=== PATIENT | female | born 1965 | race Caucasian/White ===

== ENCOUNTER → 2017-05-17 07:23 | Outpatient (CLI) | payer OTHER, SELFPAY ==
[2017-05-17 10:19] LABS: Absolute Lymphocyte Count 1.53 X10^3/ul (0.83-4.51); Basophil# 0.01 X10^3/uL; Basophil% 0.1 % (0-1); Eosinophil# 0.07 X10^3/uL; Eosinophils% 0.8 % (0-5); Hematocrit 41.5 % (37-47); Hemoglobin 13.3 g/dl (12.0-15.0); Lymphocyte # 1.53 X10^3/ul (4.0); Lymphocyte % 18.4 % (19-41); Mean Corpuscular Hgb 31.9 pg (27.0-32.0); Mean Corpuscular Volume 99.5 fL (81-99); Mean Platelet Vol. 9.5 fl (6.2-12.0); Monocyte# 0.74 X10^3/uL; Monocyte% 8.9 % (0-10); Neutrophil # 5.95 X10^3/uL (2.7-7.7); Neutrophil % 71.7 % (47-70); Platelet Count 241 K/mm3 (150-450); RBC Distribution Width CV 13.7 % (11.6-14.6); RBC Distribution Width SD 49.2 fl (35.1-43.9); Red Blood Count 4.17 M/mm3 (4.2-5.4); White Blood Count 8.3 K/mm3 (4.4-11.0)
[2017-05-17 10:26] LABS: POSITIVE DIFFERENTIAL NO
[2017-05-17 10:27] LABS: POSITIVE COUNT NO; POSITIVE MORPHOLOGY NO
[2017-05-17 10:34] LABS: ALB/GLOB Ratio 1.2 RATIO (0.9-2.4); AST(SGOT) 22 U/L (15-37); Alanine Aminotransfer ALT/SGPT 24 U/L (13-56); Albumin, Serum 3.7 g/dL (3.2-5.0); Alkaline Phosphatase 60 U/L (45-117); Anion Gap 6 (5-15); BUN 10 mg/dL (7-18); BUN/Creat Ratio 13.4 RATIO (10-20); Calcium,Total 8.9 mg/dL (8.5-10.1); Chloride 104 mmol/L (98-107); Creatinine, Serum 0.75 mg/dL (0.55-1.02); EST Glomerular Filtration Rate 87 mL/min (>60); Est Glom Filt Rate - Afr Amer 105 mL/min (>60); Globulin 3.1 g/dL (2.2-4.2); Glucose 84 mg/dL (74-106); Potassium 4.4 mmol/L (3.5-5.1); Protein, Total 6.8 g/dL (6.4-8.2); Sodium Level 141 mmol/L (136-145)
== END ==
PROVIDERS: Family Provider Family Medicine; PCP Family Medicine; Visit Provider Internal Medicine Rheumatology
DX: M06.09 Rheumatoid arthritis without rheumatoid factor, multiple sites (principal); Z79.899 Other long term (current) drug therapy; G43.809 Other migraine, not intractable, without status migrainosus; J45.909 Unspecified asthma, uncomplicated
CPT/HCPCS: 36415; 80053; 85025

== ENCOUNTER → 2017-08-05 13:50 | Outpatient (CLI) | payer OTHER, SELFPAY ==
[2017-08-05 15:44] LABS: Absolute Lymphocyte Count 2.02 X10^3/ul (0.83-4.51); Absolute Neutrophil Count 5.4 X10^3/uL (2.0-7.7); Basophil# 0.01 X10^3/uL; Basophil% 0.1 % (0-1); Eosinophil# 0.03 X10^3/uL; Eosinophils% 0.4 % (0-5); Hematocrit 42.2 % (37-47); Lymphocyte # 2.02 X10^3/ul (4.0); Lymphocyte % 25.2 % (19-41); Mean Corp Hgb Conc 33.2 g/gl (32-36); Mean Corpuscular Hgb 32.2 pg (27.0-32.0); Mean Platelet Vol. 9.5 fl (6.2-12.0); Monocyte# 0.56 X10^3/uL; Neutrophil # 5.37 X10^3/uL (2.7-7.7); Neutrophil % 67.1 % (47-70); Platelet Count 237 K/mm3 (150-450); RBC Distribution Width CV 14.2 % (11.6-14.6); RBC Distribution Width SD 48.7 fl (35.1-43.9); Red Blood Count 4.35 M/mm3 (4.2-5.4)
[2017-08-05 15:49] LABS: POSITIVE COUNT NO; POSITIVE DIFFERENTIAL NO; POSITIVE MORPHOLOGY NO
[2017-08-05 16:12] LABS: ALB/GLOB Ratio 1.4 RATIO (0.9-2.4); AST(SGOT) 18 U/L (15-37); Alanine Aminotransfer ALT/SGPT 20 U/L (13-56); Alkaline Phosphatase 72 U/L (45-117); Anion Gap 7 (5-15); BUN 11 mg/dL (7-18); BUN/Creat Ratio 15.5 RATIO (10-20); Calcium,Total 8.8 mg/dL (8.5-10.1); Chloride 106 mmol/L (98-107); Creatinine, Serum 0.71 mg/dL (0.55-1.02); EST Glomerular Filtration Rate 92 mL/min (>60); Est Glom Filt Rate - Afr Amer 112 mL/min (>60); Globulin 2.8 g/dL (2.2-4.2); Glucose 87 mg/dL (74-106); Protein, Total 6.8 g/dL (6.4-8.2); Sodium Level 141 mmol/L (136-145)
== END ==
PROVIDERS: Family Provider Family Medicine; PCP Family Medicine; Visit Provider Internal Medicine Rheumatology
DX: M06.09 Rheumatoid arthritis without rheumatoid factor, multiple sites (principal); G43.809 Other migraine, not intractable, without status migrainosus; J45.909 Unspecified asthma, uncomplicated; Z79.899 Other long term (current) drug therapy
CPT/HCPCS: 36415; 80053; 85025

== ENCOUNTER → 2017-10-21 13:55 | Outpatient (CLI) | payer OTHER, SELFPAY ==
[2017-10-21 15:32] LABS: Absolute Lymphocyte Count 2.53 X10^3/ul (0.83-4.51); Absolute Neutrophil Count 5.4 X10^3/uL (2.0-7.7); Basophil# 0.01 X10^3/uL; Basophil% 0.1 % (0-1); Eosinophil# 0.04 X10^3/uL; Eosinophils% 0.5 % (0-5); Hematocrit 41.4 % (37-47); Hemoglobin 13.6 g/dl (12.0-15.0); Lymphocyte # 2.53 X10^3/ul (4.0); Lymphocyte % 29.3 % (19-41); Mean Corp Hgb Conc 32.9 g/gl (32-36); Mean Corpuscular Hgb 32.3 pg (27.0-32.0); Mean Corpuscular Volume 98.3 fL (81-99); Mean Platelet Vol. 9.2 fl (6.2-12.0); Monocyte# 0.67 X10^3/uL; Monocyte% 7.8 % (0-10); Neutrophil # 5.38 X10^3/uL (2.7-7.7); Neutrophil % 62.2 % (47-70); Platelet Count 259 K/mm3 (150-450); RBC Distribution Width CV 14.8 % (11.6-14.6); RBC Distribution Width SD 52.5 fl (35.1-43.9); Red Blood Count 4.21 M/mm3 (4.2-5.4); White Blood Count 8.6 K/mm3 (4.4-11.0)
[2017-10-21 15:44] LABS: ALB/GLOB Ratio 1.2 RATIO (0.9-2.4); AST(SGOT) 15 U/L (15-37); Alanine Aminotransfer ALT/SGPT 21 U/L (13-56); Albumin, Serum 3.7 g/dL (3.2-5.0); Alkaline Phosphatase 72 U/L (45-117); Anion Gap 5 (5-15); BUN 12 mg/dL (7-18); BUN/Creat Ratio 15.3 RATIO (10-20); Calcium,Total 8.7 mg/dL (8.5-10.1); Chloride 106 mmol/L (98-107); Creatinine, Serum 0.78 mg/dL (0.55-1.02); EST Glomerular Filtration Rate 82 mL/min (>60); Est Glom Filt Rate - Afr Amer 99 mL/min (>60); Globulin 3.2 g/dL (2.2-4.2); Glucose 98 mg/dL (74-106); Potassium 3.8 mmol/L (3.5-5.1); Protein, Total 6.9 g/dL (6.4-8.2); Sodium Level 144 mmol/L (136-145)
[2017-10-21 15:48] LABS: POSITIVE COUNT NO; POSITIVE DIFFERENTIAL NO; POSITIVE MORPHOLOGY NO
== END ==
PROVIDERS: Family Provider Family Medicine; PCP Family Medicine; Visit Provider Internal Medicine Rheumatology
DX: M06.09 Rheumatoid arthritis without rheumatoid factor, multiple sites (principal); G43.809 Other migraine, not intractable, without status migrainosus; J45.909 Unspecified asthma, uncomplicated; Z79.899 Other long term (current) drug therapy
CPT/HCPCS: 36415; 80053; 85025

== ENCOUNTER → 2018-01-06 16:48 | Outpatient (CLI) | payer OTHER, SELFPAY ==
[2018-01-06 17:51] LABS: Absolute Lymphocyte Count 3.58 X10^3/ul (0.83-4.51); Basophil# 0.01 X10^3/uL; Basophil% 0.1 % (0-1); Eosinophil# 0.08 X10^3/uL; Eosinophils% 0.8 % (0-5); Hematocrit 42.3 % (37-47); Hemoglobin 13.6 g/dl (12.0-15.0); Lymphocyte # 3.58 X10^3/ul (4.0); Lymphocyte % 37.5 % (19-41); Mean Corp Hgb Conc 32.2 g/gl (32-36); Mean Corpuscular Hgb 32.5 pg (27.0-32.0); Mean Platelet Vol. 9.6 fl (6.2-12.0); Monocyte# 0.91 X10^3/uL; Monocyte% 9.5 % (0-10); Neutrophil # 4.95 X10^3/uL (2.7-7.7); POSITIVE COUNT NO; POSITIVE DIFFERENTIAL NO; POSITIVE MORPHOLOGY NO; Platelet Count 255 K/mm3 (150-450); RBC Distribution Width CV 14.8 % (11.6-14.6); RBC Distribution Width SD 53.6 fl (35.1-43.9); Red Blood Count 4.19 M/mm3 (4.2-5.4); White Blood Count 9.5 K/mm3 (4.4-11.0)
[2018-01-06 18:03] LABS: ALB/GLOB Ratio 1.3 RATIO (0.9-2.4); AST(SGOT) 14 U/L (15-37); Alanine Aminotransfer ALT/SGPT 22 U/L (13-56); Albumin, Serum 3.7 g/dL (3.2-5.0); Alkaline Phosphatase 82 U/L (45-117); Anion Gap 7 (5-15); BUN 13 mg/dL (7-18); BUN/Creat Ratio 14.5 RATIO (10-20); Chloride 106 mmol/L (98-107); EST Glomerular Filtration Rate 70 mL/min (>60); Est Glom Filt Rate - Afr Amer 85 mL/min (>60); Globulin 2.9 g/dL (2.2-4.2); Glucose 85 mg/dL (74-106); Protein, Total 6.6 g/dL (6.4-8.2); Sodium Level 144 mmol/L (136-145)
== END ==
PROVIDERS: Family Provider Family Medicine; PCP Family Medicine; Referring Provider Internal Medicine Rheumatology; Visit Provider Internal Medicine Rheumatology
DX: M06.09 Rheumatoid arthritis without rheumatoid factor, multiple sites (principal); Z79.899 Other long term (current) drug therapy; G43.809 Other migraine, not intractable, without status migrainosus; J45.909 Unspecified asthma, uncomplicated
CPT/HCPCS: 36415; 80053; 85025

== ENCOUNTER 2018-01-09 02:55 | Emergency (ER) | payer OTHER, SELFPAY ==
[2018-01-09 02:56] VITALS: BP 117/87; PULSE 88; RESP 14; TEMP 36.6; O2SAT 100; BMI 19.8
[2018-01-09] MEDS: 0.9% Normal Saline 1,000 ML 1000 ML IV (03:07)
[2018-01-09] MEDS: Ondansetron 4 MG/2 ML Vial IV ×2 (03:07→03:47)
--- NOTE | 2018-01-09 03:09 | ED.VISSUMM ---
- ER Visit Summary Date of Service: 01/09/18 Chief Complaint: Nausea and vomiting History of Present Illness: The patient is a 52 F past medical history of COPD and rheumatoid arthritis. Is having elective colonoscopy later today. On Tuesday she started drinking the bowel prep GoLYTELY. She started having nausea and vomiting around midnight which is continued. She states she is thrown up 7 times. Denies any hematemesis. Has had bowel movement since the GoLYTELY. She denies any abdominal pain other than some mild cramping. Denies any dysuria. Denies any fever. States she felt fine prior to taking the GoLYTELY. Physical Examination: Vital signs are stable. Afebrile. Her initial blood pressure is 117/87. She is in no distress. She is actively vomiting in the room. H EENT exam pupils round reactive light. No facial droop. No signs of trauma. Tongue has dry mucous membranes. Neck nontender. Lungs clear to auscultation bilaterally. Heart regular rate and rhythm no murmur. Abdomen is soft. Nondistended. Normal bowel sounds. No peritoneal signs. No signs of obstruction. Patient is moving all 4 extremities. The neurovascular intact. No edema. Neurologically she is awake and alert with no focal motor deficits. Test Results: None are necessary at this time. I did review the patient had recent lab that were unremarkable. These included a CBC, BMP and liver enzymes. Emergency Department Course and Treatment: Patient treated with IV fluids and IV Zofran. P.o. fluid challenge. Patient was given a second dose of IV Zofran. She is feeling better. At 04:45 AM she has been able to hold down p.o. fluids. She feels comfortable being discharged home. Her repeat abdominal exam is benign and nontender. Treatment Plan: Plenty of fluids and rest. Zofran as needed for nausea. Disposition: Discharge Impression: Acute nausea and vomiting after taking the bowel prep GoLytely Mild dehydration This note was generated with [employer]* dictation software. It may contain incorrect words, spelling, and punctuation that were not noted in review of the chart prior to signing ED Disposition - Plan for ED Patient: Disposition: Home or Assisted Living Chief Complaint: Nausea/Vomiting Instructions: ED Nausea Vomiting Prescriptions: Ondansetron [Zofran Odt] 4 mg PO Q8H PRN PRN #7 tab PRN Reason: Nausea Referrals: Hari Elizondo MD [Primary Care Provider] - As Needed Additional Instructions: Plenty of fluids and rest. Increase your diet very slowly. Next Call follow-up with your GI doctor. I would call their office first thing this morning once they open if you are not going to have the colonoscopy done. Zofran as needed for nausea. You may dissolve the medication underneath her tongue or swallow the pill if able. Return if unable to keep fluids down or are feeling worse.
--- NOTE | 2018-01-09 03:11 | ED.DEP ---
ED Disposition - Plan for ED Patient: Disposition: Home or Assisted Living Chief Complaint: Nausea/Vomiting Instructions: ED Nausea Vomiting Prescriptions: Ondansetron [Zofran Odt] 4 mg PO Q8H PRN PRN #7 tab PRN Reason: Nausea Referrals: Hari Elizondo MD [Primary Care Provider] - As Needed Additional Instructions: Plenty of fluids and rest. Increase your diet very slowly. Next Call follow-up with your GI doctor. I would call their office first thing this morning once they open if you are not going to have the colonoscopy done. Zofran as needed for nausea. You may dissolve the medication underneath her tongue or swallow the pill if able. Return if unable to keep fluids down or are feeling worse.
[2018-01-09 03:52] VITALS: BP 119/63; PULSE 83; RESP 16; O2SAT 99
[2018-01-09] MEDS: Ondansetron ODT 4 MG Tablet PO (04:58)
[2018-01-09 05:01] VITALS: BP 122/71; PULSE 79; PULSE 81; RESP 18; O2SAT 96
== END 2018-01-09 05:07 | disposition home or self-care (01) ==
LOC: ED 03:19
PROVIDERS: Emergency Provider Emergency Medicine; Family Provider Family Medicine; PCP Family Medicine
DX: R11.2 Nausea with vomiting, unspecified (principal); E86.0 Dehydration; M06.9 Rheumatoid arthritis, unspecified; Z72.0 Tobacco use; Z79.899 Other long term (current) drug therapy
CPT/HCPCS: 96374; 96376; 99283; J7030; J2405

== ENCOUNTER 2018-06-07 07:35 | Emergency (ER) | payer OTHER, SELFPAY ==
[2018-06-07 07:36] VITALS: BP 131/84; PULSE 86; RESP 18; TEMP 36.8; O2SAT 100; BMI 19.1
--- NOTE | 2018-06-07 08:06 | CT_ITS ---
STUDY: CTA CHEST REASON FOR EXAM: Female, 52 years old. Shortness of breath. RADIATION DOSAGE (If Supplied By Facility): CTDIvol = ( 3.36 ) mGy, DLP = ( 134.48 ) mGycm TECHNIQUE: The examination was performed with the intravenous administration of 100 IV Isovue 370. Post-processing of the angiographic images was performed, with multiplanar reformation and 3D reconstruction. Individualized dose optimization techniques were used for this CT. COMPARISON: None. FINDINGS: Bilateral breast implants. Normal enhancement of the main pulmonary artery and right and left pulmonary arteries. Normal enhancement of the bilateral peripheral pulmonary arteries. There is no demonstrated pulmonary embolism. Normal thoracic aorta and visualized great vessels. There is no demonstrated aortic dissection. Normal heart and pericardium. Normal mediastinum. Normal hilar regions. Normal visualized trachea and bronchi. Hyperinflation. Emphysematous changes with bullous formation in both lungs more prominent in the upper lobes. Normal pulmonary parenchyma. Normal pleura. Normal chest wall structures. Normal osseous structures. Normal visualized upper abdomen. CT/CTA Chest W/WO Contrast IMPRESSION: Hyperinflation. Emphysematous changes. Electronically Signed: Naun Pastor, at 9:52 EDT , Service support ,
--- NOTE | 2018-06-07 08:12 | ED.DCSUM_ITS ---
- ER Visit Summary Date of Service: 06/07/18 Chief Complaint: My lungs hurt History of Present Illness: The patient is a 52 F with history of smoking and asthma. She is on methotrexate and 5 mg prednisone at baseline for rheumatoid arthritis. Patient states she was cleaning on May 27 and start up some dust. She woke up the next morning with cough and her lungs hurt. She went to urgent care that day and was given Flonase. They told her to maintain her baseline prednisone. Patient went to see Anthony Kruger 3 times over the past week and a half. She had a clear chest x-ray. She is currently on prednisone 40 mg and doxycycline. Patient presents stating that her lungs still hurt and she has not significantly better. Physical Examination: Vital signs are unremarkable. Patient sitting upright in bed no acute distress. She is speaking full sentences. Head neck examination unremarkable. Heart is regular rate and rhythm. Lung sounds are clear. Abdomen is soft nontender. Lower extremity examination reveals no calf tenderness or edema. Test Results: CBC was a white count of 14.3 but patient has been on increased dose of steroids for last week and a half. Chemistry studies unremarkable. CTA of the chest shows hyperinflation with some emphysematous changes. Emergency Department Course and Treatment: She was given a DuoNeb treatment. On repeat evaluation she does feel that that helped. She does have an inhaler at home and will use that every 4-6 hours to see if that helps her symptoms. She will be given a new prescription for prednisone tabs to do a taper as she is about out of her pills. She will be referred to pulmonology for follow-up. Treatment Plan: [] Disposition: Discharge Impression: Dyspnea This note was generated with [employer] dictation software. It may contain incorrect words, spelling, and punctuation that were not noted in review of the chart prior to signing ED Disposition - Plan for ED Patient: Referrals: Hari Elizondo MD [Primary Care Provider] -
[2018-06-07] MEDS: Ipratropium/Albuterol Sulfate 3 ML AMPUL.NEB INHALATION (08:19)
[2018-06-07 08:20] VITALS: PULSE 80; RESP 16
[2018-06-07] MEDS: 0.9% Normal Saline 1,000 ML 100 ML IV (08:41)
[2018-06-07 09:00] LABS: Absolute Lymphocyte Count 1.55 X10^3/ul (0.83-4.51); Absolute Neutrophil Count 12.3 X10^3/uL (2.0-7.7); Eosinophil# 0.01 X10^3/uL; Eosinophils% 0.1 % (0-5); Hematocrit 45.6 % (37-47); Hemoglobin 15.5 g/dl (12.0-15.0); Lymphocyte # 1.55 X10^3/ul (4.0); Lymphocyte % 10.9 % (19-41); Mean Corpuscular Hgb 32.9 pg (27.0-32.0); Mean Corpuscular Volume 96.8 fL (81-99); Mean Platelet Vol. 9.1 fl (6.2-12.0); Monocyte# 0.38 X10^3/uL; Monocyte% 2.7 % (0-10); Neutrophil # 12.27 X10^3/uL (2.7-7.7); Neutrophil % 85.9 % (47-70); Platelet Count 259 K/mm3 (150-450); RBC Distribution Width CV 14.6 % (11.6-14.6); RBC Distribution Width SD 51.9 fl (35.1-43.9); Red Blood Count 4.71 M/mm3 (4.2-5.4); White Blood Count 14.3 K/mm3 (4.4-11.0)
[2018-06-07 09:02] LABS: POSITIVE COUNT NO; POSITIVE DIFFERENTIAL NO; POSITIVE MORPHOLOGY NO
[2018-06-07 09:19] LABS: Anion Gap 8 (5-15); BUN 9 mg/dL (7-18); BUN/Creat Ratio 10.7 RATIO (10-20); Calcium,Total 9.3 mg/dL (8.5-10.1); Chloride 106 mmol/L (98-107); Creatinine, Serum 0.84 mg/dL (0.55-1.02); EST Glomerular Filtration Rate 75 mL/min (>60); Est Glom Filt Rate - Afr Amer 91 mL/min (>60); Estimated Creatinine Clearance 56.66 ml/min; Glucose 111 mg/dL (74-106); Potassium 3.5 mmol/L (3.5-5.1); Sodium Level 140 mmol/L (136-145)
[2018-06-07 10:26] VITALS: BP 123/80; PULSE 80; RESP 18; O2SAT 99
--- NOTE | 2018-06-07 10:31 | ED.DEP ---
ED Disposition - Plan for ED Patient: Disposition: Home or Assisted Living Instructions: ED COPD Flare Prescriptions: Prednisone 10 mg PO UD #33 tablet Referrals: Edgar Rangel MD [STAFF PHYSICIAN] - As soon as possible
== END 2018-06-07 10:43 | disposition home or self-care (01) ==
PROVIDERS: Emergency Provider Emergency Medicine; Family Provider Family Medicine; PCP Family Medicine
DX: R06.00 Dyspnea, unspecified (principal); J45.909 Unspecified asthma, uncomplicated; M06.9 Rheumatoid arthritis, unspecified; J44.9 Chronic obstructive pulmonary disease, unspecified; Z79.52 Long term (current) use of systemic steroids; Z72.0 Tobacco use; Z79.51 Long term (current) use of inhaled steroids; Z79.899 Other long term (current) drug therapy
CPT/HCPCS: 71275; 80048; 85025; 94640; 96360; 96361; 99283; J7030; Q9967; A4216

== ENCOUNTER 2018-06-11 05:50 | Emergency (ER) | payer OTHER, SELFPAY ==
[2018-06-11 05:52] VITALS: BP 164/111; PULSE 87; RESP 19; TEMP 36.6; O2SAT 99; BMI 19.6
--- NOTE | 2018-06-11 05:53 | ED.RN ---
RN CALLED FOR EKG, NO OLD EKGS IN MUSE
[2018-06-11 05:54] VITALS: O2SAT 100
--- NOTE | 2018-06-11 06:12 | RAD_ITS ---
STUDY: X-RAY CHEST REASON FOR EXAM: Female, 52 years old. Chest pain. History of COPD. TECHNIQUE: Frontal and lateral views of the chest. COMPARISON: 04/15/2016. FINDINGS: The lungs are clear and mildly hyper expanded. There is no demonstrated pleural abnormality. There are breast implants. Normal size heart. Normal mediastinum and panfilo. Normal visualized pulmonary arteries. Normal visualized aortic arch and descending thoracic aorta. Normal visualized thoracic spine. Normal visualized ribs, clavicles, and shoulders. There is no demonstrated abnormality of the visualized soft tissue structures of the upper abdomen. RAD/Chest PA and Lateral IMPRESSION: Hyperexpansion of the lungs, which may represent COPD. No demonstrated pulmonary infiltrate. Electronically Signed: Marcell Chan MD at 7:09 EDT , Service support ,
--- NOTE | 2018-06-11 06:12 | EKG12_ITS ---
Test Reason : SOB Blood Pressure : / mmHG Vent. Rate : 086 BPM Atrial Rate : 086 BPM P-R Int : 102 ms QRS Dur : 070 ms QT Int : 348 ms P-R-T Axes : 082 076 043 degrees QTc Int : 416 ms Sinus rhythm with short PA Possible Left atrial enlargement Nonspecific ST abnormality Abnormal ECG Confirmed by SKYLER JASMINE, ALISSON ([id number]), editor news ASH VIZCAINO ([id number]) on 06/13/2018 1:20:25 PM Referred By: ANNA Confirmed By:ALISSON HOLLAND MD
[2018-06-11] MEDS: Naproxen 500 MG Tablet PO (06:20)
--- NOTE | 2018-06-11 06:39 | ED.VISSUMM ---
- ER Visit Summary Date of Service: 06/11/18 Chief Complaint: Shortness of breath History of Present Illness: The patient is a 52 F who presents with shortness of breath. She is felt short of breath for the past 2 weeks. She complains of increased cough. She was initially seen in urgent care. She was diagnosed with bronchitis. She was put on Flonase. She has seen her primary care provider multiple times as well. She was recently seen in the emergency department and diagnosed with a COPD exacerbation. She has also been complaining of lung pain. She had a CTA on her most recent visit which was negative. She was put on steroids and antibiotics for COPD exacerbation. She is concerned because she is has never heard of a COPD flare or exacerbation. She also states that her pupils seemed small today and she was concerned. No fevers, no nausea, no vomiting. She states currently her breathing has actually improved. She states her chest pain was in the posterior chest. Physical Examination: Initial blood pressure 164/111 but on repeat is 138/98 vitals otherwise normal afebrile Heart regular rate and rhythm Lungs are clear no reproducible chest tenderness Abdomen soft Alert Test Results: EKG shows sinus rhythm at a rate of [address] depression in leads V4 through V6 leads II, III and aVF. No prior to compare to. Labs notable for white blood cell count 14.8. Chemistries normal. Troponin negative. Two-view chest x-ray on my review shows no acute process. Emergency Department Course and Treatment: Patient was given naproxen here for pain. She has undergone recent workup including laboratory studies previous chest x-ray previous CTA. She has not had an EKG and she had subtle abnormalities. Although this does not sound cardiac in nature I did check a troponin which is normal. I suspect her symptoms are related to chest wall strain from coughing and likely component of pleurisy. She was given naproxen. She was given a prescription for the same. She was advised on supportive care. She was advised to follow-up with her primary care provider as needed and was discharged home. Treatment Plan: [] Disposition: Discharge Impression: Chest pain COPD This note was generated with [employer] dictation software. It may contain incorrect words, spelling, and punctuation that were not noted in review of the chart prior to signing ED Disposition - Plan for ED Patient: Referrals: Hari Elizondo MD [Primary Care Provider] -
[2018-06-11 06:40] VITALS: BP 137/90; PULSE 69; RESP 17; TEMP 36.9; O2SAT 100
[2018-06-11 06:41] LABS: Absolute Lymphocyte Count 4.76 X10^3/ul (0.83-4.51); Absolute Neutrophil Count 8.6 X10^3/uL (2.0-7.7); Basophil# 0.01 X10^3/uL; Basophil% 0.1 % (0-1); Eosinophil# 0.07 X10^3/uL; Eosinophils% 0.5 % (0-5); Hematocrit 44.3 % (37-47); Hemoglobin 14.8 g/dl (12.0-15.0); Lymphocyte # 4.76 X10^3/ul (4.0); Lymphocyte % 32.2 % (19-41); Mean Corp Hgb Conc 33.4 g/gl (32-36); Mean Corpuscular Hgb 32.2 pg (27.0-32.0); Mean Corpuscular Volume 96.5 fL (81-99); Mean Platelet Vol. 8.7 fl (6.2-12.0); Monocyte# 1.26 X10^3/uL; Monocyte% 8.5 % (0-10); Neutrophil % 58.3 % (47-70); Platelet Count 255 K/mm3 (150-450); RBC Distribution Width CV 14.8 % (11.6-14.6); RBC Distribution Width SD 51.6 fl (35.1-43.9); Red Blood Count 4.59 M/mm3 (4.2-5.4); White Blood Count 14.8 K/mm3 (4.4-11.0)
[2018-06-11 06:42] LABS: POSITIVE COUNT NO; POSITIVE DIFFERENTIAL NO; POSITIVE MORPHOLOGY NO
[2018-06-11 06:57] LABS: Anion Gap 7 (5-15); BUN 12 mg/dL (7-18); Calcium,Total 8.9 mg/dL (8.5-10.1); Chloride 108 mmol/L (98-107); Creatinine, Serum 0.86 mg/dL (0.55-1.02); EST Glomerular Filtration Rate 74 mL/min (>60); Est Glom Filt Rate - Afr Amer 89 mL/min (>60); Estimated Creatinine Clearance 57.02 ml/min; Glucose 94 mg/dL (74-106); Potassium 3.7 mmol/L (3.5-5.1); Sodium Level 141 mmol/L (136-145)
[2018-06-11 07:07] VITALS: BP 140/94; PULSE 73; RESP 16; TEMP 36.9; O2SAT 100
--- NOTE | 2018-06-11 07:09 | ED.DEP ---
ED Disposition - Plan for ED Patient: Instructions: ED Chest Pain Pleurisy, ED COPD Flare Prescriptions: Naproxen [Naprosyn] 500 mg PO BID #20 tab Referrals: Hari Elizondo MD [Primary Care Provider] -
[2018-06-11 07:15] VITALS: BP 140/99; PULSE 70; RESP 17; O2SAT 98
== END 2018-06-11 08:07 | disposition home or self-care (01) ==
LOC: ED 06:26
PROVIDERS: Emergency Provider Emergency Medicine; Family Provider Family Medicine; PCP Family Medicine
DX: R07.9 Chest pain, unspecified (principal); J44.9 Chronic obstructive pulmonary disease, unspecified; J45.909 Unspecified asthma, uncomplicated; Z72.0 Tobacco use; Z79.51 Long term (current) use of inhaled steroids
CPT/HCPCS: 71046; 80048; 84484; 85025; 93005; 99283; A4216

== ENCOUNTER → 2018-08-04 | Outpatient (CLI) | payer OTHER, SELFPAY ==
[2018-08-04 15:45] LABS: ALB/GLOB Ratio 1.4 RATIO (0.9-2.4); AST(SGOT) 15 U/L (15-37); Alanine Aminotransfer ALT/SGPT 22 U/L (13-56); Albumin, Serum 3.9 g/dL (3.2-5.0); Alkaline Phosphatase 67 U/L (45-117); Anion Gap 3 (5-15); BUN 11 mg/dL (7-18); BUN/Creat Ratio 13.7 RATIO (10-20); Calcium,Total 9.1 mg/dL (8.5-10.1); Chloride 106 mmol/L (98-107); EST Glomerular Filtration Rate 80 mL/min (>60); Est Glom Filt Rate - Afr Amer 96 mL/min (>60); Globulin 2.8 g/dL (2.2-4.2); Glucose 112 mg/dL (74-106); Potassium 3.9 mmol/L (3.5-5.1); Protein, Total 6.7 g/dL (6.4-8.2); Sodium Level 139 mmol/L (136-145)
[2018-08-04 17:22] LABS: Absolute Lymphocyte Count 2.29 X10^3/ul (0.83-4.51); Absolute Neutrophil Count 5.3 X10^3/uL (2.0-7.7); Basophil# 0.02 X10^3/uL; Basophil% 0.2 % (0-1); Eosinophil# 0.04 X10^3/uL; Eosinophils% 0.5 % (0-5); Hematocrit 41.8 % (37-47); Hemoglobin 13.9 g/dl (12.0-15.0); Lymphocyte # 2.29 X10^3/ul (4.0); Mean Corp Hgb Conc 33.3 g/gl (32-36); Mean Corpuscular Hgb 32.3 pg (27.0-32.0); Mean Corpuscular Volume 97.2 fL (81-99); Mean Platelet Vol. 9.5 fl (6.2-12.0); Monocyte# 0.55 X10^3/uL; Monocyte% 6.7 % (0-10); Neutrophil # 5.26 X10^3/uL (2.7-7.7); Neutrophil % 64.4 % (47-70); Platelet Count 275 K/mm3 (150-450); RBC Distribution Width CV 14.7 % (11.6-14.6); White Blood Count 8.2 K/mm3 (4.4-11.0)
[2018-08-04 17:25] LABS: POSITIVE COUNT NO; POSITIVE DIFFERENTIAL NO; POSITIVE MORPHOLOGY NO
== END | disposition home or self-care (01) ==
LOC: MTLAB 13:51
PROVIDERS: Family Provider Family Medicine; PCP Family Medicine; Referring Provider Internal Medicine Rheumatology; Visit Provider Internal Medicine Rheumatology
DX: M06.00 Rheumatoid arthritis without rheumatoid factor, unspecified site (principal); G56.01 Carpal tunnel syndrome, right upper limb; G43.809 Other migraine, not intractable, without status migrainosus; J45.909 Unspecified asthma, uncomplicated; Z79.899 Other long term (current) drug therapy
CPT/HCPCS: 36415; 80053; 85025

== ENCOUNTER → 2018-11-03 | Outpatient (CLI) | payer OTHER, SELFPAY ==
[2018-11-03 10:39] LABS: Absolute Lymphocyte Count 1.43 X10^3/uL (0.83-4.51); Absolute Neutrophil Count 7.3 X10^3/uL (2.0-7.7); Basophil# 0.03 X10^3/uL; Basophil% 0.3 % (0-1); Eosinophil# 0.05 X10^3/uL; Eosinophils% 0.5 % (0-5); Hematocrit 41.3 % (37-47); Hemoglobin 13.7 g/dL (12.0-15.0); Lymphocyte # 1.43 X10^3/ul (4.0); Lymphocyte % 15.2 % (19-41); Mean Corp Hgb Conc 33.2 g/dL (32-36); Mean Corpuscular Hgb 32.4 pg (27.0-32.0); Mean Corpuscular Volume 97.6 fL (81-99); Mean Platelet Vol. 9.4 fl (6.2-12.0); Monocyte# 0.59 X10^3/uL; Monocyte% 6.3 % (0-10); NRBC Flagged by Analyzer 0 % (0-5); Neutrophil # 7.25 X10^3/uL (2.7-7.7); Neutrophil % 77.2 % (47-70); Platelet Count 250 K/mm3 (150-450); RBC Distribution Width CV 14.4 % (11.6-14.6); RBC Distribution Width SD 51.1 fl (35.1-43.9); Red Blood Count 4.23 M/mm3 (4.2-5.4); White Blood Count 9.4 K/mm3 (4.4-11.0)
[2018-11-03 11:01] LABS: ALB/GLOB Ratio 1.2 RATIO (0.9-2.4); AST(SGOT) 20 U/L (15-37); Alanine Aminotransfer ALT/SGPT 23 U/L (13-56); Albumin, Serum 3.8 g/dL (3.2-5.0); Alkaline Phosphatase 66 U/L (45-117); Anion Gap 7 (5-15); BUN 12 mg/dL (7-18); BUN/Creat Ratio 14.9 RATIO (10-20); Chloride 106 mmol/L (98-107); EST Glomerular Filtration Rate 79 mL/min (>60); Est Glom Filt Rate - Afr Amer 96 mL/min (>60); Globulin 3.1 g/dL (2.2-4.2); Glucose 100 mg/dL (74-106); Potassium 3.9 mmol/L (3.5-5.1); Protein, Total 6.9 g/dL (6.4-8.2); Sodium Level 140 mmol/L (136-145)
== END | disposition home or self-care (01) ==
LOC: MTLAB 08:54
PROVIDERS: Family Provider Family Medicine; PCP Family Medicine; Referring Provider Internal Medicine Rheumatology; Visit Provider Internal Medicine Rheumatology
DX: M06.09 Rheumatoid arthritis without rheumatoid factor, multiple sites (principal); M18.11 Unilateral primary osteoarthritis of first carpometacarpal joint, right hand; G56.01 Carpal tunnel syndrome, right upper limb; G43.809 Other migraine, not intractable, without status migrainosus; J45.909 Unspecified asthma, uncomplicated; Z79.899 Other long term (current) drug therapy
CPT/HCPCS: 36415; 80053; 85025

== ENCOUNTER → 2018-11-17 | Outpatient (CLI) | payer OTHER, SELFPAY ==
[2018-11-17 08:19] VITALS: BMI 19.6
--- NOTE | 2018-11-17 08:23 | RAD_ITS ---
STUDY: X-RAY - LEFT SHOULDER REASON FOR EXAM: Increasing shoulder pain. TECHNIQUE: 4 view(s) of the shoulder. COMPARISON: None. FINDINGS: Normal glenohumeral articulation. Normal acromioclavicular joint. Normal acromion. Normal humeral head and visualized proximal humerus. The soft tissue structures are unremarkable. Normal visualized pulmonary apex. RAD/Shoulder min 2 Views IMPRESSION: Normal x-ray examination of the left shoulder. Electronically Signed: Robel Nye MD at 14:58 EDT Tel , Service support ,
== END | disposition home or self-care (01) ==
LOC: HPRAD 08:22
PROVIDERS: Family Provider Family Medicine; PCP Family Medicine; Referring Provider Orthopaedic Surgery; Visit Provider Orthopaedic Surgery
DX: M25.511 Pain in right shoulder (principal)
CPT/HCPCS: 73030

== ENCOUNTER → 2019-01-26 | Outpatient (CLI) | payer OTHER, SELFPAY ==
[2018-11-17 08:19] VITALS: BMI 19.6
[2019-01-26 18:18] LABS: Absolute Lymphocyte Count 3.24 X10^3/uL (0.83-4.51); Absolute Neutrophil Count 5.8 X10^3/uL (2.0-7.7); Basophil# 0.02 X10^3/uL; Basophil% 0.2 % (0-1); Eosinophil# 0.05 X10^3/uL; Eosinophils% 0.5 % (0-5); Hematocrit 43.5 % (37-47); Hemoglobin 13.8 g/dL (12.0-15.0); Lymphocyte # 3.24 X10^3/ul (4.0); Lymphocyte % 32.9 % (19-41); Mean Corp Hgb Conc 31.7 g/dL (32-36); Mean Corpuscular Hgb 31.8 pg (27.0-32.0); Mean Corpuscular Volume 100.2 fL (81-99); Mean Platelet Vol. 9.3 fl (6.2-12.0); Monocyte# 0.72 X10^3/uL; Monocyte% 7.3 % (0-10); NRBC Flagged by Analyzer 0 % (0-5); Neutrophil # 5.79 X10^3/uL (2.7-7.7); Neutrophil % 58.7 % (47-70); Platelet Count 259 K/mm3 (150-450); RBC Distribution Width CV 13.8 % (11.6-14.6); RBC Distribution Width SD 50.8 fl (35.1-43.9); Red Blood Count 4.34 M/mm3 (4.2-5.4); White Blood Count 9.9 K/mm3 (4.4-11.0)
[2019-01-26 18:27] LABS: ALB/GLOB Ratio 1.3 RATIO (0.9-2.4); AST(SGOT) 18 U/L (15-37); Alanine Aminotransfer ALT/SGPT 22 U/L (13-56); Albumin, Serum 3.8 g/dL (3.2-5.0); Alkaline Phosphatase 70 U/L (45-117); Anion Gap 8 (5-15); BUN 13 mg/dL (7-18); BUN/Creat Ratio 15.7 RATIO (10-20); Calcium,Total 9.1 mg/dL (8.5-10.1); Chloride 105 mmol/L (98-107); Creatinine, Serum 0.83 mg/dL (0.55-1.02); EST Glomerular Filtration Rate 77 mL/min (>60); Est Glom Filt Rate - Afr Amer 93 mL/min (>60); Glucose 90 mg/dL (74-106); Protein, Total 6.8 g/dL (6.4-8.2); Sodium Level 142 mmol/L (136-145)
== END | disposition home or self-care (01) ==
LOC: MTLAB 16:49
PROVIDERS: Family Provider Family Medicine; PCP Family Medicine; Referring Provider Internal Medicine Rheumatology; Visit Provider Internal Medicine Rheumatology
DX: M06.09 Rheumatoid arthritis without rheumatoid factor, multiple sites (principal); M18.11 Unilateral primary osteoarthritis of first carpometacarpal joint, right hand; G56.01 Carpal tunnel syndrome, right upper limb; G43.809 Other migraine, not intractable, without status migrainosus; J45.909 Unspecified asthma, uncomplicated; Z79.899 Other long term (current) drug therapy
CPT/HCPCS: 36415; 80053; 85025

== ENCOUNTER → 2019-04-23 07:11 | Outpatient (CLI) | payer OTHER, SELFPAY ==
[2019-03-05 07:59] VITALS: BMI 19.6
[2019-04-23 10:20] LABS: Absolute Lymphocyte Count 1.93 X10^3/uL (0.83-4.51); Absolute Neutrophil Count 7.3 X10^3/uL (2.0-7.7); Basophil# 0.03 X10^3/uL; Basophil% 0.3 % (0-1); Eosinophil# 0.05 X10^3/uL; Eosinophils% 0.5 % (0-5); Hematocrit 43.6 % (37-47); Hemoglobin 13.8 g/dL (12.0-15.0); Lymphocyte # 1.93 X10^3/ul (4.0); Mean Corp Hgb Conc 31.7 g/dL (32-36); Mean Corpuscular Hgb 31.2 pg (27.0-32.0); Mean Corpuscular Volume 98.4 fL (81-99); Mean Platelet Vol. 9.5 fl (6.2-12.0); Monocyte# 0.82 X10^3/uL; Monocyte% 8.1 % (0-10); NRBC Flagged by Analyzer 0 % (0-5); Neutrophil # 7.28 X10^3/uL (2.7-7.7); Neutrophil % 71.7 % (47-70); Platelet Count 258 K/mm3 (150-450); RBC Distribution Width CV 13.8 % (11.6-14.6); RBC Distribution Width SD 50.2 fl (35.1-43.9); Red Blood Count 4.43 M/mm3 (4.2-5.4); White Blood Count 10.2 K/mm3 (4.4-11.0)
[2019-04-23 10:38] LABS: ALB/GLOB Ratio 1.3 RATIO (0.9-2.4); AST(SGOT) 20 U/L (15-37); Alanine Aminotransfer ALT/SGPT 26 U/L (13-56); Albumin, Serum 3.8 g/dL (3.2-5.0); Alkaline Phosphatase 64 U/L (45-117); Anion Gap 3 (5-15); BUN 15 mg/dL (7-18); BUN/Creat Ratio 18.5 RATIO (10-20); Calcium,Total 9.1 mg/dL (8.5-10.1); Chloride 111 mmol/L (98-107); Creatinine, Serum 0.81 mg/dL (0.55-1.02); EST Glomerular Filtration Rate 79 mL/min (>60); Est Glom Filt Rate - Afr Amer 95 mL/min (>60); Glucose 85 mg/dL (74-106); Protein, Total 6.8 g/dL (6.4-8.2); Sodium Level 141 mmol/L (136-145)
== END ==
PROVIDERS: PCP Physician Assistant; Referring Provider Internal Medicine Rheumatology; Visit Provider Internal Medicine Rheumatology
DX: M06.09 Rheumatoid arthritis without rheumatoid factor, multiple sites (principal); M18.11 Unilateral primary osteoarthritis of first carpometacarpal joint, right hand; G56.01 Carpal tunnel syndrome, right upper limb; G43.809 Other migraine, not intractable, without status migrainosus; J45.909 Unspecified asthma, uncomplicated; Z79.899 Other long term (current) drug therapy
CPT/HCPCS: 36415; 80053; 85025

== ENCOUNTER → 2019-07-30 11:14 | Outpatient (CLI) | payer BC, SELFPAY ==
[2019-03-05 07:59] VITALS: BMI 19.6
--- NOTE | 2019-07-30 11:15 | RAD_ITS ---
STUDY: X-RAY - RIGHT WRIST REASON FOR EXAM: Female, 54 years old. medial wrist pain TECHNIQUE: 3 view(s) of the wrist were obtained. COMPARISON: None. FINDINGS: Normal visualized distal radius and ulna. Normal radiocarpal articulation. Normal distal radioulnar articulation. Normal carpal bones. Normal carpal articulations. Normal carpometacarpal articulation of the thumb. Normal second through fifth carpometacarpal articulations. Normal visualized metacarpal bones. The soft tissue structures are unremarkable. RAD/Wrist min 3 Views IMPRESSION: Normal x-ray examination of the wrist. Electronically Signed: Fredy Shannon MD at 13:45 EDT Tel , Service support ,
== END ==
PROVIDERS: PCP Physician Assistant; Referring Provider Physician Assistant; Visit Provider Physician Assistant
DX: M25.531 Pain in right wrist (principal)
CPT/HCPCS: 73110

== ENCOUNTER → 2020-01-09 08:54 | Outpatient (CLI) | payer BC, SELFPAY ==
[2019-07-30 11:35] VITALS: BMI 19.6
[2020-01-09 10:35] LABS: Absolute Lymphocyte Count 1.69 X10^3/uL (0.83-4.51); Basophil# 0.02 X10^3/uL; Basophil% 0.3 % (0-1); Eosinophil# 0.04 X10^3/uL; Eosinophils% 0.6 % (0-5); Hematocrit 42.1 % (37-47); Hemoglobin 13.5 g/dL (12.0-15.0); Lymphocyte # 1.69 X10^3/ul (4.0); Lymphocyte % 23.7 % (19-41); Mean Corp Hgb Conc 32.1 g/dL (32-36); Mean Corpuscular Hgb 32.3 pg (27.0-32.0); Mean Corpuscular Volume 100.7 fL (81-99); Mean Platelet Vol. 9.2 fl (6.2-12.0); Monocyte# 0.37 X10^3/uL; Monocyte% 5.2 % (0-10); NRBC Flagged by Analyzer 0 % (0-5); Neutrophil % 69.9 % (47-70); Platelet Count 266 K/mm3 (150-450); RBC Distribution Width CV 14.3 % (11.6-14.6); RBC Distribution Width SD 52.5 fl (35.1-43.9); Red Blood Count 4.18 M/mm3 (4.2-5.4); White Blood Count 7.1 K/mm3 (4.4-11.0)
[2020-01-09 11:01] LABS: ALB/GLOB Ratio 1.3 RATIO (0.9-2.4); AST(SGOT) 19 U/L (15-37); Alanine Aminotransfer ALT/SGPT 19 U/L (13-56); Albumin, Serum 3.9 g/dL (3.2-5.0); Alkaline Phosphatase 68 U/L (45-117); Anion Gap 4 (5-15); BUN 16 mg/dL (7-18); BUN/Creat Ratio 22.3 RATIO (10-20); Calcium,Total 8.9 mg/dL (8.5-10.1); Chloride 111 mmol/L (98-107); Creatinine, Serum 0.72 mg/dL (0.55-1.02); EST Glomerular Filtration Rate 90 mL/min (>60); Est Glom Filt Rate - Afr Amer 109 mL/min (>60); Globulin 2.9 g/dL (2.2-4.2); Glucose 97 mg/dL (74-106); Protein, Total 6.8 g/dL (6.4-8.2); Sodium Level 140 mmol/L (136-145)
== END ==
PROVIDERS: PCP Physician Assistant; Referring Provider Internal Medicine Rheumatology; Visit Provider Internal Medicine Rheumatology
DX: M06.09 Rheumatoid arthritis without rheumatoid factor, multiple sites (principal); M18.11 Unilateral primary osteoarthritis of first carpometacarpal joint, right hand; G56.01 Carpal tunnel syndrome, right upper limb; M47.892 Other spondylosis, cervical region; G43.909 Migraine, unspecified, not intractable, without status migrainosus; J45.909 Unspecified asthma, uncomplicated; Z79.899 Other long term (current) drug therapy
CPT/HCPCS: 36415; 80053; 85025

== ENCOUNTER → 2020-04-07 11:08 | Outpatient (CLI) | payer BC, SELFPAY ==
[2019-07-30 11:35] VITALS: BMI 19.6
[2020-04-07 12:47] LABS: Absolute Neutrophil Count 4.5 X10^3/uL (2.0-7.7); Basophil# 0.02 X10^3/uL; Basophil% 0.3 % (0-1); Eosinophil# 0.01 X10^3/uL; Eosinophils% 0.2 % (0-5); Hematocrit 44.7 % (37-47); Hemoglobin 14.4 g/dL (12.0-15.0); Lymphocyte % 15.3 % (19-41); Mean Corp Hgb Conc 32.2 g/dL (32-36); Mean Corpuscular Hgb 32.1 pg (27.0-32.0); Mean Corpuscular Volume 99.8 fL (81-99); Mean Platelet Vol. 9.2 fl (6.2-12.0); Monocyte# 0.42 X10^3/uL; Monocyte% 7.1 % (0-10); NRBC Flagged by Analyzer 0 % (0-5); Neutrophil # 4.52 X10^3/uL (2.7-7.7); Neutrophil % 76.6 % (47-70); Platelet Count 265 K/mm3 (150-450); RBC Distribution Width CV 14.6 % (11.6-14.6); RBC Distribution Width SD 53.1 fl (35.1-43.9); Red Blood Count 4.48 M/mm3 (4.2-5.4); White Blood Count 5.9 K/mm3 (4.4-11.0)
[2020-04-07 13:19] LABS: ALB/GLOB Ratio 1.3 RATIO (0.9-2.4); AST(SGOT) 25 U/L (15-37); Alanine Aminotransfer ALT/SGPT 28 U/L (13-56); Albumin, Serum 4.1 g/dL (3.2-5.0); Alkaline Phosphatase 65 U/L (45-117); Anion Gap 6 (5-15); BUN 13 mg/dL (7-18); BUN/Creat Ratio 17.8 RATIO (10-20); Chloride 105 mmol/L (98-107); Creatinine, Serum 0.73 mg/dL (0.55-1.02); EST Glomerular Filtration Rate 88 mL/min (>60); Est Glom Filt Rate - Afr Amer 106 mL/min (>60); Globulin 3.1 g/dL (2.2-4.2); Glucose 92 mg/dL (74-106); Potassium 4.6 mmol/L (3.5-5.1); Protein, Total 7.2 g/dL (6.4-8.2); Sodium Level 140 mmol/L (136-145)
== END ==
PROVIDERS: PCP Physician Assistant; Referring Provider Internal Medicine Rheumatology; Visit Provider Internal Medicine Rheumatology
DX: M06.09 Rheumatoid arthritis without rheumatoid factor, multiple sites (principal); M18.11 Unilateral primary osteoarthritis of first carpometacarpal joint, right hand; G56.01 Carpal tunnel syndrome, right upper limb; M47.892 Other spondylosis, cervical region; G43.909 Migraine, unspecified, not intractable, without status migrainosus; J45.909 Unspecified asthma, uncomplicated; Z79.899 Other long term (current) drug therapy
CPT/HCPCS: 36415; 80053; 85025

== ENCOUNTER → 2020-06-24 09:08 | Outpatient (CLI) | payer BC, SELFPAY ==
[2019-07-30 11:35] VITALS: BMI 19.6
[2020-06-24 10:10] LABS: Absolute Lymphocyte Count 2.63 X10^3/uL (0.83-4.51); Basophil# 0.03 X10^3/uL; Basophil% 0.4 % (0-1); Eosinophil# 0.08 X10^3/uL; Eosinophils% 0.9 % (0-5); Hematocrit 44.6 % (37-47); Hemoglobin 14.4 g/dL (12.0-15.0); Lymphocyte # 2.63 X10^3/ul (4.0); Lymphocyte % 31.1 % (19-41); Mean Corp Hgb Conc 32.3 g/dL (32-36); Mean Corpuscular Volume 99.1 fL (81-99); Mean Platelet Vol. 9.2 fl (6.2-12.0); Monocyte# 0.72 X10^3/uL; Monocyte% 8.5 % (0-10); NRBC Flagged by Analyzer 0 % (0-5); Neutrophil # 4.96 X10^3/uL (2.7-7.7); Neutrophil % 58.7 % (47-70); Platelet Count 257 K/mm3 (150-450); RBC Distribution Width CV 14.3 % (11.6-14.6); RBC Distribution Width SD 51.9 fl (35.1-43.9); White Blood Count 8.5 K/mm3 (4.4-11.0)
[2020-06-24 10:35] LABS: ALB/GLOB Ratio 1.3 RATIO (0.9-2.4); AST(SGOT) 16 U/L (15-37); Alanine Aminotransfer ALT/SGPT 24 U/L (13-56); Albumin, Serum 3.7 g/dL (3.2-5.0); Alkaline Phosphatase 66 U/L (45-117); Anion Gap 4 (5-15); BUN 14 mg/dL (7-18); BUN/Creat Ratio 19.1 RATIO (10-20); Calcium,Total 9.4 mg/dL (8.5-10.1); Chloride 106 mmol/L (98-107); Creatinine, Serum 0.73 mg/dL (0.55-1.02); EST Glomerular Filtration Rate 87 mL/min (>60); Est Glom Filt Rate - Afr Amer 106 mL/min (>60); Globulin 2.9 g/dL (2.2-4.2); Glucose 97 mg/dL (74-106); Protein, Total 6.6 g/dL (6.4-8.2); Sodium Level 139 mmol/L (136-145)
== END ==
PROVIDERS: PCP Physician Assistant; Referring Provider Internal Medicine Rheumatology; Visit Provider Internal Medicine Rheumatology
DX: M06.09 Rheumatoid arthritis without rheumatoid factor, multiple sites (principal); M18.11 Unilateral primary osteoarthritis of first carpometacarpal joint, right hand; G56.01 Carpal tunnel syndrome, right upper limb; M47.892 Other spondylosis, cervical region; G43.909 Migraine, unspecified, not intractable, without status migrainosus; J45.909 Unspecified asthma, uncomplicated; Z79.899 Other long term (current) drug therapy
CPT/HCPCS: 36415; 80053; 85025

== ENCOUNTER → 2020-09-22 11:19 | Outpatient (CLI) | payer BC, SELFPAY ==
[2019-07-30 11:35] VITALS: BMI 19.6
[2020-09-22 12:52] LABS: Absolute Lymphocyte Count 1.49 X10^3/uL (0.83-4.51); Absolute Neutrophil Count 5.8 X10^3/uL (2.0-7.7); Basophil# 0.01 X10^3/uL; Basophil% 0.1 % (0-1); Eosinophil# 0.03 X10^3/uL; Eosinophils% 0.4 % (0-5); Hemoglobin 14.1 g/dL (12.0-15.0); Lymphocyte # 1.49 X10^3/ul (0.83-4.51); Lymphocyte % 19.3 % (19-41); Mean Corp Hgb Conc 32.8 g/dL (32-36); Mean Corpuscular Volume 97.5 fL (81-99); Mean Platelet Vol. 9.3 fl (6.2-12.0); Monocyte# 0.31 X10^3/uL; NRBC Flagged by Analyzer 0 % (0-5); Neutrophil # 5.83 X10^3/uL (2.7-7.7); Neutrophil % 75.7 % (47-70); Platelet Count 291 K/mm3 (150-450); RBC Distribution Width CV 15.4 % (11.6-14.6); RBC Distribution Width SD 54.7 fl (35.1-43.9); Red Blood Count 4.41 M/mm3 (4.2-5.4); White Blood Count 7.7 K/mm3 (4.4-11.0)
[2020-09-22 13:16] LABS: ALB/GLOB Ratio 1.4 RATIO (0.9-2.4); AST(SGOT) 21 U/L (15-37); Alanine Aminotransfer ALT/SGPT 21 U/L (13-56); Albumin, Serum 3.9 g/dL (3.2-5.0); Alkaline Phosphatase 55 U/L (45-117); Anion Gap 4 (5-15); BUN 12 mg/dL (7-18); BUN/Creat Ratio 17.2 RATIO (10-20); Calcium,Total 9.2 mg/dL (8.5-10.1); Chloride 106 mmol/L (98-107); EST Glomerular Filtration Rate 93 mL/min (>60); Est Glom Filt Rate - Afr Amer 112 mL/min (>60); Globulin 2.8 g/dL (2.2-4.2); Glucose 102 mg/dL (74-106); Potassium 4.4 mmol/L (3.5-5.1); Protein, Total 6.7 g/dL (6.4-8.2); Sodium Level 140 mmol/L (136-145)
== END ==
PROVIDERS: PCP Family Medicine; Referring Provider Internal Medicine Rheumatology; Visit Provider Internal Medicine Rheumatology
DX: M06.09 Rheumatoid arthritis without rheumatoid factor, multiple sites (principal); M18.11 Unilateral primary osteoarthritis of first carpometacarpal joint, right hand; G56.01 Carpal tunnel syndrome, right upper limb; M47.892 Other spondylosis, cervical region; G43.909 Migraine, unspecified, not intractable, without status migrainosus; J45.909 Unspecified asthma, uncomplicated; Z79.899 Other long term (current) drug therapy
CPT/HCPCS: 36415; 80053; 85025

== ENCOUNTER → 2020-12-09 11:41 | Outpatient (CLI) | payer BC, SELFPAY ==
[2020-12-09 15:24] LABS: Absolute Lymphocyte Count 2.29 X10^3/uL (0.83-4.51); Absolute Neutrophil Count 6.2 X10^3/uL (2.0-7.7); Basophil# 0.02 X10^3/uL; Basophil% 0.2 % (0-1); Eosinophil# 0.05 X10^3/uL; Eosinophils% 0.5 % (0-5); Hematocrit 42.6 % (37-47); Lymphocyte # 2.29 X10^3/ul (0.83-4.51); Lymphocyte % 24.9 % (19-41); Mean Corp Hgb Conc 32.9 g/dL (32-36); Mean Corpuscular Hgb 32.9 pg (27.0-32.0); Mean Corpuscular Volume 100.2 fL (81-99); Mean Platelet Vol. 9.9 fl (6.2-12.0); Monocyte# 0.62 X10^3/uL; Monocyte% 6.7 % (0-10); NRBC Flagged by Analyzer 0 % (0-5); Neutrophil # 6.17 X10^3/uL (2.7-7.7); Neutrophil % 67.3 % (47-70); Platelet Count 285 K/mm3 (150-450); RBC Distribution Width CV 14.5 % (11.6-14.6); RBC Distribution Width SD 52.9 fl (35.1-43.9); Red Blood Count 4.25 M/mm3 (4.2-5.4); White Blood Count 9.2 K/mm3 (4.4-11.0)
[2020-12-09 15:56] LABS: ALB/GLOB Ratio 1.2 RATIO (0.9-2.4); AST(SGOT) 18 U/L (15-37); Alanine Aminotransfer ALT/SGPT 23 U/L (13-56); Albumin, Serum 3.6 g/dL (3.2-5.0); Alkaline Phosphatase 61 U/L (45-117); Anion Gap 7 (5-15); BUN 13 mg/dL (7-18); BUN/Creat Ratio 16.7 RATIO (10-20); Calcium,Total 9.5 mg/dL (8.5-10.1); Chloride 102 mmol/L (98-107); Creatinine, Serum 0.78 mg/dL (0.55-1.02); EST Glomerular Filtration Rate 82 mL/min (>60); Est Glom Filt Rate - Afr Amer 99 mL/min (>60); Globulin 3.1 g/dL (2.2-4.2); Glucose 102 mg/dL (74-106); Potassium 3.9 mmol/L (3.5-5.1); Protein, Total 6.7 g/dL (6.4-8.2); Sodium Level 141 mmol/L (136-145)
== END ==
PROVIDERS: PCP Family Medicine; Referring Provider Internal Medicine Rheumatology; Visit Provider Internal Medicine Rheumatology
DX: M06.09 Rheumatoid arthritis without rheumatoid factor, multiple sites (principal); M18.11 Unilateral primary osteoarthritis of first carpometacarpal joint, right hand; G56.01 Carpal tunnel syndrome, right upper limb; M47.892 Other spondylosis, cervical region; G43.909 Migraine, unspecified, not intractable, without status migrainosus; J45.909 Unspecified asthma, uncomplicated; Z79.899 Other long term (current) drug therapy
CPT/HCPCS: 36415; 80053; 85025

== ENCOUNTER → 2021-03-11 07:54 | Outpatient (CLI) | payer BC, SELFPAY ==
[2021-03-11 10:13] LABS: Absolute Lymphocyte Count 1.93 X10^3/uL (0.83-4.51); Absolute Neutrophil Count 6.9 X10^3/uL (2.0-7.7); Basophil# 0.03 X10^3/uL; Basophil% 0.3 % (0-1); Eosinophil# 0.03 X10^3/uL; Eosinophils% 0.3 % (0-5); Hematocrit 42.9 % (37-47); Hemoglobin 14.3 g/dL (12.0-15.0); Lymphocyte # 1.93 X10^3/ul (0.83-4.51); Lymphocyte % 20.5 % (19-41); Mean Corp Hgb Conc 33.3 g/dL (32-36); Mean Corpuscular Hgb 32.5 pg (27.0-32.0); Mean Corpuscular Volume 97.5 fL (81-99); Mean Platelet Vol. 9.2 fl (6.2-12.0); Monocyte# 0.47 X10^3/uL; NRBC Flagged by Analyzer 0 % (0-5); Neutrophil # 6.92 X10^3/uL (2.7-7.7); Neutrophil % 73.6 % (47-70); Platelet Count 295 K/mm3 (150-450); RBC Distribution Width CV 14.2 % (11.6-14.6); RBC Distribution Width SD 50.7 fl (35.1-43.9); White Blood Count 9.4 K/mm3 (4.4-11.0)
[2021-03-11 10:37] LABS: ALB/GLOB Ratio 1.2 RATIO (0.9-2.4); AST(SGOT) 17 U/L (15-37); Alanine Aminotransfer ALT/SGPT 27 U/L (13-56); Albumin, Serum 3.8 g/dL (3.2-5.0); Alkaline Phosphatase 64 U/L (45-117); Anion Gap 5 (5-15); BUN 17 mg/dL (7-18); BUN/Creat Ratio 23.3 RATIO (10-20); Calcium,Total 9.5 mg/dL (8.5-10.1); Chloride 106 mmol/L (98-107); Creatinine, Serum 0.73 mg/dL (0.55-1.02); EST Glomerular Filtration Rate 88 mL/min (>60); Est Glom Filt Rate - Afr Amer 106 mL/min (>60); Globulin 3.1 g/dL (2.2-4.2); Glucose 101 mg/dL (74-106); Potassium 4.2 mmol/L (3.5-5.1); Protein, Total 6.9 g/dL (6.4-8.2); Sodium Level 140 mmol/L (136-145)
== END ==
PROVIDERS: PCP Family Medicine; Referring Provider Internal Medicine Rheumatology; Visit Provider Internal Medicine Rheumatology
DX: M06.09 Rheumatoid arthritis without rheumatoid factor, multiple sites (principal); M18.11 Unilateral primary osteoarthritis of first carpometacarpal joint, right hand; G56.01 Carpal tunnel syndrome, right upper limb; M47.892 Other spondylosis, cervical region; G43.909 Migraine, unspecified, not intractable, without status migrainosus; J45.909 Unspecified asthma, uncomplicated; Z79.899 Other long term (current) drug therapy
CPT/HCPCS: 36415; 80053; 85025

== ENCOUNTER 2021-06-09 16:30 | Outpatient (CLI) | payer OTHER, SELFPAY ==
[2021-06-09 17:49] LABS: Absolute Lymphocyte Count 3.06 X10^3/uL (0.83-4.51); Absolute Neutrophil Count 4.1 X10^3/uL (2.0-7.7); Basophil# 0.01 X10^3/uL; Basophil% 0.1 % (0-1); Eosinophil# 0.05 X10^3/uL; Eosinophils% 0.7 % (0-5); Hematocrit 39.9 % (37-47); Hemoglobin 13.4 g/dL (12.0-15.0); Lymphocyte # 3.06 X10^3/ul (0.83-4.51); Lymphocyte % 39.8 % (19-41); Mean Corp Hgb Conc 33.6 g/dL (32-36); Mean Corpuscular Hgb 32.2 pg (27.0-32.0); Mean Corpuscular Volume 95.9 fL (81-99); Mean Platelet Vol. 9.2 fl (6.2-12.0); Monocyte% 6.5 % (0-10); NRBC Flagged by Analyzer 0 % (0-5); Neutrophil # 4.05 X10^3/uL (2.7-7.7); Neutrophil % 52.6 % (47-70); Platelet Count 246 K/mm3 (150-450); RBC Distribution Width CV 14.5 % (11.6-14.6); RBC Distribution Width SD 50.8 fl (35.1-43.9); Red Blood Count 4.16 M/mm3 (4.2-5.4); White Blood Count 7.7 K/mm3 (4.4-11.0)
[2021-06-09 18:12] LABS: ALB/GLOB Ratio 1.4 RATIO (0.9-2.4); AST(SGOT) 31 U/L (15-37); Alanine Aminotransfer ALT/SGPT 35 U/L (13-56); Alkaline Phosphatase 52 U/L (45-117); Anion Gap 4 (5-15); BUN 13 mg/dL (7-18); BUN/Creat Ratio 18.1 RATIO (10-20); Calcium,Total 9.1 mg/dL (8.5-10.1); Chloride 104 mmol/L (98-107); Creatinine, Serum 0.72 mg/dL (0.55-1.02); EST Glomerular Filtration Rate 89 mL/min (>60); Est Glom Filt Rate - Afr Amer 108 mL/min (>60); Globulin 2.8 g/dL (2.2-4.2); Glucose 95 mg/dL (74-106); Potassium 4.2 mmol/L (3.5-5.1); Protein, Total 6.8 g/dL (6.4-8.2); Sodium Level 139 mmol/L (136-145)
== END 2021-06-09 23:59 | disposition home or self-care (01) ==
LOC: MTLAB 16:33
PROVIDERS: PCP Family Medicine; Referring Provider Internal Medicine Rheumatology; Visit Provider Internal Medicine Rheumatology
DX: M06.09 Rheumatoid arthritis without rheumatoid factor, multiple sites (principal); M18.11 Unilateral primary osteoarthritis of first carpometacarpal joint, right hand; G56.01 Carpal tunnel syndrome, right upper limb; M47.892 Other spondylosis, cervical region; G43.909 Migraine, unspecified, not intractable, without status migrainosus; J45.909 Unspecified asthma, uncomplicated; Z79.899 Other long term (current) drug therapy
CPT/HCPCS: 36415; 80053; 85025

== ENCOUNTER 2021-06-16 07:52 | Outpatient (CLI) | payer OTHER, SELFPAY ==
[2021-06-18 20:08] LABS: QNTFERON TB Mitogen Value > 10.00 IU/mL (.); QNTFERON TB Nil Value 0.02 IU/mL (.); QNTFERON TB1+ Ag Value 0.02 IU/mL (.); QNTFERON TB2+ Ag Value 0.03 IU/mL (.)
[2021-06-19 13:38] LABS: QNTIFERON TB Positive Criteria Negative (Negative)
== END 2021-06-16 23:59 | disposition home or self-care (01) ==
LOC: MTLAB 07:53
PROVIDERS: PCP Family Medicine; Referring Provider Internal Medicine Rheumatology; Visit Provider Internal Medicine Rheumatology
DX: M06.09 Rheumatoid arthritis without rheumatoid factor, multiple sites (principal); M18.11 Unilateral primary osteoarthritis of first carpometacarpal joint, right hand; G56.01 Carpal tunnel syndrome, right upper limb; M47.892 Other spondylosis, cervical region; G43.909 Migraine, unspecified, not intractable, without status migrainosus; J45.909 Unspecified asthma, uncomplicated; Z79.899 Other long term (current) drug therapy
CPT/HCPCS: 36415; 86480

== ENCOUNTER → 2021-09-08 | Outpatient (CLI) | payer OTHER, SELFPAY ==
[2021-09-08 18:14] LABS: Absolute Lymphocyte Count 2.67 X10^3/uL (0.83-4.51); Absolute Neutrophil Count 4.2 X10^3/uL (2.0-7.7); Basophil# 0.02 X10^3/uL; Basophil% 0.3 % (0-1); Eosinophil# 0.06 X10^3/uL; Eosinophils% 0.8 % (0-5); Hematocrit 38.7 % (37-47); Hemoglobin 12.9 g/dL (12.0-15.0); Lymphocyte # 2.67 X10^3/ul (0.83-4.51); Lymphocyte % 34.9 % (19-41); Mean Corp Hgb Conc 33.3 g/dL (32-36); Mean Corpuscular Hgb 32.7 pg (27.0-32.0); Mean Corpuscular Volume 98.2 fL (81-99); Mean Platelet Vol. 9.6 fl (6.2-12.0); Monocyte# 0.66 X10^3/uL; Monocyte% 8.6 % (0-10); NRBC Flagged by Analyzer 0 % (0-5); Neutrophil # 4.23 X10^3/uL (2.7-7.7); Neutrophil % 55.1 % (47-70); Platelet Count 256 K/mm3 (150-450); RBC Distribution Width CV 13.4 % (11.6-14.6); RBC Distribution Width SD 48.7 fl (35.1-43.9); Red Blood Count 3.94 M/mm3 (4.2-5.4); White Blood Count 7.7 K/mm3 (4.4-11.0)
[2021-09-08 18:25] LABS: ALB/GLOB Ratio 1.4 RATIO (0.9-2.4); AST(SGOT) 24 U/L (15-37); Alanine Aminotransfer ALT/SGPT 24 U/L (13-56); Albumin, Serum 3.8 g/dL (3.2-5.0); Alkaline Phosphatase 61 U/L (45-117); Anion Gap 9 (5-15); BUN 17 mg/dL (7-18); BUN/Creat Ratio 24.3 RATIO (10-20); Calcium,Total 9.2 mg/dL (8.5-10.1); Chloride 103 mmol/L (98-107); EST Glomerular Filtration Rate 92 mL/min (>60); Est Glom Filt Rate - Afr Amer 111 mL/min (>60); Globulin 2.8 g/dL (2.2-4.2); Glucose 86 mg/dL (74-106); Potassium 3.9 mmol/L (3.5-5.1); Protein, Total 6.6 g/dL (6.4-8.2); Sodium Level 140 mmol/L (136-145)
== END | disposition home or self-care (01) ==
LOC: MTLAB 16:38
PROVIDERS: PCP Family Medicine; Referring Provider Internal Medicine Rheumatology; Visit Provider Internal Medicine Rheumatology
DX: M06.09 Rheumatoid arthritis without rheumatoid factor, multiple sites (principal); M18.11 Unilateral primary osteoarthritis of first carpometacarpal joint, right hand; G56.01 Carpal tunnel syndrome, right upper limb; M47.892 Other spondylosis, cervical region; G43.909 Migraine, unspecified, not intractable, without status migrainosus; J45.909 Unspecified asthma, uncomplicated; Z79.899 Other long term (current) drug therapy
CPT/HCPCS: 36415; 80053; 85025

== ENCOUNTER → 2021-12-11 | Outpatient (CLI) | payer OTHER, SELFPAY ==
[2021-12-11 15:12] LABS: Absolute Neutrophil Count 4.4 X10^3/uL (2.0-7.7); Basophil# 0.01 X10^3/uL; Basophil% 0.2 % (0-1); Eosinophil# 0.01 X10^3/uL; Eosinophils% 0.2 % (0-5); Hematocrit 40.8 % (37-47); Hemoglobin 13.4 g/dL (12.0-15.0); Lymphocyte % 23.5 % (19-41); Mean Corp Hgb Conc 32.8 g/dL (32-36); Mean Corpuscular Volume 97.4 fL (81-99); Mean Platelet Vol. 9.5 fl (6.2-12.0); Monocyte# 0.44 X10^3/uL; Monocyte% 6.9 % (0-10); NRBC Flagged by Analyzer 0 % (0-5); Neutrophil # 4.39 X10^3/uL (2.7-7.7); Neutrophil % 68.9 % (47-70); Platelet Count 258 K/mm3 (150-450); RBC Distribution Width CV 14.4 % (11.6-14.6); RBC Distribution Width SD 50.8 fl (35.1-43.9); Red Blood Count 4.19 M/mm3 (4.2-5.4); White Blood Count 6.4 K/mm3 (4.4-11.0)
[2021-12-11 15:24] LABS: ALB/GLOB Ratio 1.2 RATIO (0.9-2.4); AST(SGOT) 23 U/L (15-37); Alanine Aminotransfer ALT/SGPT 29 U/L (13-56); Albumin, Serum 3.8 g/dL (3.2-5.0); Alkaline Phosphatase 51 U/L (45-117); Anion Gap 6 (5-15); BUN 9 mg/dL (7-18); BUN/Creat Ratio 12.9 RATIO (10-20); Calcium,Total 9.3 mg/dL (8.5-10.1); Chloride 104 mmol/L (98-107); EST Glomerular Filtration Rate 93 mL/min (>60); Est Glom Filt Rate - Afr Amer 112 mL/min (>60); Globulin 3.1 g/dL (2.2-4.2); Glucose 93 mg/dL (74-106); Protein, Total 6.9 g/dL (6.4-8.2); Sodium Level 140 mmol/L (136-145)
== END | disposition home or self-care (01) ==
LOC: MTLAB 11:13
PROVIDERS: PCP Family Medicine; Referring Provider Internal Medicine Rheumatology; Visit Provider Internal Medicine Rheumatology
DX: M06.09 Rheumatoid arthritis without rheumatoid factor, multiple sites (principal); M18.11 Unilateral primary osteoarthritis of first carpometacarpal joint, right hand; G56.01 Carpal tunnel syndrome, right upper limb; M47.892 Other spondylosis, cervical region; G43.909 Migraine, unspecified, not intractable, without status migrainosus; J45.909 Unspecified asthma, uncomplicated; Z79.899 Other long term (current) drug therapy
CPT/HCPCS: 36415; 80053; 85025

== ENCOUNTER → 2022-02-19 | Outpatient (CLI) | payer OTHER, SELFPAY ==
[2022-02-19 17:36] LABS: Absolute Lymphocyte Count 1.85 X10^3/uL (0.83-4.51); Absolute Neutrophil Count 5.4 X10^3/uL (2.0-7.7); Basophil# 0.01 X10^3/uL; Basophil% 0.1 % (0-1); Eosinophil# 0.04 X10^3/uL; Eosinophils% 0.5 % (0-5); Hematocrit 41.6 % (37-47); Hemoglobin 13.7 g/dL (12.0-15.0); Lymphocyte # 1.85 X10^3/ul (0.83-4.51); Lymphocyte % 22.8 % (19-41); Mean Corp Hgb Conc 32.9 g/dL (32-36); Mean Corpuscular Hgb 33.3 pg (27.0-32.0); Mean Corpuscular Volume 101.2 fL (81-99); Mean Platelet Vol. 9.1 fl (6.2-12.0); Monocyte# 0.78 X10^3/uL; Monocyte% 9.6 % (0-10); NRBC Flagged by Analyzer 0 % (0-5); Neutrophil # 5.41 X10^3/uL (2.7-7.7); Neutrophil % 66.5 % (47-70); Platelet Count 305 K/mm3 (150-450); RBC Distribution Width CV 14.4 % (11.6-14.6); RBC Distribution Width SD 52.9 fl (35.1-43.9); Red Blood Count 4.11 M/mm3 (4.2-5.4); White Blood Count 8.1 K/mm3 (4.4-11.0)
[2022-02-19 17:57] LABS: ALB/GLOB Ratio 1.5 RATIO (0.9-2.4); AST(SGOT) 21 U/L (15-37); Alanine Aminotransfer ALT/SGPT 29 U/L (13-56); Albumin, Serum 3.8 g/dL (3.2-5.0); Alkaline Phosphatase 71 U/L (45-117); Anion Gap 4 (5-15); BUN 11 mg/dL (7-18); BUN/Creat Ratio 14.9 RATIO (10-20); Calcium,Total 9.5 mg/dL (8.5-10.1); Chloride 102 mmol/L (98-107); Creatinine, Serum 0.74 mg/dL (0.55-1.02); EST Glomerular Filtration Rate 86 mL/min (>60); Est Glom Filt Rate - Afr Amer 104 mL/min (>60); Globulin 2.6 g/dL (2.2-4.2); Glucose 99 mg/dL (74-106); Protein, Total 6.4 g/dL (6.4-8.2); Sodium Level 139 mmol/L (136-145)
== END | disposition home or self-care (01) ==
LOC: MTLAB 15:38
PROVIDERS: PCP Family Medicine; Referring Provider Internal Medicine Rheumatology; Visit Provider Internal Medicine Rheumatology
DX: M06.09 Rheumatoid arthritis without rheumatoid factor, multiple sites (principal); M18.11 Unilateral primary osteoarthritis of first carpometacarpal joint, right hand; G56.01 Carpal tunnel syndrome, right upper limb; M47.892 Other spondylosis, cervical region; G43.909 Migraine, unspecified, not intractable, without status migrainosus; J45.909 Unspecified asthma, uncomplicated; Z79.899 Other long term (current) drug therapy
CPT/HCPCS: 36415; 80053; 85025

== ENCOUNTER → 2022-05-12 | Outpatient (CLI) | payer OTHER, SELFPAY ==
[2022-05-12 10:13] LABS: Absolute Lymphocyte Count 1.32 X10^3/uL (0.83-4.51); Absolute Neutrophil Count 6.8 X10^3/uL (2.0-7.7); Basophil# 0.01 X10^3/uL; Basophil% 0.1 % (0-1); Hematocrit 42.8 % (37-47); Hemoglobin 13.9 g/dL (12.0-15.0); Lymphocyte # 1.32 X10^3/ul (0.83-4.51); Lymphocyte % 15.4 % (19-41); Mean Corp Hgb Conc 32.5 g/dL (32-36); Mean Corpuscular Hgb 32.1 pg (27.0-32.0); Mean Corpuscular Volume 98.8 fL (81-99); Mean Platelet Vol. 9.4 fl (6.2-12.0); Monocyte# 0.42 X10^3/uL; Monocyte% 4.9 % (0-10); NRBC Flagged by Analyzer 0 % (0-5); Neutrophil # 6.76 X10^3/uL (2.7-7.7); Neutrophil % 78.7 % (47-70); Platelet Count 302 K/mm3 (150-450); RBC Distribution Width CV 13.5 % (11.6-14.6); Red Blood Count 4.33 M/mm3 (4.2-5.4); White Blood Count 8.6 K/mm3 (4.4-11.0)
[2022-05-12 10:29] LABS: ALB/GLOB Ratio 1.3 RATIO (0.9-2.4); AST(SGOT) 21 U/L (15-37); Alanine Aminotransfer ALT/SGPT 28 U/L (13-56); Albumin, Serum 3.9 g/dL (3.2-5.0); Alkaline Phosphatase 53 U/L (45-117); Anion Gap 6 (5-15); BUN 13 mg/dL (7-18); BUN/Creat Ratio 17.7 RATIO (10-20); Calcium,Total 9.2 mg/dL (8.5-10.1); Chloride 104 mmol/L (98-107); Creatinine, Serum 0.73 mg/dL (0.55-1.02); EST Glomerular Filtration Rate 87 mL/min (>60); Est Glom Filt Rate - Afr Amer 105 mL/min (>60); Globulin 3.1 g/dL (2.2-4.2); Glucose 116 mg/dL (74-106); Potassium 4.3 mmol/L (3.5-5.1); Sodium Level 140 mmol/L (136-145)
== END | disposition home or self-care (01) ==
LOC: MTLAB 08:23
PROVIDERS: PCP Family Medicine; Referring Provider Internal Medicine Rheumatology; Visit Provider Internal Medicine Rheumatology
DX: M06.09 Rheumatoid arthritis without rheumatoid factor, multiple sites (principal); Z79.899 Other long term (current) drug therapy; M18.11 Unilateral primary osteoarthritis of first carpometacarpal joint, right hand; G56.01 Carpal tunnel syndrome, right upper limb; M47.892 Other spondylosis, cervical region; G43.909 Migraine, unspecified, not intractable, without status migrainosus; J45.909 Unspecified asthma, uncomplicated
CPT/HCPCS: 36415; 80053; 85025

== ENCOUNTER → 2022-08-20 | Outpatient (CLI) | payer OTHER, SELFPAY ==
[2022-08-20 12:26] LABS: Absolute Lymphocyte Count 1.15 X10^3/uL (0.83-4.51); Basophil# 0.02 X10^3/uL; Basophil% 0.3 % (0-1); Eosinophil# 0.01 X10^3/uL; Eosinophils% 0.1 % (0-5); Hematocrit 42.4 % (37-47); Hemoglobin 13.8 g/dL (12.0-15.0); Lymphocyte # 1.15 X10^3/ul (0.83-4.51); Lymphocyte % 17.2 % (19-41); Mean Corp Hgb Conc 32.5 g/dL (32-36); Mean Corpuscular Hgb 31.9 pg (27.0-32.0); Mean Corpuscular Volume 98.1 fL (81-99); Mean Platelet Vol. 9.4 fl (6.2-12.0); Monocyte# 0.43 X10^3/uL; Monocyte% 6.4 % (0-10); NRBC Flagged by Analyzer 0 % (0-5); Neutrophil # 5.04 X10^3/uL (2.7-7.7); Neutrophil % 75.7 % (47-70); Platelet Count 267 K/mm3 (150-450); RBC Distribution Width CV 13.6 % (11.6-14.6); RBC Distribution Width SD 48.7 fl (35.1-43.9); Red Blood Count 4.32 M/mm3 (4.2-5.4); White Blood Count 6.7 K/mm3 (4.4-11.0)
[2022-08-20 13:40] LABS: ALB/GLOB Ratio 1.3 RATIO (0.9-2.4); AST(SGOT) 25 U/L (15-37); Alanine Aminotransfer ALT/SGPT 31 U/L (13-56); Albumin, Serum 3.9 g/dL (3.2-5.0); Alkaline Phosphatase 58 U/L (45-117); Anion Gap 6 (5-15); BUN 13 mg/dL (7-18); BUN/Creat Ratio 16.6 RATIO (10-20); Calcium,Total 10.1 mg/dL (8.5-10.1); Chloride 106 mmol/L (98-107); Creatinine, Serum 0.78 mg/dL (0.55-1.02); EST Glomerular Filtration Rate 81 mL/min (>60); Est Glom Filt Rate - Afr Amer 97 mL/min (>60); Glucose 102 mg/dL (74-106); Potassium 4.3 mmol/L (3.5-5.1); Protein, Total 6.9 g/dL (6.4-8.2); Sodium Level 141 mmol/L (136-145)
== END | disposition home or self-care (01) ==
LOC: MTLAB 10:13
PROVIDERS: PCP Family Medicine; Referring Provider Internal Medicine Rheumatology; Visit Provider Internal Medicine Rheumatology
DX: M06.00 Rheumatoid arthritis without rheumatoid factor, unspecified site (principal); Z79.899 Other long term (current) drug therapy
CPT/HCPCS: 36415; 80053; 85025

== ENCOUNTER → 2022-11-24 | Outpatient (CLI) | payer OTHER, SELFPAY ==
[2022-11-24 17:32] LABS: Absolute Lymphocyte Count 1.29 X10^3/uL (0.83-4.51); Absolute Neutrophil Count 5.6 X10^3/uL (2.0-7.7); Basophil# 0.01 X10^3/uL; Basophil% 0.1 % (0-1); Eosinophil# 0.01 X10^3/uL; Eosinophils% 0.1 % (0-5); Hematocrit 38.7 % (37-47); Hemoglobin 12.5 g/dL (12.0-15.0); Lymphocyte # 1.29 X10^3/ul (0.83-4.51); Lymphocyte % 17.6 % (19-41); Mean Corp Hgb Conc 32.3 g/dL (32-36); Mean Corpuscular Hgb 31.7 pg (27.0-32.0); Mean Corpuscular Volume 98.2 fL (81-99); Mean Platelet Vol. 9.5 fl (6.2-12.0); Monocyte# 0.43 X10^3/uL; Monocyte% 5.9 % (0-10); NRBC Flagged by Analyzer 0 % (0-5); Neutrophil # 5.55 X10^3/uL (2.7-7.7); Platelet Count 262 K/mm3 (150-450); RBC Distribution Width CV 13.2 % (11.6-14.6); RBC Distribution Width SD 47.9 fl (35.1-43.9); Red Blood Count 3.94 M/mm3 (4.2-5.4); White Blood Count 7.3 K/mm3 (4.4-11.0)
[2022-11-24 18:03] LABS: ALB/GLOB Ratio 1.3 RATIO (0.9-2.4); AST(SGOT) 22 U/L (15-37); Alanine Aminotransfer ALT/SGPT 26 U/L (13-56); Albumin, Serum 3.7 g/dL (3.2-5.0); Alkaline Phosphatase 54 U/L (45-117); Anion Gap 4 (5-15); BUN 16 mg/dL (7-18); BUN/Creat Ratio 24.5 RATIO (10-20); Calcium,Total 9.6 mg/dL (8.5-10.1); Chloride 106 mmol/L (98-107); Creatinine, Serum 0.65 mg/dL (0.55-1.02); EST Glomerular Filtration Rate 99 mL/min (>60); Est Glom Filt Rate - Afr Amer 120 mL/min (>60); Globulin 2.8 g/dL (2.2-4.2); Glucose 102 mg/dL (74-106); Potassium 4.2 mmol/L (3.5-5.1); Protein, Total 6.5 g/dL (6.4-8.2); Sodium Level 138 mmol/L (136-145)
== END | disposition home or self-care (01) ==
LOC: MTLAB 16:39
PROVIDERS: PCP Family Medicine; Referring Provider Internal Medicine Rheumatology; Visit Provider Internal Medicine Rheumatology
DX: M06.09 Rheumatoid arthritis without rheumatoid factor, multiple sites (principal); Z79.899 Other long term (current) drug therapy
CPT/HCPCS: 36415; 80053; 85025

== ENCOUNTER → 2023-02-17 | Outpatient (CLI) | payer OTHER, SELFPAY ==
[2023-02-17 17:40] LABS: Absolute Lymphocyte Count 2.73 X10^3/uL (0.83-4.51); Absolute Neutrophil Count 3.4 X10^3/uL (2.0-7.7); Basophil# 0.03 X10^3/uL; Basophil% 0.4 % (0-1); Eosinophil# 0.07 X10^3/uL; Hematocrit 38.9 % (37-47); Hemoglobin 12.5 g/dL (12.0-15.0); Lymphocyte # 2.73 X10^3/ul (0.83-4.51); Lymphocyte % 39.3 % (19-41); Mean Corp Hgb Conc 32.1 g/dL (32-36); Mean Corpuscular Hgb 30.9 pg (27.0-32.0); Mean Platelet Vol. 9.3 fl (6.2-12.0); Monocyte# 0.66 X10^3/uL; Monocyte% 9.5 % (0-10); NRBC Flagged by Analyzer 0 % (0-5); Neutrophil # 3.44 X10^3/uL (2.7-7.7); Neutrophil % 49.5 % (47-70); Platelet Count 289 K/mm3 (150-450); RBC Distribution Width CV 14.1 % (11.6-14.6); RBC Distribution Width SD 49.8 fl (35.1-43.9); Red Blood Count 4.05 M/mm3 (4.2-5.4)
[2023-02-17 18:18] LABS: ALB/GLOB Ratio 1.4 RATIO (0.9-2.4); AST(SGOT) 26 U/L (15-37); Alanine Aminotransfer ALT/SGPT 24 U/L (13-56); Albumin, Serum 3.9 g/dL (3.2-5.0); Alkaline Phosphatase 60 U/L (45-117); Anion Gap 4 (5-15); BUN 14 mg/dL (7-18); BUN/Creat Ratio 16.8 RATIO (10-20); Calcium,Total 8.9 mg/dL (8.5-10.1); Chloride 104 mmol/L (98-107); Creatinine, Serum 0.83 mg/dL (0.55-1.02); EST Glomerular Filtration Rate 75 mL/min (>60); Est Glom Filt Rate - Afr Amer 91 mL/min (>60); Globulin 2.8 g/dL (2.2-4.2); Glucose 93 mg/dL (74-106); Potassium 3.8 mmol/L (3.5-5.1); Protein, Total 6.7 g/dL (6.4-8.2); Sodium Level 138 mmol/L (136-145)
== END | disposition home or self-care (01) ==
LOC: MTLAB 16:31
PROVIDERS: PCP Family Medicine; Referring Provider Internal Medicine Rheumatology; Visit Provider Internal Medicine Rheumatology
DX: M06.09 Rheumatoid arthritis without rheumatoid factor, multiple sites (principal); Z79.899 Other long term (current) drug therapy
CPT/HCPCS: 36415; 80053; 85025

== ENCOUNTER → 2023-05-18 | Outpatient (CLI) | payer OTHER, SELFPAY ==
[2023-05-18 17:38] LABS: Absolute Lymphocyte Count 2.72 X10^3/uL (0.83-4.51); Absolute Neutrophil Count 3.7 X10^3/uL (2.0-7.7); Basophil# 0.02 X10^3/uL; Basophil% 0.3 % (0-1); Eosinophil# 0.05 X10^3/uL; Eosinophils% 0.7 % (0-5); Hematocrit 39.7 % (37-47); Lymphocyte # 2.72 X10^3/ul (0.83-4.51); Mean Corp Hgb Conc 32.7 g/dL (32-36); Mean Corpuscular Hgb 31.1 pg (27.0-32.0); Monocyte# 0.51 X10^3/uL; Monocyte% 7.3 % (0-10); NRBC Flagged by Analyzer 0 % (0-5); Neutrophil # 3.66 X10^3/uL (2.7-7.7); Neutrophil % 52.6 % (47-70); Platelet Count 261 K/mm3 (150-450); RBC Distribution Width CV 13.2 % (11.6-14.6); RBC Distribution Width SD 45.8 fl (35.1-43.9); Red Blood Count 4.18 M/mm3 (4.2-5.4)
[2023-05-18 18:09] LABS: ALB/GLOB Ratio 1.4 RATIO (0.9-2.4); AST(SGOT) 27 U/L (15-37); Alanine Aminotransfer ALT/SGPT 28 U/L (13-56); Alkaline Phosphatase 59 U/L (45-117); Anion Gap 4 (5-15); BUN 11 mg/dL (7-18); BUN/Creat Ratio 14.6 RATIO (10-20); Calcium,Total 9.4 mg/dL (8.5-10.1); Chloride 105 mmol/L (98-107); Creatinine, Serum 0.75 mg/dL (0.55-1.02); EST Glomerular Filtration Rate 84 mL/min (>60); Est Glom Filt Rate - Afr Amer 102 mL/min (>60); Globulin 2.8 g/dL (2.2-4.2); Glucose 88 mg/dL (74-106); Potassium 4.2 mmol/L (3.5-5.1); Protein, Total 6.8 g/dL (6.4-8.2); Sodium Level 138 mmol/L (136-145)
--- OUTSIDE RECORDS SUMMARY | 2023-05-18 20:47 | XMS RPT_ITS | CCD ---
Author Name Unknown Address [email or web address] [facility] [address] [place] [address] Organization [facility] Care Team Providers Care Failure Analysis Technician Name Role Phone SANTINO WALKER Admitting Unavailable SANTINO WALKER Attending Unavailable SANTINO WALKER Primary Care Unavailable Kruger PA-CSolange Primary Care Provider [phone] Kruger PA-CSolange Primary Care Provider [phone] Kruger PA-Solange Salazar Primary Care Provider [phone] Kruger PA-CSolange Emeterio Primary Care Provider [phone] KRUGER, M EMETERIO Primary Care Unavailable KRUGER, M EMETERIO Attending Unavailable KRUGER, M EMETERIO Attending Unavailable KRUGER, M EMETERIO Primary Care Unavailable KRUGER, M EMETERIO Primary Care Unavailable KRUGER, M EMETERIO Referring Unavailable KRUGER, M EMETERIO Primary Care Unavailable KRUGER, M EMETERIO Primary Care Unavailable KRUGER, M EMETERIO Referring Unavailable KRUGER, M EMETERIO Primary Care Unavailable KRUGER, M EMETERIO Attending Unavailable KRUGER, M EMETERIO Primary Care Unavailable KRUGER, M EMETERIO Primary Care Unavailable KRUGER, M EMETERIO Primary Care Unavailable KRUGER, M EMETERIO Referring Unavailable HARPSTER, CARI Attending Unavailable KRUGER, M EMETERIO Primary Care Unavailable HARPSTER, CARI Referring Unavailable KRUGER, M EMETERIO Primary Care Unavailable PAWAN ALEMAN Attending Unavailable KRUGER, M EMETERIO Primary Care Unavailable KRUGER, M EMETERIO Referring Unavailable KRUGER, M EMETERIO Primary Care Unavailable KRUGER, M EMETERIO Attending Unavailable KRUGER, M EMETERIO Primary Care Unavailable KRUGER, M EMETERIO Primary Care Unavailable KRUGER, M EMETERIO Attending Unavailable Allergies Allergy Classification Reported Allergen(s) Allergy Type Date of Onset Reaction(s) Facility (20 sources) Aspirin; Translations: [ASPIRIN] Drug Allergy 3 Other: See Comments [facility] (20 sources) Ciprofloxacin; Translations: [CIPROFLOXACIN] Drug Allergy 4 Rash, Hives [facility] Work Phone: (20 sources) Clindamycin; Translations: [CLINDAMYCIN] Drug Allergy 4 Rash [facility] Work Phone: (20 sources) Erythromycin; Translations: [ERYTHROMYCIN] Drug Allergy 3 Vomiting [facility] (2 sources) Penicillins; Translations: [PENICILLINS] Drug Allergy 3 Other: See Comments [facility] Work Phone: (20 sources) POLYETHYLENE GLYCOL 3350; Translations: [POLYETHYLENE GLYCOL 3350] Drug Allergy 8 Intolerance [facility] Work Phone: (20 sources) Penicillins Drug Allergy 3 Other: See Comments [facility] Work Phone: Medications Current Medications Medication Drug Class(es) Dates Sig (Normalized) Sig (Original) benzonatate 100 mg oral capsule (5 sources) Non-narcotic Antitussive Start: 05-03-2022 End: 05-13-2022 take 2 capsules by mouth three times daily as needed benzonatate (TESSALON PERLE) 100 mg capsule Indications: Flu-like symptoms Take 2 capsules by mouth three times daily as needed for up to 10 days. 60 capsule 0 05/03/2022 05/13/2022 Active Completed/Discontinued Medications Medication Drug Class(es) Dates Sig (Normalized) Sig (Original) 1 ml abatacept 125 mg/ml auto-injector (20 sources) Selective T Cell Costimulation Modulator Start: 10-23-2016 ORENCIA CLICKJECT 125 mg/mL AutoInjector one time a week. 0 10/23/2016 Active Problems Active Problems Problem Classification Problem Date Documented Date Episodic/Chronic Allergic reactions (1 source) Contact dermatitis; Translations: [Unspecified contact dermatitis, unspecified cause] Episodic Asthma (20 sources) Asthma; Translations: [Unspecified asthma, uncomplicated] Onset: 05-21-2013 05-21-2013 Chronic Chronic obstructive pulmonary disease and bronchiectasis (20 sources) Chronic obstructive lung disease co-occurrent with acute bronchitis; Translations: [Chronic obstructive pulmonary disease with (acute) lower respiratory infection] Onset: 04-21-2016 04-21-2016 Chronic Conditions associated with dizziness or vertigo (1 source) Dizziness; Translations: [Dizziness and giddiness] Episodic Endometriosis (20 sources) Endometriosis (clinical); Translations: [Endometriosis, unspecified] Onset: 05-21-2013 05-21-2013 Chronic Gastroduodenal ulcer (except hemorrhage) (20 sources) Peptic ulcer; Translations: [Peptic ulcer, site unspecified, unspecified as acute or chronic, without hemorrhage or perforation] Onset: 03-10-2021 Chronic Headache; including migraine (20 sources) Migraine without aura, not refractory ; Translations: [Migraine without aura, not intractable, without status migrainosus] Onset: 05-21-2013 Chronic Immunizations and screening for infectious disease (4 sources) Contact with and (suspected) exposure to other viral communicable diseases; Translations: [Viral screening status] Onset: 12-13-2019 Episodic Menopausal disorders (20 sources) Menopausal symptom; Translations: [Menopausal and female climacteric states] Onset: 02-27-2013 02-27-2013 Chronic Nonspecific chest pain (1 source) Chest pain; Translations: [Chest pain, unspecified] Episodic Osteoporosis (20 sources) Osteoporosis; Translations: [Age-related osteoporosis without current pathological fracture] Onset: 03-29-2019 Chronic Other connective tissue disease (1 source) Other bursitis of knee, unspecified knee; Translations: [Pes anserine bursitis] Onset: 01-20-2023 Episodic Other endocrine disorders (20 sources) Iatrogenic Nely's disease; 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 Other endocrine disorders (20 sources) Hypocortisolism secondary to another disorder; Translations: [Other adrenocortical insufficiency] Onset: 03-12-2019 03-12-2019 Chronic Other endocrine disorders (1 source) Drug-induced Nely's syndrome; 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)] Onset: 03-10-2021 Chronic Other non-traumatic joint disorders (1 source) Pain in right knee; Translations: [Other acute pain] Episodic Other screening for suspected conditions (not mental disorders or infectious disease) (9 sources) Patient encounter status; Translations: [Encounter for screening for malignant neoplasm of colon] Onset: 07-24-2022 Episodic Other skin disorders (1 source) Pigmented purpuric dermatosis; 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] Onset: 01-20-2023 Episodic Other upper respiratory infections (3 sources) Bacterial sinusitis; Translations: [Chronic sinusitis, unspecified] Onset: 06-01-2022 Chronic Other upper respiratory infections (2 sources) Acute upper respiratory infection; Translations: [Acute upper respiratory infection, unspecified] Episodic Residual codes; unclassified (20 sources) Menopause present; Translations: [Asymptomatic menopausal state] 05-21-2013 Episodic Residual codes; unclassified (1 source) Treatment not available; Translations: [Procedure and treatment not carried out for other reasons] Episodic Residual codes; unclassified (1 source) Influenza-like symptoms; Translations: [Other general symptoms and signs] Episodic Rheumatoid arthritis and related disease (20 sources) Rheumatoid arthritis of multiple joints; Translations: [Rheumatoid arthritis with rheumatoid factor of multiple sites without organ or systems involvement] Onset: 11-27-2018 Chronic Screening and history of mental health and substance abuse codes (1 source) Personal history of nicotine dependence; Translations: [Former tobacco use] Onset: 03-22-2023 Episodic Superficial injury; contusion (1 source) Foreign body in hand; Translations: [Superficial foreign body of right hand, initial encounter] 02-09-2023 Episodic Unclassified (6 sources) Iatrogenic [place]'s disease; Translations: [Iatrogenic Nely's disease] 03-09-2021 Viral infection (1 source) COVID-19; Translations: [Acute upper respiratory infections of unspecified site] Episodic Past or Other Problems Problem Classification Problem Date Documented Date Episodic/Chronic Bacterial infection; unspecified site (1 source) Other specified bacterial agents as the cause of diseases classified elsewhere; Translations: [Bacterial sinusitis] Onset: 06-01-2022 Episodic Other aftercare (20 sources) Long-term current use of systemic steroid; Translations: [[facility] (current) use of systemic steroids] Onset: 04-04-2019 04-04-2019 Episodic Other aftercare (1 source) [facility] (current) use of systemic steroids; Translations: [Current chronic use of systemic steroids] Onset: 04-04-2019 Episodic Other bone disease and musculoskeletal deformities (20 sources) Somatic dysfunction of cervicothoracic region; Translations: [Segmental and somatic dysfunction of cervical region] Onset: 06-20-2018 06-20-2018 Episodic Other circulatory disease (20 sources) Air trapping; Translations: [Other specified symptoms and signs involving the circulatory and respiratory systems] Onset: 04-21-2016 Episodic Other circulatory disease (1 source) Other specified symptoms and signs involving the circulatory and respiratory systems; Translations: [Hyperinflation of lungs] Onset: 02-18-2022 Episodic Other non-traumatic joint disorders (20 sources) Shoulder pain; Translations: [Pain in right shoulder] Onset: 03-11-2014 03-11-2014 Episodic Other non-traumatic joint disorders (7 sources) Pain in right shoulder; Translations: [Pain in joint, shoulder region] Onset: 03-11-2014 03-11-2014 Episodic Results Test Name Value Interpretation Reference Range Facil ity Vital Signs Date Time Vital Sign Value Performing Clinician Faci lity 02-09-2023 11:17-0500 Body temperature 98.49 [degF] Jason Root APRN.CREW MANAGER Work Phone: [facility] 02-09-2023 11:17-0500 Body weight 49.9 kg Jason Root APRN.CREW MANAGER Work Phone: [facility] 02-09-2023 11:17-0500 Diastolic blood pressure 72 mm[Hg] Jason Root PHARMACY CLINICAL COORDINATOR.CREW MANAGER Work Phone: [facility] 02-09-2023 11:17-0500 Heart rate 87 /min Jason Root PHARMACY CLINICAL COORDINATOR.CREW MANAGER Work Phone: [facility] 02-09-2023 11:17-0500 Respiratory rate 18 /min Jason Root APRN.CREW MANAGER Work Phone: [facility] 02-09-2023 11:17-0500 SaO2% (BldA) [Mass fraction] 99 % Jason Root PHARMACY CLINICAL COORDINATOR.CREW MANAGER Work Phone: [facility] 02-09-2023 11:17-0500 Systolic blood pressure 118 mm[Hg] Jason Pendlebury PHARMACY CLINICAL COORDINATOR.CREW MANAGER Work Phone: [facility] 01-25-2023 09:12-0500 Body temperature 97.9 [degF] Ella Leblanc PHARMACY CLINICAL COORDINATOR.CREW MANAGER Work Phone: [facility] 01-25-2023 09:12-0500 Body weight 49.9 kg Ella Leblanc PHARMACY CLINICAL COORDINATOR.CREW MANAGER Work Phone: [facility] 01-25-2023 09:12-0500 Diastolic blood pressure 60 mm[Hg] Ella Leblanc PHARMACY CLINICAL COORDINATOR.CREW MANAGER Work Phone: [facility] 01-25-2023 09:12-0500 Heart rate 68 /min Ella Leblanc PHARMACY CLINICAL COORDINATOR.CREW MANAGER Work Phone: [facility] 01-25-2023 09:12-0500 Respiratory rate 16 /min Ella Leblanc PHARMACY CLINICAL COORDINATOR.CREW MANAGER Work Phone: [facility] 01-25-2023 09:12-0500 SaO2% (BldA) [Mass fraction] 98 % Ella Leblanc PHARMACY CLINICAL COORDINATOR.CREW MANAGER Work Phone: [facility] 01-25-2023 09:12-0500 Systolic blood pressure 110 mm[Hg] Ella Leblanc PHARMACY CLINICAL COORDINATOR.CREW MANAGER Work Phone: [facility] 07-02-2022 15:08-0400 Diastolic blood pressure 62 mm[Hg] NA Kruger PA-C Work Phone: [facility] 07-02-2022 15:08-0400 Heart rate 76 /min NA Kruger PA-C Work Phone: [facility] 07-02-2022 15:08-0400 Respiratory rate 16 /min NA Kruger PA-C Work Phone: [facility] 07-02-2022 15:08-0400 SaO2% (BldA) [Mass fraction] 97 % NA Kruger PA-C Work Phone: [facility] 07-02-2022 15:08-0400 Systolic blood pressure 124 mm[Hg] NA Kruger PA-C Work Phone: [facility] 06-01-2022 16:42-0400 Diastolic blood pressure 68 mm[Hg] NA Kruger PA-C Work Phone: [facility] 06-01-2022 16:42-0400 Heart rate 71 /min NA Kruger PA-C Work Phone: [facility] 06-01-2022 16:42-0400 Respiratory rate 16 /min NA Kruger PA-C Work Phone: [facility] 06-01-2022 16:42-0400 SaO2% (BldA) [Mass fraction] 100 % NA Kruger PA-C Work Phone: [facility] 06-01-2022 16:42-0400 Systolic blood pressure 110 mm[Hg] NA Kruger PA-C Work Phone: [facility] 05-03-2022 08:13-0500 Body temperature 98.2 [degF] Maria Elena Praisler-Wood PHARMACY CLINICAL COORDINATOR.CREW MANAGER Work Phone: [facility] 05-03-2022 08:13-0500 Body weight 48.99 kg Maria Elena Praisler-Wood PHARMACY CLINICAL COORDINATOR.CREW MANAGER Work Phone: [facility] 05-03-2022 08:13-0500 Diastolic blood pressure 84 mm[Hg] Maria Elena Praisler-Wood PHARMACY CLINICAL COORDINATOR.CREW MANAGER Work Phone: [facility] 05-03-2022 08:13-0500 Heart rate 99 /min Maria Elena Praisler-Wood PHARMACY CLINICAL COORDINATOR.CREW MANAGER Work Phone: [facility] 05-03-2022 08:13-0500 Respiratory rate 18 /min Maria Elena Praisler-Wood PHARMACY CLINICAL COORDINATOR.CREW MANAGER Work Phone: [facility] 05-03-2022 08:13-0500 SaO2% (BldA) [Mass fraction] 98 % Maria Elena Praisler-Wood PHARMACY CLINICAL COORDINATOR.CREW MANAGER Work Phone: [facility] 05-03-2022 08:13-0500 Systolic blood pressure 120 mm[Hg] Maria Elena Praisler-Wood PHARMACY CLINICAL COORDINATOR.CREW MANAGER Work Phone: [facility] 04-22-2022 16:54-0500 Body height 155 cm NA Kruger PA-C Work Phone: [facility] 04-22-2022 16:54-0500 Body weight 49.9 kg NA Kruger PA-C Work Phone: [facility] 04-22-2022 16:54-0500 Diastolic blood pressure 66 mm[Hg] NA Kruger PA-C Work Phone: [facility] 04-22-2022 16:54-0500 Heart rate 68 /min NA Kruger PA-C Work Phone: [facility] 04-22-2022 16:54-0500 Respiratory rate 16 /min NA Kruger PA-C Work Phone: [facility] 04-22-2022 16:54-0500 SaO2% (BldA) [Mass fraction] 97 % NA Kruger PA-C Work Phone: [facility] 04-22-2022 16:54-0500 Systolic blood pressure 124 mm[Hg] NA Kruger PA-C Work Phone: [facility] 03-31-2022 11:22-0500 Body temperature 99.19 [degF] Santino Elizondo MD Work Phone: [facility] 03-31-2022 11:22-0500 Body weight 48.53 kg Santino Elizondo MD Work Phone: [facility] 03-31-2022 11:22-0500 Diastolic blood pressure 82 mm[Hg] Santino Elizondo MD Work Phone: [facility] 03-31-2022 11:22-0500 Heart rate 76 /min Santino Elizondo MD Work Phone: [facility] 03-31-2022 11:22-0500 Systolic blood pressure 110 mm[Hg] Santino Elizondo MD Work Phone: [facility] 02-18-2022 17:04-0500 Body weight 49.44 kg NA Kruger PA-C Work Phone: [facility] 02-18-2022 17:04-0500 Diastolic blood pressure 64 mm[Hg] NA Kruger PA-C Work Phone: [facility] 02-18-2022 17:04-0500 Heart rate 71 /min NA Kruger PA-C Work Phone: [facility] 02-18-2022 17:04-0500 Respiratory rate 16 /min NA Kruger PA-C Work Phone: [facility] 02-18-2022 17:04-0500 SaO2% (BldA) [Mass fraction] 96 % NA Kruger PA-C Work Phone: [facility] 02-18-2022 17:04-0500 Systolic blood pressure 108 mm[Hg] NA Kruger PA-C Work Phone: [facility] 10-28-2021 16:47-0400 Body weight 48.99 kg Bibimarli Almontehof PHARMACY CLINICAL COORDINATOR.CREW MANAGER Work Phone: [facility] 10-28-2021 16:47-0400 Diastolic blood pressure 62 mm[Hg] Bibi Tannhof PHARMACY CLINICAL COORDINATOR.CREW MANAGER Work Phone: [facility] 10-28-2021 16:47-0400 Heart rate 71 /min Bibi Tannhof PHARMACY CLINICAL COORDINATOR.CREW MANAGER Work Phone: [facility] 10-28-2021 16:47-0400 Respiratory rate 16 /min Bibi Tannhof PHARMACY CLINICAL COORDINATOR.CREW MANAGER Work Phone: [facility] 10-28-2021 16:47-0400 SaO2% (BldA) [Mass fraction] 96 % Bibi Tannhof PHARMACY CLINICAL COORDINATOR.CREW MANAGER Work Phone: [facility] 10-28-2021 16:47-0400 Systolic blood pressure 96 mm[Hg] Bibi Tannhof PHARMACY CLINICAL COORDINATOR.CREW MANAGER Work Phone: [facility] 10-15-2021 16:11-0400 Body weight 48.99 kg Santino Elizondo MD Work Phone: [facility] 10-15-2021 16:11-0400 Diastolic blood pressure 70 mm[Hg] Santino Elizondo MD Work Phone: [facility] 10-15-2021 16:11-0400 Heart rate 74 /min Santino Elizondo MD Work Phone: [facility] 10-15-2021 16:11-0400 Respiratory rate 14 /min Santino Elizondo MD Work Phone: [facility] 10-15-2021 16:11-0400 Systolic blood pressure 124 mm[Hg] Santino Elizondo MD Work Phone: [facility] 08-20-2021 17:00-0400 Body weight 48.99 kg NA Kruger PA-C Work Phone: [facility] 08-20-2021 17:00-0400 Diastolic blood pressure 56 mm[Hg] NA Kruger PA-C Work Phone: [facility] 08-20-2021 17:00-0400 Heart rate 72 /min NA Kruger PA-C Work Phone: [facility] 08-20-2021 17:00-0400 SaO2% (BldA) [Mass fraction] 98 % NA Kruger PA-C Work Phone: [facility] 08-20-2021 17:00-0400 Systolic blood pressure 108 mm[Hg] NA Kruger PA-C Work Phone: [facility] Encounters Encounter Date Encounter Type Care Provider Facility Start: 04-18-2023 End: 04-18-2023 stephanie KRUGER Facility:[facility] Start: 04-18-2023 End: 04-18-2023 Subsequent hospital visit by physician Bone Density [facility] Work Phone: Radiology Procedures Date Procedure Procedure Detail Performing Clinician Start: 04-18-2023 Dxa bone density aurora dy 1/> sites axial melquiades Storm Kruger PA-C Work Phone: Start: 07-31-2022 Lipid 1996 panel - S davi or Plasma NA Kruger PA-C Work Phone: Start: 05-03-2022 INFLUENZA A&B MOLECU LAR (POC) Maria Elena Bueno APRN.CNP Work Phone: Start: 05-03-2022 STREP A MOLECULAR (POC) [facility] Provider Start: 02-18-2022 Ecg routine ecg w/le ast 12 lds i&r only [facility] Provider Start: 11-13-2020 Mammography NA Slick LEVIN-Marie Work Phone: Start: 02-26-2019 Adult depression scr eening assessment NA Kruger PA-C Work Phone: Plan of Treatment Date Care Activity Detail Author Start: 08-01-2027 Lipid 1996 panel - S davi or Plasma Lipid Screening [facility] Start: 08-01-2027 Lipid panel Lipid Screening [facility] Start: 07-24-2025 Diabetes Screening Diabetes Screenin g [facility] Start: 10-31-2024 COLOGUARD (FIT-DNA) COLOGUARD (FIT-D NA) [facility] Start: 10-31-2024 COLORECTAL CANCER SCREENING COLORECTAL CANCER SCREENING [facility] Start: 10-31-2024 Screening for malign ant neoplasm of colon [facility] Start: 03-28-2024 Annual PCP Team Civil Engineering Project Manager roman Disease Visit Annual PCP Team Chronic Disease Visit [facility] Start: 03-28-2024 Screening for malign ant neoplasm of cervix [facility] Start: 03-22-2024 Screening for malign ant neoplasm of lung Lung Cancer Screening [facility] Start: 01-21-2024 Annual PCP Team Civil Engineering Project Manager roman Disease Visit Annual PCP Team Chronic Disease Visit [facility] Start: 07-07-2023 Hepatitis B Vaccine (3 of 3 - 19+ 3-dose series) Hepatitis B Vaccine (3 of 3 - 19+ 3-dose series) [facility] Start: 07-03-2023 ANNUAL PCP TEAM BASKET ASSEMBLER ROMAN DISEASE VISIT ANNUAL PCP TEAM CHRONIC DISEASE VISIT [facility] Start: 07-03-2023 HEPATITIS C SCREENING HEPATITIS C SC ANDRE [facility] Immunizations Immunization Date Immunization Notes Care Provider Griselda vega 03-02-2023 hepatitis B vaccine, adult dosage NA Slick LEVIN-Marie Work Phone: [facility] 01-05-2023 hepatitis B vaccine, unspecified formulation NA Kruger PA-C Work Phone: [facility] 12-22-2021 influenza virus vacc ine, unspecified formulation NA Kruger PA-C Work Phone: [facility] 01-11-2020 Influenza, injectabl e, Madin [place] Canine Kidney, quadrivalent with preservative NA Kruger PA-C Work Phone: [facility] 11-27-2018 influenza, injectabl e, quadrivalent, contains preservative NA Kruger PA-C Work Phone: [facility] Work Phone: 12-16-2017 influenza, injectabl e, quadrivalent, preservative free NA Kruger PA-C Work Phone: [facility] 12-14-2017 influenza virus vacc ine, unspecified formulation NA Kruger PA-C Work Phone: [facility] 12-02-2016 influenza, injectabl e, quadrivalent, contains preservative NA Kruger PA-C Work Phone: [facility] 12-02-2016 influenza, injectabl e, quadrivalent, preservative free NA Kruger PA-C Work Phone: [facility] 11-26-2015 influenza, seasonal, injectable NA Kruger PA-C Work Phone: [facility] Work Phone: 12-03-2014 influenza, seasonal, injectable NA Kruger PA-C Work Phone: [facility] 07-11-2014 pneumococcal polysaccharide vaccine, 23 valent NA Kruger PA-C Work Phone: [facility] 12-26-2013 influenza, seasonal, injectable NA Kruger PA-C Work Phone: [facility] Payers Date Payer Category Payer Private Health Insurance [facility] [id number] 2021-[facility] [phone] [address] [address] [place] [address] [facility] [id number] 2021 Private Health Insurance [facility] [id number] 2021-Present [phone] [address] [address] [place] [address] HMO [id number] 2021 Unknown [id number] 1965 Unknown [id number] 1965 Unknown [id number] Unknown [id number] Unknown [id number] Social History Date Type Detail Facility Start: 08-20-2021 End: 10-28-2021 Tobacco smoking status NHIS Ex-smoker [facility] End: 04-14-2021 History of tobacco use Current smoker [facility] Start: 08-20-2021 End: 01-20-2023 Cigarettes smoked current (pack per day) - Reported 1 [facility] Start: 08-20-2021 End: 10-28-2021 Tobacco use and exposure Smokeless tobacco non-user [facility] Start: 08-20-2021 End: 03-28-2023 Alcohol intake Current non-drinker of alcohol (finding) [facility] Start: 03-12-2019 End: 11-27-2019 History SDOH Alcohol Frequency 1 [facility] Start: 11-27-2019 History SDOH Alcohol Std Drinks 98 [facility] Start: 02-26-2019 End: 02-16-2022 History SDOH Social Connections Phone 5 [facility] Start: 02-26-2019 End: 02-16-2022 History SDOH Social Connections Membership 2 [facility] Start: 02-26-2019 History SDOH Social Connections Living 3 [facility] Start: 11-27-2019 History SDOH Physica l Activity MPS 15 [facility] Start: 11-27-2019 Education 21 [facility] Start: 1965 Sex Assigned At Female [facility] Start: 08-10-2021 End: 12-07-2021 Exposure to SARS-CoV-2 (event) Not sure [facility] End: 04-14-2021 History of tobacco use Cigarette Smoker [facility] Start: 02-16-2022 History SDOH Alcohol Std Drinks 0 [facility] Start: 02-16-2022 End: 01-20-2023 Social connection and isolation panel [facility] In a typical week, h ow many times do you talk on the telephone with family, friends, or neighbors? Patient refused [facility] Are you now , , , , never or living with a partner? Refused [facility] How often to you hav e a drink containing alcohol? Never [facility] Do you feel stress - tense, restless, nervous, or anxious, or unable to sleep at night because your mind is troubled all the time - these days [OSQ] Only a little [facility] (I/We) worried wheth er (my/our) food would run out before (I/we) got money to buy more. Never true [facility] In the past 12 month s, was there a time when you were not able to pay the mortgage or rent on time? No [facility] [facility] Gender identity Identifies as female gender (finding) [facility] Start: 10-03-2019 Sexual orientation Heterosexual (joselyn guillen) [facility] Clinical Notes 08-20-2021 to 04-18-2023 Joaquin Corbin RT(R) - 04/18/2023 3:30 PM Jason Sprague APRN.CREW MANAGER - 02/09/2023 11:22 AM Ella Huertas APRN.[facility] - 01/25/2023 9:17 AM ESTPatient InstructionsPatient Instructions Note Date & Type Note Facility 04-18-2023 Note HNO ID: [id number] Author: OJAQUIN CORBIN RT(R) Service: ? Author Type: Technologist Type: Progress Notes Filed: 04/18/2023 15:57 Note Text: Radiology Service Progress Note PATIENT NAME: Leena Yip DATE OF SERVICE: April 18, 2023 TIME: 3:36 PM PATIENT IDENTITY VERIFICATION COMPLETED USING TWO (2) IDENTIFIERS: Name and Date of confirmed by patient verbally. FALL SCREENING: Has the patient had 2 falls in the last year or 1 fall with injury or currently using an Ambulatory Assistive Device (Walker, Cane, Wheelchair, Crutches, etc.)? No PATIENT GENDER DATA: Female. status: : No status: NO. PATIENT RELEVANT IMPLANT DATA REVIEWED: Not Applicable PATIENT PRESENTS WITH AN IMPLANTABLE OR ATTACHED MANAGER PLANNING: No RADIOLOGY DEPARTMENT: Bone Density PERIPHERAL IV DATA: Not applicable SIGNED BY: RT Socorro(R) April 18, 2023 3:36 PM [facility] 04-18-2023 History of Present illness Narrative Radiology Service Progress Note PATIENT NAME: Leena Yip DATE OF SERVICE: April 18, 2023 TIME: 3:36 PM PATIENT IDENTITY VERIFICATION COMPLETED USING TWO (2) IDENTIFIERS: Name and Date of confirmed by patient verbally. FALL SCREENING: Has the patient had 2 falls in the last year or 1 fall with injury or currently using an Ambulatory Assistive Device (Walker, Cane, Wheelchair, Crutches, etc.)? No PATIENT GENDER DATA: Female. status: : No status: NO. PATIENT RELEVANT IMPLANT DATA REVIEWED: Not Applicable PATIENT PRESENTS WITH AN IMPLANTABLE OR ATTACHED MANAGER PLANNING: No RADIOLOGY DEPARTMENT: Bone Density PERIPHERAL IV DATA: Not applicable SIGNED BY: RT Socorro(R) April 18, 2023 3:36 PM documented in this encounter [facility] 03-28-2023 Note HNO ID: [id number] Author: PAWAN ALEMAN APRN.CREW MANAGER Service: ? Author Type: Nurse Practitioner Type: Progress Notes Filed: 03/28/2023 20:03 Note Text: This is a 57 year old female who presents today for annual well-woman exam. She denies any problems/concerns today. She is a . Periods are amenorrheic -- since 45. She is sexually active. One partners in the last year. control method: menopausal. Vaginal symptoms: denies discharge, burning, itching, odor. Urinary symptoms: denies dysuria, frequency, urgency, hematuria GI symptoms: irregular stooling -- diarrhea, constipation, hematochezia, melena Hx of abnormal pap: over 10 years ago. Last mammogram: 2020 Self Breast Exams: no She has a mammogram ordered and scheduled, but reports that she is not going to proceed. She has had bad experiences in the past and declines doing again. PAST MEDICAL HISTORY: PAST MEDICAL HISTORY Diagnosis Date Acute bronchitis with chronic obstructive pulmonary disease (COPD) ([facility]) ([facility]) 04/21/2016 06/07/2018 CTA chest with and without contrast: Bilateral breast implants. Normal thoracic arteries and aorta. Hyperinflation, emphysematous changes with bullous formation in both lungs more prominent in upper lobes. Asthma Endometriosis Menopause Migraine PUD (peptic ulcer disease) in high school Rheumatoid arthritis ([facility]) Dr. Sarah PAST SURGICAL HISTORY Procedure Laterality Date BREAST AUGMENTATION W/PROSTHETIC IMPLANT ELBOW SURGERY HX 07/14/2016, 11/10/2016 tendons and nerve torn from bone LAPAROSCOPY DIAGNOSTIC 1994 PAST SURGICAL HISTORY OF deviated septum/sinus PAST SURGICAL HISTORY OF impacted wisdom teeth ALLERGIES Clindamycin, Aspirin, Ciprofloxacin, Erythromycin, [id number] [Polyethylene Glycol 3350], and Penicillins MEDICATIONS Current Outpatient Medications Medication Sig SUMAtriptan (IMITREX STATDOSE PEN) 6 mg/0.5 mL pen Inject 0.5 mL subcutaneously as needed for migraine headache (see administration instructions). alendronate (FOSAMAX) 70 mg tablet Take 1 tablet by mouth one time a week. Take with a full glass of water, on an empty stomach; do NOT lie down for 30minutes. docosahexaenoic acid/epa (FISH OIL ORAL) Take by mouth. folic acid 1 mg tablet Take 1 tablet by mouth twice daily. predniSONE (DELTASONE) 1 mg tablet Take 4 mg by mouth once daily. CALCIUM ORAL Take 600 mg by mouth twice daily. albuterol HFA (PROAIR HFA) 90 mcg/actuation inhaler Inhale 2 Puffs as instructed every 4 hours as needed. ORENCIA CLICKJECT 125 mg/mL AutoInjector one time a week. BIOTIN ORAL Take by mouth. LEUCOVORIN CALCIUM ORAL Take 25 mg by mouth one time a week. Cholecalciferol, Vitamin D3, 1,000 unit cap Take 1,000 Units by mouth once daily. methotrexate 2.5 mg tablet Take 7 tablets by mouth every Tuesday. fluticasone (FLONASE) 50 mcg/actuation nasal spray Use 2 Sprays in each nostril once daily. Rinse mouth after use. (Patient not taking: Reported on 03/08/2023) predniSONE (DELTASONE) 10 mg tablet Take 4 tabs daily for 3 days, then 2 tabs daily for 3 days, then 1 tab daily for 3 days with food. (Patient not taking: Reported on 03/08/2023) No current facility-administered medications for this visit. FAMILY HISTORY Problem Relation Age of Onset other (RA) Mother other (Hypothyroid) Mother other (chrones) Mother Cancer Father lung with brain mestastases Cancer Sister Thyroid Social History Tobacco Use Smoking status: Former Packs/day: 1.00 Years: 20.00 Additional pack years: 0.00 Total pack years: 20.00 Types: Cigarettes Quit date: 04/14/2021 Years since quittin.9 Smokeless tobacco: Never Vaping Use Vaping Use: Never used Substance Use Topics Alcohol use: No Drug use: No EXAM: BP 102/70 Pulse 73 Resp 16 Wt 51.7 kg (114 lb) LMP 07/25/2013 SpO2 98% BMI 21.54 kg/m? PHYSICAL EXAM: General Appearance: Well appearing, alert, in no acute distress, well-hydrated, well nourished.. Skin: Skin color, texture, turgor normal, no suspicious rashes or lesions. Head: Normocephalic, no masses, lesions, tenderness or abnormalities. Eyes: Anicteric sclera. Extraocular movements are intact. . Neck: Supple, no adenopathy; thyroid symmetric, normal size, no bruits. Lungs: Lungs clear to auscultation. No wheezing, rhonchi, rales.. Heart: RRR without murmur, gallop, or rubs. No ectopy. Breast: Inspection negative. No nipple discharge or bleeding. No palpable mass and No skin changes or dimpling. Abdomen: Abdomen soft, non-tender. Bowel sounds normal. No masses, organomegaly. Pelvic: Negative findings: external genitalia normal, no vulvar lesions, no cervical lesions, normal discharge, well estrogenized, good vaginal support. ASSESSMENT/PLAN: 1. Women's annual routine gynecological examination - ICD9: V72.31, ICD10: Z01.419 - Completed pelvic and breast exam - Completed pap exam - Encouraged monthly BSE - Fol (more content not included)... [facility] 03-08-2023 Note HNO ID: [id number] Author: Cari Milian APRN.CREW MANAGER Service: ? Author Type: Nurse Practitioner Type: Progress Notes Filed: 03/08/2023 11:18 AM Note Text: LUNG SCREENING VISIT PRIMARY CARE PHYSICIAN: Solange Kruger PA-C PULMONARY PROVIDER: none Results will be communicated via letter or electronic record if applicable. Visit Delivery: In Person Patient Visit Type: New to Screening Current or Ex-smoker? ex smoker Exam Type: baseline LDCT Number of Pack Years: 44 Number of Years since Quit: 1 REQUESTER: The referring provider advised the patient to have screening. HISTORY OF PRESENT ILLNESS: Leena Yip is a 57 year old Former smoker who presents for lung screening. Respiratory symptoms include: SOB: No Chest tightness: No Coughing: No Hemoptysis: No Wheezing: No Fever/Chills: No Recent Respiratory Infection: No Unintentional weight loss: No Last 6 Encounter Wt Readings: Date: Wt: 03/08/2023 50.9 kg (112 lb 3.2 oz) 02/09/2023 49.9 kg (110 lb) 01/25/2023 49.9 kg (110 lb) 01/20/2023 49.9 kg (110 lb) 07/02/2022 0 kg () 05/12/2022 49 kg (108 lb) ECOG PERFORMANCE STATUS: 0- Fully active, able to carry on all pre-disease performance w/o restriction. Modified Medical Research [place] Dyspnea Scale (MMRC) I only get breathless with strenous exercise 0 PAST MEDICAL HISTORY Diagnosis Date Acute bronchitis with chronic obstructive pulmonary disease (COPD) ([facility]) ([facility]) 04/21/2016 06/07/2018 CTA chest with and without contrast: Bilateral breast implants. Normal thoracic arteries and aorta. Hyperinflation, emphysematous changes with bullous formation in both lungs more prominent in upper lobes. Asthma Endometriosis Menopause Migraine PUD (peptic ulcer disease) in high school Rheumatoid arthritis ([facility]) Dr. Sarah PAST SURGICAL HISTORY Procedure Laterality Date BREAST AUGMENTATION W/PROSTHETIC IMPLANT ELBOW SURGERY HX 07/14/2016, 11/10/2016 tendons and nerve torn from bone LAPAROSCOPY DIAGNOSTIC 1994 PAST SURGICAL HISTORY OF deviated septum/sinus PAST SURGICAL HISTORY OF impacted wisdom teeth FAMILY HISTORY Problem Relation Age of Onset other (RA) Mother other (Hypothyroid) Mother other (chrones) Mother Cancer Father lung with brain mestastases Cancer Sister Thyroid SUMAtriptan (IMITREX STATDOSE PEN) 6 mg/0.5 mL pen Inject 0.5 mL subcutaneously as needed for migraine headache (see administration instructions). alendronate (FOSAMAX) 70 mg tablet Take 1 tablet by mouth one time a week. Take with a full glass of water, on an empty stomach; do NOT lie down for 30minutes. docosahexaenoic acid/epa (FISH OIL ORAL) Take by mouth. folic acid 1 mg tablet Take 1 tablet by mouth twice daily. predniSONE (DELTASONE) 1 mg tablet Take 4 mg by mouth once daily. CALCIUM ORAL Take 600 mg by mouth twice daily. albuterol HFA (PROAIR HFA) 90 mcg/actuation inhaler Inhale 2 Puffs as instructed every 4 hours as needed. ORENCIA CLICKJECT 125 mg/mL AutoInjector one time a week. BIOTIN ORAL Take by mouth. LEUCOVORIN CALCIUM ORAL Take 25 mg by mouth one time a week. Cholecalciferol, Vitamin D3, 1,000 unit cap Take 1,000 Units by mouth once daily. methotrexate 2.5 mg tablet Take 7 tablets by mouth every Tuesday. fluticasone (FLONASE) 50 mcg/actuation nasal spray Use 2 Sprays in each nostril once daily. Rinse mouth after use. (Patient not taking: Reported on 03/08/2023) predniSONE (DELTASONE) 10 mg tablet Take 4 tabs daily for 3 days, then 2 tabs daily for 3 days, then 1 tab daily for 3 days with food. (Patient not taking: Reported on 03/08/2023) ALLERGIES Allergen Reactions Clindamycin Rash Aspirin Other: See Comments Scratch test at a child. Ciprofloxacin Rash, Hives Erythromycin Vomiting [id number] [Polyethyle* Intolerance Nausea Penicillins Other: See Comments Childhood allergy/cephalosporins are ok-has used in the past. Can take augmentin The medications and allergies were reviewed and reconciled for this patient and deemed current. Lung Cancer Risk Factors: 1.Tobacco Use: Start Age 12, Quit Age: 56, Average packs per day 1, Pack Years 44 2. Passive Smoke Exposure: Yes, as a Child and as an Adult 3. Personal hx of malignancy: No, Type of Cancer: 4. Significant exposures (1 year or more of exposure): None, 5. Race: White 6. Education: Some College 7. BMI:Body mass index is 21.2 kg/m?. Patient-entered Height: 5'1 Patient-entered Weight: 110 pounds 8. COPD: No 9. Pneumonia in the past 5 years: No 10. Is there a history of lung cancer in a first degree relative? Yes 11. Is there a history of lung cancer in a non-first degree relative? Yes 12. Is there a history of any other cancer in a first degree relative? Yes Health Maintenance Immunization History Administered Date(s) Administered COVID-19 original vaccine, full dose, monovalent (MODERNA) 05/28/2020 06/25/2020 hepatitis B (He (more content not included)... [facility] 02-09-2023 Note HNO ID: [id number] Author: Jason Root APRN.CREW MANAGER Service: ? Author Type: Nurse Practitioner Type: Progress Notes Filed: 02/09/2023 12:01 PM Note Text: Subjective HPI Nontoxic-appearing female presents urgent care chief complaint foreign body right index finger. Duration of symptoms 8 days. Associated symptoms pain swelling and redness to that area. Patient states this was a piece of furniture when a splinter broke off in her finger. Was able to get most of it out feels like foreign body still present. No OTC medications. Pain to this area. No decreased range of motion numbness or tingling. No surgeries or fractures to this area. No fever body aches chills nausea vomiting. Past medical history prescription medication use allergies reviewed. .Patient presents with: splinter right index finger: X 8 days PAST MEDICAL HISTORY Diagnosis Date Acute bronchitis with chronic obstructive pulmonary disease (COPD) ([facility]) 04/21/2016 06/07/2018 CTA chest with and without contrast: Bilateral breast implants. Normal thoracic arteries and aorta. Hyperinflation, emphysematous changes with bullous formation in both lungs more prominent in upper lobes. Asthma Endometriosis Menopause Migraine PUD (peptic ulcer disease) in high school Rheumatoid arthritis ([facility]) Dr. Sarah PAST SURGICAL HISTORY Procedure Laterality Date BREAST AUGMENTATION W/PROSTHETIC IMPLANT ELBOW SURGERY HX 07/14/2016, 11/10/2016 tendons and nerve torn from bone LAPAROSCOPY DIAGNOSTIC 1994 PAST SURGICAL HISTORY OF deviated septum/sinus PAST SURGICAL HISTORY OF impacted wisdom teeth ALLERGIES Clindamycin, Aspirin, Ciprofloxacin, Erythromycin, [id number] [Polyethylene Glycol 3350], and Penicillins MEDICATIONS fluticasone (FLONASE) 50 mcg/actuation nasal spray Use 2 Sprays in each nostril once daily. Rinse mouth after use. predniSONE (DELTASONE) 10 mg tablet Take 4 tabs daily for 3 days, then 2 tabs daily for 3 days, then 1 tab daily for 3 days with food. SUMAtriptan (IMITREX STATDOSE PEN) 6 mg/0.5 mL pen Inject 0.5 mL subcutaneously as needed for migraine headache (see administration instructions). alendronate (FOSAMAX) 70 mg tablet Take 1 tablet by mouth one time a week. Take with a full glass of water, on an empty stomach; do NOT lie down for 30minutes. docosahexaenoic acid/epa (FISH OIL ORAL) Take by mouth. folic acid 1 mg tablet Take 1 tablet by mouth twice daily. predniSONE (DELTASONE) 1 mg tablet Take 4 mg by mouth once daily. CALCIUM ORAL Take 600 mg by mouth twice daily. albuterol HFA (PROAIR HFA) 90 mcg/actuation inhaler Inhale 2 Puffs as instructed every 4 hours as needed. ORENCIA CLICKJECT 125 mg/mL AutoInjector one time a week. BIOTIN ORAL Take by mouth. LEUCOVORIN CALCIUM ORAL Take 25 mg by mouth one time a week. Cholecalciferol, Vitamin D3, 1,000 unit cap Take 1,000 Units by mouth once daily. methotrexate 2.5 mg tablet Take 7 tablets by mouth every Tuesday. FAMILY HISTORY Problem Relation Age of Onset other (RA) Mother other (Hypothyroid) Mother other (chrones) Mother Cancer Father lung with brain mestastases Cancer Sister Thyroid Social History Tobacco Use Smoking status: Former Packs/day: 1.00 Years: 20.00 Additional pack years: 0.00 Total pack years: 20.00 Types: Cigarettes Quit date: 04/14/2021 Years since quittin.8 Smokeless tobacco: Never Substance Use Topics Alcohol use: No Drug use: No BP 118/72 Pulse 87 Temp 36.9 ?C (98.5 ?F) (Tympanic) Resp 18 Wt 49.9 kg (110 lb) LMP 07/25/2013 SpO2 99% BMI 20.77 kg/m? Review of Systems Constitutional: Negative for chills, fever and malaise/fatigue. HENT: Negative for congestion, ear discharge, ear pain, sinus pain and sore throat. Eyes: Negative for blurred vision, pain, discharge and redness. Respiratory: Negative for cough, hemoptysis, sputum production, shortness of breath, wheezing and stridor. Cardiovascular: Negative for chest pain. Gastrointestinal: Negative for abdominal pain, diarrhea, nausea and vomiting. Musculoskeletal: Negative for joint pain and myalgias. Skin: Negative for itching and rash. Neurological: Negative for dizziness and headaches. Objective Physical Exam Constitutional: General: She is not in acute distress. Appearance: She is not toxic-appearing. HENT: Head: Normocephalic. Nose: Nose normal. Eyes: Pupils: Pupils are equal, round, and reactive to light. Cardiovascular: Rate and Rhythm: Normal rate. Pulmonary: Effort: Pulmonary effort is normal. No respiratory distress. Musculoskeletal: Hands: Cervical back: Normal range of motion. Comments: Area representing foreign body noted highlighted area. Small amount edema noted. Small amount of erythema noted. No pain with palpation over PIP MCP or DIP joint. Neurovascular intact. Skin: General: Skin is warm and dry. Neurological: General: No focal deficit prese (more content not included)... [facility] 02-09-2023 History of Present illness Narrative Images from the original note were not included. Subjective HPI Nontoxic-appearing female presents urgent care chief complaint foreign body right index finger. Duration of symptoms 8 days. Associated symptoms pain swelling and redness to that area. Patient states this was a piece of furniture when a splinter broke off in her finger. Was able to get most of it out feels like foreign body still present. No OTC medications. Pain to this area. No decreased range of motion numbness or tingling. No surgeries or fractures to this area. No fever body aches chills nausea vomiting. Past medical history prescription medication use allergies reviewed. .Patient presents with: splinter right index finger: X 8 days PAST MEDICAL HISTORY Diagnosis Date Acute bronchitis with chronic obstructive pulmonary disease (COPD) ([facility]) 04/21/2016 06/07/2018 CTA chest with and without contrast: Bilateral breast implants. Normal thoracic arteries and aorta. Hyperinflation, emphysematous changes with bullous formation in both lungs more prominent in upper lobes. Asthma Endometriosis Menopause Migraine PUD (peptic ulcer disease) in high school Rheumatoid arthritis ([facility]) Dr. Sarah PAST SURGICAL HISTORY Procedure Laterality Date BREAST AUGMENTATION W/PROSTHETIC IMPLANT ELBOW SURGERY HX 07/14/2016, 11/10/2016 tendons and nerve torn from bone LAPAROSCOPY DIAGNOSTIC 1994 PAST SURGICAL HISTORY OF deviated septum/sinus PAST SURGICAL HISTORY OF impacted wisdom teeth ALLERGIES Clindamycin, Aspirin, Ciprofloxacin, Erythromycin, [id number] [Polyethylene Glycol 3350], and Penicillins MEDICATIONS fluticasone (FLONASE) 50 mcg/actuation nasal spray Use 2 Sprays in each nostril once daily. Rinse mouth after use. predniSONE (DELTASONE) 10 mg tablet Take 4 tabs daily for 3 days, then 2 tabs daily for 3 days, then 1 tab daily for 3 days with food. SUMAtriptan (IMITREX STATDOSE PEN) 6 mg/0.5 mL pen Inject 0.5 mL subcutaneously as needed for migraine headache (see administration instructions). alendronate (FOSAMAX) 70 mg tablet Take 1 tablet by mouth one time a week. Take with a full glass of water, on an empty stomach; do NOT lie down for 30minutes. docosahexaenoic acid/epa (FISH OIL ORAL) Take by mouth. folic acid 1 mg tablet Take 1 tablet by mouth twice daily. predniSONE (DELTASONE) 1 mg tablet Take 4 mg by mouth once daily. CALCIUM ORAL Take 600 mg by mouth twice daily. albuterol HFA (PROAIR HFA) 90 mcg/actuation inhaler Inhale 2 Puffs as instructed every 4 hours as needed. ORENCIA CLICKJECT 125 mg/mL AutoInjector one time a week. BIOTIN ORAL Take by mouth. LEUCOVORIN CALCIUM ORAL Take 25 mg by mouth one time a week. Cholecalciferol, Vitamin D3, 1,000 unit cap Take 1,000 Units by mouth once daily. methotrexate 2.5 mg tablet Take 7 tablets by mouth every Tuesday. FAMILY HISTORY Problem Relation Age of Onset other (RA) Mother other (Hypothyroid) Mother other (chrones) Mother Cancer Father lung with brain mestastases Cancer Sister Thyroid Social History Tobacco Use Smoking status: Former Packs/day: 1.00 Years: 20.00 Additional pack years: 0.00 Total pack years: 20.00 Types: Cigarettes Quit date: 04/14/2021 Years since quittin.8 Smokeless tobacco: Never Substance Use Topics Alcohol use: No Drug use: No BP 118/72 Pulse 87 Temp 36.9 C (98.5 F) (Tympanic) Resp 18 Wt 49.9 kg (110 lb) LMP 07/25/2013 SpO2 99% BMI 20.77 kg/m Review of Systems Constitutional: Negative for chills, fever and malaise/fatigue. HENT: Negative for congestion, ear discharge, ear pain, sinus pain and sore throat. Eyes: Negative for blurred vision, pain, discharge and redness. Respiratory: Negative for cough, hemoptysis, sputum production, shortness of breath, wheezing and stridor. Cardiovascular: Negative for chest pain. Gastrointestinal: Negative for abdominal pain, diarrhea, nausea and vomiting. Musculoskeletal: Negative for joint pain and myalgias. Skin: Negative for itching and rash. Neurological: Negative for dizziness and headaches. Objective Physical Exam Constitutional: General: She is not in acute distress. Appearance: She is not toxic-appearing. HENT: Head: Normocephalic. Nose: Nose normal. Eyes: Pupils: Pupils are equal, round, and reactive to light. Cardiovascular: Rate and Rhythm: Normal rate. Pulmonary: Effort: Pulmonary effort is normal. No respiratory distress. Musculoskeletal: Hands: Cervical back: Normal range of motion. Comments: Area representing foreign body noted highlighted area. Small amount edema noted. Small amount of erythema noted. No pain with palpation over PIP MCP or DIP joint. Neurovascular intact. Skin: General: Skin is warm and dry. Neurological: General: No focal deficit present. Mental Status: She is alert. 0.5 cc lidocaine used anesthetize area. 18-gauge noted used to remove small amount of skin. 1/2 cm narrow piece of foreign body removed. This foreign body represents a piece of wood. Dressing applied. Tolerated well. ASSESSMENT/PLAN: 1. Superficial foreign body of right hand, initial encounter - ICD9: 914.6, ICD10: S60.551A Diagnosed with foreign body right hand. Foreign body successfully removed. Tolerated well. Use mupirocin. Red flags reevaluation discussed. Patient was educated on supportive therapies. Patient will follow up with primary care provider as needed. Patient was instructed to immediately proceed to emergency room for any new, worsening, or symptoms lasting longer than anticipated. The patient's clinical presentation is otherwise unremarkable at this time. Based on exam and clinical finding, the patient is stable for discharge. Plan of care was discussed with patient. Patient verbalizes understanding and agrees to plan of care. This note was generated using Animeeple software. It may contain errors in wording, punctuation, or spelling. Jason Root APRN.EMMA documented in this encounter [facility] 01-25-2023 Note HNO ID: [id number] Author: Ella Leblanc APRN.EMMA Service: ? Author Type: Nurse Practitioner Type: Progress Notes Filed: 01/25/2023 9:38 AM Note Text: This note was created using Digital [employer]. Subjective Leena Yip is a 57 year old female. 57 year old female With PMH RA, asthma, empysema, and migraines presents for illness. Acute onset 01/22/23 +cough +sore throat +headache +sinus pressure +fatigue +chills Denies body aches Denies fever Denies ear pain. Has used Dayquil and Nyquil with no relief. Denies tobacco usage. Quit 2 years ago The history is provided by the patient. No histotechnician was used. Sinus Problem This is a new problem. The current episode started in the past 7 days. The problem occurs constantly. The problem has been unchanged. Associated symptoms include congestion, coughing, headaches and a sore throat. Pertinent negatives include no abdominal pain, anorexia, arthralgias, change in bowel habit, chest pain, chills, diaphoresis, fatigue, fever, joint swelling, myalgias, nausea, neck pain, numbness, rash, swollen glands, urinary symptoms, vertigo, visual change, vomiting or weakness. Nothing aggravates the symptoms. Treatments tried: Dayquil and Nyquil. The treatment provided no relief. PAST MEDICAL HISTORY Diagnosis Date Acute bronchitis with chronic obstructive pulmonary disease (COPD) ([facility]) 04/21/2016 06/07/2018 CTA chest with and without contrast: Bilateral breast implants. Normal thoracic arteries and aorta. Hyperinflation, emphysematous changes with bullous formation in both lungs more prominent in upper lobes. Asthma Endometriosis Menopause Migraine PUD (peptic ulcer disease) in high school Rheumatoid arthritis (HCC) Dr. Sarah PAST SURGICAL HISTORY Procedure Laterality Date BREAST AUGMENTATION W/PROSTHETIC IMPLANT ELBOW SURGERY HX 07/14/2016, 11/10/2016 tendons and nerve torn from bone LAPAROSCOPY DIAGNOSTIC 1994 PAST SURGICAL HISTORY OF deviated septum/sinus PAST SURGICAL HISTORY OF impacted wisdom teeth ALLERGIES Clindamycin, Aspirin, Ciprofloxacin, Erythromycin, [id number] [Polyethylene Glycol 3350], and Penicillins MEDICATIONS SUMAtriptan (IMITREX STATDOSE PEN) 6 mg/0.5 mL pen Inject 0.5 mL subcutaneously as needed for migraine headache (see administration instructions). alendronate (FOSAMAX) 70 mg tablet Take 1 tablet by mouth one time a week. Take with a full glass of water, on an empty stomach; do NOT lie down for 30minutes. docosahexaenoic acid/epa (FISH OIL ORAL) Take by mouth. folic acid 1 mg tablet Take 1 tablet by mouth twice daily. predniSONE (DELTASONE) 1 mg tablet Take 4 mg by mouth once daily. CALCIUM ORAL Take 600 mg by mouth twice daily. albuterol HFA (PROAIR HFA) 90 mcg/actuation inhaler Inhale 2 Puffs as instructed every 4 hours as needed. ORENCIA CLICKJECT 125 mg/mL AutoInjector one time a week. BIOTIN ORAL Take by mouth. LEUCOVORIN CALCIUM ORAL Take 25 mg by mouth one time a week. Cholecalciferol, Vitamin D3, 1,000 unit cap Take 1,000 Units by mouth once daily. methotrexate 2.5 mg tablet Take 7 tablets by mouth every Tuesday. fluticasone (FLONASE) 50 mcg/actuation nasal spray Use 2 Sprays in each nostril once daily. Rinse mouth after use. doxycycline monohydrate 100 mg tablet Take 1 tablet by mouth two times a day for 7 days. predniSONE (DELTASONE) 10 mg tablet Take 4 tabs daily for 3 days, then 2 tabs daily for 3 days, then 1 tab daily for 3 days with food. FAMILY HISTORY Problem Relation Age of Onset other (RA) Mother other (Hypothyroid) Mother other (chrones) Mother Cancer Father lung with brain mestastases Cancer Sister Thyroid Social History Tobacco Use Smoking status: Former Packs/day: 1.00 Years: 20.00 Additional pack years: 0.00 Total pack years: 20.00 Types: Cigarettes Quit date: 04/14/2021 Years since quittin.7 Smokeless tobacco: Never Substance Use Topics Alcohol use: No Drug use: No Review of Systems Constitutional: Negative for chills, diaphoresis, fatigue and fever. HENT: Positive for congestion, postnasal drip, rhinorrhea, sinus pressure, sinus pain and sore throat. Eyes: Negative for pain, discharge and itching. Respiratory: Positive for cough. Negative for apnea, choking and chest tightness. Cardiovascular: Negative for chest pain. Gastrointestinal: Negative for abdominal pain, anorexia, change in bowel habit, nausea and vomiting. Musculoskeletal: Negative for arthralgias, joint swelling, myalgias and neck pain. Skin: Negative for color change, pallor and rash. Allergic/Immunologic: Positive for environmental allergies and immunocompromised state. Negative for food allergies. Neurological: Positive for headaches. Negative for dizziness, vertigo, facial asymmetry, weakness and numbness. Hematological: Negative for adenopathy. Does not bruise/bleed easily. Psychiatric/Behavioral: Ne (more content not included)... [facility] 01-25-2023 History of Present illness Narrative This note was created using Digital Folioriter. Subjective Leena Yip is a 57 year old female. 57 year old female With PMH RA, asthma, empysema, and migraines presents for illness. Acute onset 01/22/23 +cough +sore throat +headache +sinus pressure +fatigue +chills Denies body aches Denies fever Denies ear pain. Has used Dayquil and Nyquil with no relief. Denies tobacco usage. Quit 2 years ago The history is provided by the patient. No histotechnician was used. Sinus Problem This is a new problem. The current episode started in the past 7 days. The problem occurs constantly. The problem has been unchanged. Associated symptoms include congestion, coughing, headaches and a sore throat. Pertinent negatives include no abdominal pain, anorexia, arthralgias, change in bowel habit, chest pain, chills, diaphoresis, fatigue, fever, joint swelling, myalgias, nausea, neck pain, numbness, rash, swollen glands, urinary symptoms, vertigo, visual change, vomiting or weakness. Nothing aggravates the symptoms. Treatments tried: Dayquil and Nyquil. The treatment provided no relief. PAST MEDICAL HISTORY Diagnosis Date Acute bronchitis with chronic obstructive pulmonary disease (COPD) ([facility]) 04/21/2016 06/07/2018 CTA chest with and without contrast: Bilateral breast implants. Normal thoracic arteries and aorta. Hyperinflation, emphysematous changes with bullous formation in both lungs more prominent in upper lobes. Asthma Endometriosis Menopause Migraine PUD (peptic ulcer disease) in high school Rheumatoid arthritis ([facility]) Dr. Sarah PAST SURGICAL HISTORY Procedure Laterality Date BREAST AUGMENTATION W/PROSTHETIC IMPLANT ELBOW SURGERY HX 07/14/2016, 11/10/2016 tendons and nerve torn from bone LAPAROSCOPY DIAGNOSTIC 1994 PAST SURGICAL HISTORY OF deviated septum/sinus PAST SURGICAL HISTORY OF impacted wisdom teeth ALLERGIES Clindamycin, Aspirin, Ciprofloxacin, Erythromycin, [id number] [Polyethylene Glycol 3350], and Penicillins MEDICATIONS SUMAtriptan (IMITREX STATDOSE PEN) 6 mg/0.5 mL pen Inject 0.5 mL subcutaneously as needed for migraine headache (see administration instructions). alendronate (FOSAMAX) 70 mg tablet Take 1 tablet by mouth one time a week. Take with a full glass of water, on an empty stomach; do NOT lie down for 30minutes. docosahexaenoic acid/epa (FISH OIL ORAL) Take by mouth. folic acid 1 mg tablet Take 1 tablet by mouth twice daily. predniSONE (DELTASONE) 1 mg tablet Take 4 mg by mouth once daily. CALCIUM ORAL Take 600 mg by mouth twice daily. albuterol HFA (PROAIR HFA) 90 mcg/actuation inhaler Inhale 2 Puffs as instructed every 4 hours as needed. ORENCIA CLICKJECT 125 mg/mL AutoInjector one time a week. BIOTIN ORAL Take by mouth. LEUCOVORIN CALCIUM ORAL Take 25 mg by mouth one time a week. Cholecalciferol, Vitamin D3, 1,000 unit cap Take 1,000 Units by mouth once daily. methotrexate 2.5 mg tablet Take 7 tablets by mouth every Tuesday. fluticasone (FLONASE) 50 mcg/actuation nasal spray Use 2 Sprays in each nostril once daily. Rinse mouth after use. doxycycline monohydrate 100 mg tablet Take 1 tablet by mouth two times a day for 7 days. predniSONE (DELTASONE) 10 mg tablet Take 4 tabs daily for 3 days, then 2 tabs daily for 3 days, then 1 tab daily for 3 days with food. FAMILY HISTORY Problem Relation Age of Onset other (RA) Mother other (Hypothyroid) Mother other (chrones) Mother Cancer Father lung with brain mestastases Cancer Sister Thyroid Social History Tobacco Use Smoking status: Former Packs/day: 1.00 Years: 20.00 Additional pack years: 0.00 Total pack years: 20.00 Types: Cigarettes Quit date: 04/14/2021 Years since quittin.7 Smokeless tobacco: Never Substance Use Topics Alcohol use: No Drug use: No Review of Systems Constitutional: Negative for chills, diaphoresis, fatigue and fever. HENT: Positive for congestion, postnasal drip, rhinorrhea, sinus pressure, sinus pain and sore throat. Eyes: Negative for pain, discharge and itching. Respiratory: Positive for cough. Negative for apnea, choking and chest tightness. Cardiovascular: Negative for chest pain. Gastrointestinal: Negative for abdominal pain, anorexia, change in bowel habit, nausea and vomiting. Musculoskeletal: Negative for arthralgias, joint swelling, myalgias and neck pain. Skin: Negative for color change, pallor and rash. Allergic/Immunologic: Positive for environmental allergies and immunocompromised state. Negative for food allergies. Neurological: Positive for headaches. Negative for dizziness, vertigo, facial asymmetry, weakness and numbness. Hematological: Negative for adenopathy. Does not bruise/bleed easily. Psychiatric/Behavioral: Negative for agitation and behavioral problems. Objective BP 110/60 Pulse 68 Temp 36.6 C (97.9 F) Resp 16 Wt 49.9 kg (110 lb) LMP 07/25/2013 SpO2 98% BMI 20.77 kg/m Physical Exam Vitals and nursing note reviewed. Constitutional: General: She is not in acute distress. Appearance: Normal appearance. She is normal weight. She is not ill-appearing, toxic-appearing or diaphoretic. HENT: Head: Normocephalic and atraumatic. Comments: Frontal sinus pressure Right Ear: Ear canal and external ear normal. Left Ear: Ear canal and external ear normal. Ears: Comments: Bilateral TM's erythematous Nose: Nose normal. No congestion or rhinorrhea. Mouth/Throat: Mouth: Mucous membranes are moist. Pharynx: No oropharyngeal exudate or posterior oropharyngeal erythema. Eyes: General: Right eye: No discharge. Left eye: No discharge. Extraocular Movements: Extraocular movements intact. Conjunctiva/sclera: Conjunctivae normal. Pupils: Pupils are equal, round, and reactive to light. Cardiovascular: Rate and Rhythm: Normal rate and regular rhythm. Pulses: Normal pulses. Heart sounds: Normal heart sounds. No murmur heard. No friction rub. Pulmonary: Effort: Pulmonary effort is normal. No respiratory distress. Breath sounds: Normal breath sounds. No stridor. No wheezing, rhonchi or rales. Chest: Chest wall: No tenderness. Abdominal: General: Abdomen is flat. There is no distension. Palpations: Abdomen is soft. There is no mass. Tenderness: There is no abdominal tenderness. There is no right CVA tenderness, left CVA tenderness, guarding or rebound. Hernia: No hernia is present. Musculoskeletal: General: No swelling, tenderness, deformity or signs of injury. Normal range of motion. Cervical back: Normal range of motion and neck supple. No rigidity. Right lower leg: No edema. Left lower leg: No edema. Lymphadenopathy: Cervical: Cervical adenopathy present. Skin: General: Skin is warm and dry. Coloration: Skin is not jaundiced or pale. Findings: No bruising, erythema, lesion or rash. Neurological: General: No focal deficit present. Mental Status: She is alert and oriented to person, place, and time. Cranial Nerves: No cranial nerve deficit. Sensory: No sensory deficit. Motor: No weakness. Coordination: Coordination normal. Gait: Gait normal. Psychiatric: Mood and Affect: Mood normal. Behavior: Behavior normal. Thought Content: Thought content normal. Judgment: Judgment normal. Assessment and Plan ASSESSMENT/PLAN: 1. COPD with exacerbation (HCC) - ICD9: 491.21, ICD10: J44.1 (primary diagnosis) Former smoker, Quit 2 years ago Lungs CTA RX Doxycyline RX Prendisone taper (she will quit her daily 4 mg ) Declines COVID/Flu testing 2. Rhinosinusitis - ICD9: 473.9, ICD10: J32.9 - The patient should also be given OTC cough and cold meds as needed, warm salt water gargles, throat lozenges and/or OTC throat spray as needed, and nasal saline gtts and suction prn for the first 5-7 days of treatment. - Supportive care with plenty of fluids, rest, and analgesia prn. - Follow up in 3-5 days if symptoms persist or worsen. Ella Leblanc APRN.CREW MANAGER documented in this encounter [facility] 01-20-2023 Note HNO ID: [id number] Author: Solange Kruger PA-C Service: ? Author Type: Physician Patcher Type: Progress Notes Filed: 01/21/2023 3:19 PM Note Text: 57 year old female with c/o cellulitis, but that has gone away now and has concerns about a different rash. Rash on dorsal side of both legs has been present for 3 months and flares up. Only thing that makes it go away is a triamcinolone cream she was prescribed last year for ring worm. But it stills comes back. Reports it itches like crazy and sometimes keeps her up at night. Is only on both shins, never anywhere else. Fluid in left knee, tender, swollen anterior medial left upper leg below knee. Very tender on touch or bumping. No pain in leg. . HISTORIES FAMILY HISTORY Problem Relation Age of Onset other (RA) Mother other (Hypothyroid) Mother other (chrones) Mother Cancer Father lung with brain mestastases Cancer Sister Thyroid PAST MEDICAL HISTORY Diagnosis Date Acute bronchitis with chronic obstructive pulmonary disease (COPD) (HCC) 04/21/2016 06/07/2018 CTA chest with and without contrast: Bilateral breast implants. Normal thoracic arteries and aorta. Hyperinflation, emphysematous changes with bullous formation in both lungs more prominent in upper lobes. Asthma Endometriosis Menopause Migraine PUD (peptic ulcer disease) in high school Rheumatoid arthritis (HCC) Dr. Sarah PAST SURGICAL HISTORY Procedure Laterality Date BREAST AUGMENTATION W/PROSTHETIC IMPLANT ELBOW SURGERY HX 07/14/2016, 11/10/2016 tendons and nerve torn from bone LAPAROSCOPY DIAGNOSTIC 1994 PAST SURGICAL HISTORY OF deviated septum/sinus PAST SURGICAL HISTORY OF impacted wisdom teeth Social History Tobacco Use Smoking status: Former Packs/day: 1.00 Years: 20.00 Additional pack years: 0.00 Total pack years: 20.00 Types: Cigarettes Quit date: 04/14/2021 Years since quittin.7 Smokeless tobacco: Never Substance Use Topics Alcohol use: No Drug use: No ACTIVE PROBLEM LIST Symptomatic Menopausal Or Female Climacteric States Migraine Asthma Pud (Peptic Ulcer Disease) Endometriosis Menopause Right Shoulder Pain Iatrogenic Nely's Disease Hyperinflation of Lungs Cervicothoracic Somatic Dysfunction Rheumatoid Arthritis Involving Multiple Sites With Positive Rheumatoid Factor (Hcc) Adrenal Suppression (Hcc) Osteoporosis Current Chronic Use of Systemic Steroids Bullous Emphysema (Hcc) Current Outpatient Medications Medication Sig Dispense Refill alendronate (FOSAMAX) 70 mg tablet Take 1 tablet by mouth one time a week. Take with a full glass of water, on an empty stomach; do NOT lie down for 30minutes. 12 tablet 3 SUMAtriptan (IMITREX) 6 mg/0.5 mL kit Inject 0.5 mL subcutaneously as needed. 1 Each 5 docosahexaenoic acid/epa (FISH OIL ORAL) Take by mouth. folic acid 1 mg tablet Take 1 tablet by mouth twice daily. predniSONE (DELTASONE) 1 mg tablet Take 4 mg by mouth once daily. CALCIUM ORAL Take 600 mg by mouth twice daily. albuterol HFA (PROAIR HFA) 90 mcg/actuation inhaler Inhale 2 Puffs as instructed every 4 hours as needed. 1 Inhaler 1 ORENCIA CLICKJECT 125 mg/mL AutoInjector one time a week. BIOTIN ORAL Take by mouth. LEUCOVORIN CALCIUM ORAL Take 25 mg by mouth one time a week. Cholecalciferol, Vitamin D3, 1,000 unit cap Take 1,000 Units by mouth once daily. methotrexate 2.5 mg tablet Take 7 tablets by mouth every Tuesday. 0 No current facility-administered medications for this visit. Lung Cancer Screening Never done Mammogram Screening due on 11/13/2021 Hepatitis B Vaccine(2 of 3 - 19+ 3-dose series) due on 02/02/2023 Pap Testing due on 02/28/2023 HPV Testing due on 02/28/2023 EXAM: LMP 07/25/2013 Pleasant adult female in no acute distress. Alert and oriented all spheres. Normal affect and cognition. Speech normal. No deficits to learning or comprehension. Skin warm, dry, pink to lips and nailbeds. Normal turgor. Respirations regular and unlabored. Extrem: no clubbing or cyanosis. Edema: none. Extremities are warm and pink with prompt capillary refill. Left knee with moderate swelling pes anserine bursa with confirmation of this as pain locus. No pain or swelling left knee joint. Skin: Rash on dorsal side of both lower legs. Appears as patches of small erythematous l1mm petechial non-blanching macules, some fine dry silver scale generalized lower legs. ASSESSMENT/PLAN: 1. Pes anserine bursitis - ICD9: 726.61, ICD10: M70.50 (primary diagnosis) UNIVERSAL PROTOCOL / SAFETY CHECKLIST Procedure to be Performed: injection celestone pes anserine bursa left knee Sign In: A Moment of CARE was completed. Personnel directly involved with the procedure wore the appropriate PPE (Personal Protective Equipment). Patient/Surrogate Stated/Verified: PATIENT VERIFIED(optional for EMERGENT procedures): Patient name, Date of , Relevant cullen (more content not included)... [facility] 12-27-2022 Miscellaneous Notes Patient notified taken to med recs Please give my apologies for the delay, I hope it didn't cause inconvenience. Completed form Anthony Rice PA-C See pt Yattos message. TAL 07/02/22. Please advise. Joshua Wasserman LPN documented in this encounter [facility] 12-01-2022 Note Patient Outreach (IN [facility]) LEENA YIP ([id number]) 1965 F Date Time Provider Department 12/01/22 Solange KRUGER During your visit today, we recorded the following information about you: Allergies As of Date: 12/01/2022 Noted Allergy Reaction CLINDAMYCIN 05/21/2013 2 - Rash ASPIRIN 05/13/2012 14 - Other: See Comments Comments: Scratch test at a child. CIPROFLOXACIN 05/21/2013 2 - Rash 4 - Hives ERYTHROMYCIN 05/13/2012 11 - Vomiting [id number] (POLYETHYLENE GLYCOL 3350)01/20/2018 5 - Intolerance Comments: Nausea PENICILLINS 05/13/2012 14 - Other: See Comments Comments: Childhood allergy/cephalosporins are ok-has used in the past. Can take augmentin Date Reviewed: 05/12/2022 Reviewed by: Jenn Adames - Fully Assessed Visit Diagnosis:Encounter for screening mammogram for breast cancer [Z12.31] Order(s):[facility] SCREENING [facility]ASELI [[id number]] Order #: [id number] FUTURE Prescriptions as of 12/06/2022 - alendronate (FOSAMAX) 70 mg tablet Take 1 tablet by mouth one time a week. Take with a full glass of water, on an empty stomach; do NOT lie down for 30minutes. - SUMAtriptan (IMITREX) 6 mg/0.5 mL kit Inject 0.5 mL subcutaneously as needed. - docosahexaenoic acid/epa (FISH OIL ORAL) Take by mouth. - folic acid 1 mg tablet Take 1 tablet by mouth twice daily. - predniSONE (DELTASONE) 1 mg tablet Take 4 mg by mouth once daily. - CALCIUM ORAL Take 600 mg by mouth twice daily. - albuterol HFA (PROAIR HFA) 90 mcg/actuation inhaler Inhale 2 Puffs as instructed every 4 hours as needed. - ORENCIA CLICKJECT 125 mg/mL AutoInjector one time a week. - BIOTIN ORAL Take by mouth. - LEUCOVORIN CALCIUM ORAL Take 25 mg by mouth one time a week. - Cholecalciferol, Vitamin D3, 1,000 unit cap Take 1,000 Units by mouth once daily. - methotrexate 2.5 mg tablet Take 7 tablets by mouth every Tuesday. Meds Comments as of 04/12/2016: is tender remember Problem List As Of Date 12/01/2022 Noted Resolved Symptomatic menopausal or female climacteric st*02/27/2013 Migraine [G43.909] Asthma [J45.909] PUD (peptic ulcer disease) [K27.9] Endometriosis [N80.9] Menopause [Z78.0] Right shoulder pain [M25.511] 03/11/2014 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) [IVY7935] Hyperinflation of lungs [R09.89] 04/21/2016 Cervicothoracic somatic dysfunction [M99.01] 06/20/2018 Rheumatoid arthritis involving multiple sites w*11/27/2018 Adrenal suppression (HCC) [E27.49] 03/12/2019 Osteoporosis [M81.0] 03/29/2019 Current chronic use of systemic steroids [Z79.5*04/04/2019 Bullous emphysema (HCC) [J43.9] 02/18/2022 Encounter Status:Closed by [employer] on 12/06/22 [facility] 07-27-2022 Note HNO ID: [id number] Author: Solange Kruger PA-C Service: ? Author Type: Physician Patcher Type: Progress Notes Filed: 07/27/2022 5:40 PM Note Text: Orders Only on 07/27/22 LIPID PANEL BASIC See mychart message Anthony Kruger PA-C [facility] 07-02-2022 Note HNO ID: [id number] Author: Solange Kruger PA-C Service: ? Author Type: Physician Patcher Type: Progress Notes Filed: 07/02/2022 5:02 PM Note Text: 57 year old female with c/o dizziness sudden onset yesterday at work,. Had to sit down. B 139/89-76. Rested 30 minutes and went back to work. Barnard like rocking with her eyes closed. Got dizzy again, recheck BP 133/85-80. Stayed and finished shift. Has been fine since. Having more headaches than ever before in the past. Usually 4-5 in a year, already has had 5 since beginning of year, similar quality and severity as prior headaches. HISTORIES FAMILY HISTORY Problem Relation Age of Onset other (RA) Mother other (Hypothyroid) Mother other (chrones) Mother Cancer Father lung with brain mestastases Cancer Sister Thyroid PAST MEDICAL HISTORY Diagnosis Date Acute bronchitis with chronic obstructive pulmonary disease (COPD) (HCC) 04/21/2016 06/07/2018 CTA chest with and without contrast: Bilateral breast implants. Normal thoracic arteries and aorta. Hyperinflation, emphysematous changes with bullous formation in both lungs more prominent in upper lobes. Asthma Endometriosis Menopause Migraine PUD (peptic ulcer disease) in high school Rheumatoid arthritis (HCC) Dr. Sarah PAST SURGICAL HISTORY Procedure Laterality Date BREAST AUGMENTATION W/PROSTHETIC IMPLANT ELBOW SURGERY HX 07/14/2016, 11/10/2016 tendons and nerve torn from bone LAPAROSCOPY DIAGNOSTIC 1994 PAST SURGICAL HISTORY OF deviated septum/sinus PAST SURGICAL HISTORY OF impacted wisdom teeth Social History Tobacco Use Smoking status: Former Packs/day: 1.00 Years: 20.00 Pack years: 20.00 Types: Cigarettes Quit date: 04/14/2021 Years since quittin.2 Smokeless tobacco: Never Substance Use Topics Alcohol use: No Drug use: No ACTIVE PROBLEM LIST Symptomatic Menopausal Or Female Climacteric States Migraine Asthma Pud (Peptic Ulcer Disease) Endometriosis Menopause Right Shoulder Pain Iatrogenic [place]'s Disease (Hcc) Hyperinflation of Lungs Cervicothoracic Somatic Dysfunction Rheumatoid Arthritis Involving Multiple Sites With Positive Rheumatoid Factor (Hcc) Adrenal Suppression (Hcc) Osteoporosis Current Chronic Use of Systemic Steroids Bullous Emphysema (Hcc) Current Outpatient Medications Medication Sig Dispense Refill SUMAtriptan (IMITREX) 6 mg/0.5 mL kit Inject 0.5 mL subcutaneously as needed. 1 Each 5 docosahexaenoic acid/epa (FISH OIL ORAL) Take by mouth. folic acid 1 mg tablet Take 1 tablet by mouth twice daily. predniSONE (DELTASONE) 1 mg tablet Take 4 mg by mouth once daily. alendronate (FOSAMAX) 70 mg tablet Take 1 tablet by mouth one time a week. Take with a full glass of water, on an empty stomach; do NOT lie down for 30minutes. 12 tablet 3 CALCIUM ORAL Take 600 mg by mouth twice daily. albuterol HFA (PROAIR HFA) 90 mcg/actuation inhaler Inhale 2 Puffs as instructed every 4 hours as needed. 1 Inhaler 1 ORENCIA CLICKJECT 125 mg/mL AutoInjector one time a week. BIOTIN ORAL Take by mouth. LEUCOVORIN CALCIUM ORAL Take 25 mg by mouth one time a week. Cholecalciferol, Vitamin D3, 1,000 unit cap Take 1,000 Units by mouth once daily. methotrexate 2.5 mg tablet Take 7 tablets by mouth every Tuesday. 0 No current facility-administered medications for this visit. HEPATITIS C SCREENING Never done DTAP,TDAP,TD(1 - Tdap) Never done LUNG CANCER SCREENING Never done LIPID SCREEN due on 09/08/2017 MAMMOGRAM due on 11/13/2021 EXAM: BP 124/62 Pulse 76 Resp 16 LMP 07/25/2013 SpO2 97% Pleasant well appearing woman in no acute distress. Alert and oriented all spheres. Normal affect and cognition. Speech normal. No deficits to learning or comprehension. Skin warm, dry, pink to lips and nailbeds. Normal turgor. Respirations regular and unlabored. HEENT: NCAT. No scleral icterus or conjunctival injection. TM's clear. Nose and oropharynx free from injection or lesion. Oral membranes moist and pink. No cervical lymph nodes. Thyroid non-tender, no masses, or enlargement. Carotids pulses 2+/4+ without bruits. No JVD with HOB at 30 degrees. Chest is normal shape. Lungs are clear to all alcantar with good air exchange through out. HRRR without murmur or gallop. No lifts, heaves, or rubs. Extrem: no clubbing or cyanosis. Edema: none. Extremities are warm and pink with prompt capillary refill. Romberg negative. No pass pointing. Normal saccades. No focal weakness. Normal gait. ASSESSMENT/PLAN: 1. Dizziness - ICD9: 780.4, ICD10: R42 Push fluids. Notify if any recurrence Solange Kruger PA-C [facility] 07-02-2022 Instructions Solange Kruger PA-C - 07/02/2022 3:26 PM EDT Positional Vertigo What is positional vertigo? Positional vertigo is an inner ear problem. It causes brief but sometimes severe feelings of spinning. Some people feel that their head or body is spinning. Others feel the room is spinning. People often say they are dizzy, but dizzy is a very general term. Vertigo, on the other hand, is the very specific feeling of uncontrollable spinning. Positional vertigo happens suddenly when you change the position of your head. Another name for this problem is benign paroxysmal positional vertigo. How does it occur? In the inner part of your ear are 3 semicircular canals. Movement of the fluid in these canals helps your brain maintain your balance and know what position you are in (for example, standing up, lying down, or standing on your head). Sometimes small crystals of calcium develop and float in the fluid in the inner ear. This can happen after a head injury, with a severe cold, or simply as a part of normal aging. The crystals can cause vertigo when you change head position and they strike against nerve endings in the semicircular canals. Usually the calcium crystals dissolve in a few weeks and stop causing vertigo. However, sometimes the crystals do not dissolve and the vertigo returns from time to time. What are the symptoms? A sudden feeling that you are spinning, or that the room is spinning, is the main symptom. You may feel the vertigo when you first wake up. It may seem that any turn of your head brings on brief but intense spells of vertigo. It may happen when you tilt your head, look up or down, or roll over in bed. You may have nausea and vomiting along with the vertigo. Even if a spell of vertigo is brief, you may have a feeling of queasiness for several minutes or even hours afterward. How is it diagnosed? Your healthcare provider will ask about your symptoms and examine you. You may also be given a Becca-Hallpike position test. You start the Becca-Hallpike test by sitting upright on the examining table. Your healthcare provider slowly brings your head down over the edge of the table and turns your head to one side. If you have positional vertigo, your provider will see your eyes making fast, jerky movements called nystagmus. If no nystagmus is seen, your provider will repeat the test, this time turning your head to the opposite side, to test the other inner ear. If you then have nystagmus and vertigo, the ear that is pointing toward the floor is the one causing the problem. The nystagmus and vertigo will slow down and stop after 15 to 20 seconds. If you do not move your head, no more symptoms will occur. When you sit back up, you will have vertigo again, but for a shorter time. Other tests you may have are: an ear exam an audiogram to check your hearing a test of your nerve responses an electronystagmogram (ENG) test. How is it treated? Mild vertigo is often treated with medicine. The most common medicine for this problem is meclizine. It is taken up to 4 times a day for the vertigo and nausea or vomiting. One of the problems with this medicine is that it causes drowsiness. This is not as much of a problem if you have severe vertigo, which usually requires bed rest. Then the medicine can help you sleep and get relief from the vertigo while you sleep. Your healthcare provider may recommend techniques that use gravity to move the crystals away from the nerve endings into an area of the inner ear that won't cause any problems. These are called repositioning techniques. One repositioning technique is the Danuta maneuver. It can be very helpful. Your healthcare provider will move your head into 4 positions. You will hold each position for about 30 seconds. Your healthcare provider may also suggest that you do Rajan-Daroff exercises. Your provider may recommend that you do these exercises 3 times a day for 2 weeks. To do these exercises: Start by sitting upright on your bed. Lie on your left side, with your head angled upward about mcc. (Imagine that you are looking at the head of someone standing about 6 feet in front of you.) Stay in this position for 30 seconds, or, if you are having vertigo, until the vertigo stops. Return to the sitting position for 30 seconds. Lie on your right side, and follow the same routine. Your healthcare provider may refer you to a physical therapist to learn and practice these repositioning techniques. Rarely, when repositioning techniques don't help and the vertigo has not gone away after a few weeks, severe cases may eventually require surgery. How long will the effects last? Even without treatment, positional vertigo usually goes away within several weeks. Sometimes it recurs despite treatment. How do I take care of myself? If your vertigo is mild, you may be able to continue your usual activities, especially if you have opportunities to sit and rest when you have vertigo. If your vertigo does not allow you to continue your usual routine, you should rest at home. Use medicine as prescribed by your healthcare provider to help stop symptoms of dizziness, nausea, and vomiting. Follow your instructions for using the repositioning techniques. Do not try to drive, operate tools or machinery, or do other tasks, even cooking, that could endanger yourself or others if you suddenly become dizzy. Follow your healthcare provider's recommendations for follow-up visits. Contact your healthcare provider if: Your symptoms seem to be getting worse, more frequent, or longer lasting. You develop new symptoms, such as a loss of hearing or severe headache. Published by [employer]. This content is reviewed periodically and is subject to change as new health information becomes available. The information is intended to inform and educate and is not a replacement for medical evaluation, advice, diagnosis or treatment by a healthcare professional. Developed by [employer] Copyright 2007 [employer] and/or one of its subsidiaries. All Rights Reserved. Copyright [employer] 2007 [employer] Copyright 2007 [employer]. All rights reserved. - www.[facility] documented in this encounter [facility] 07-02-2022 History of Present illness Narrative 57 year old female with c/o dizziness sudden onset yesterday at work,. Had to sit down. B 139/89-76. Rested 30 minutes and went back to work. Barnard like rocking with her eyes closed. Got dizzy again, recheck BP 133/85-80. Stayed and finished shift. Has been fine since. Having more headaches than ever before in the past. Usually 4-5 in a year, already has had 5 since beginning of year, similar quality and severity as prior headaches. HISTORIES FAMILY HISTORY Problem Relation Age of Onset other (RA) Mother other (Hypothyroid) Mother other (chrones) Mother Cancer Father lung with brain mestastases Cancer Sister Thyroid PAST MEDICAL HISTORY Diagnosis Date Acute bronchitis with chronic obstructive pulmonary disease (COPD) (HCC) 04/21/2016 06/07/2018 CTA chest with and without contrast: Bilateral breast implants. Normal thoracic arteries and aorta. Hyperinflation, emphysematous changes with bullous formation in both lungs more prominent in upper lobes. Asthma Endometriosis Menopause Migraine PUD (peptic ulcer disease) in high school Rheumatoid arthritis (HCC) Dr. Sarah PAST SURGICAL HISTORY Procedure Laterality Date BREAST AUGMENTATION W/PROSTHETIC IMPLANT ELBOW SURGERY HX 07/14/2016, 11/10/2016 tendons and nerve torn from bone LAPAROSCOPY DIAGNOSTIC 1994 PAST SURGICAL HISTORY OF deviated septum/sinus PAST SURGICAL HISTORY OF impacted wisdom teeth Social History Tobacco Use Smoking status: Former Packs/day: 1.00 Years: 20.00 Pack years: 20.00 Types: Cigarettes Quit date: 04/14/2021 Years since quittin.2 Smokeless tobacco: Never Substance Use Topics Alcohol use: No Drug use: No ACTIVE PROBLEM LIST Symptomatic Menopausal Or Female Climacteric States Migraine Asthma Pud (Peptic Ulcer Disease) Endometriosis Menopause Right Shoulder Pain Iatrogenic Nely's Disease (Hcc) Hyperinflation of Lungs Cervicothoracic Somatic Dysfunction Rheumatoid Arthritis Involving Multiple Sites With Positive Rheumatoid Factor (Hcc) Adrenal Suppression (Hcc) Osteoporosis Current Chronic Use of Systemic Steroids Bullous Emphysema (Hcc) Current Outpatient Medications Medication Sig Dispense Refill SUMAtriptan (IMITREX) 6 mg/0.5 mL kit Inject 0.5 mL subcutaneously as needed. 1 Each 5 docosahexaenoic acid/epa (FISH OIL ORAL) Take by mouth. folic acid 1 mg tablet Take 1 tablet by mouth twice daily. predniSONE (DELTASONE) 1 mg tablet Take 4 mg by mouth once daily. alendronate (FOSAMAX) 70 mg tablet Take 1 tablet by mouth one time a week. Take with a full glass of water, on an empty stomach; do NOT lie down for 30minutes. 12 tablet 3 CALCIUM ORAL Take 600 mg by mouth twice daily. albuterol HFA (PROAIR HFA) 90 mcg/actuation inhaler Inhale 2 Puffs as instructed every 4 hours as needed. 1 Inhaler 1 ORENCIA CLICKJECT 125 mg/mL AutoInjector one time a week. BIOTIN ORAL Take by mouth. LEUCOVORIN CALCIUM ORAL Take 25 mg by mouth one time a week. Cholecalciferol, Vitamin D3, 1,000 unit cap Take 1,000 Units by mouth once daily. methotrexate 2.5 mg tablet Take 7 tablets by mouth every Tuesday. 0 No current facility-administered medications for this visit. HEPATITIS C SCREENING Never done DTAP,TDAP,TD(1 - Tdap) Never done LUNG CANCER SCREENING Never done LIPID SCREEN due on 09/08/2017 MAMMOGRAM due on 11/13/2021 EXAM: BP 124/62 Pulse 76 Resp 16 LMP 07/25/2013 SpO2 97% Pleasant well appearing woman in no acute distress. Alert and oriented all spheres. Normal affect and cognition. Speech normal. No deficits to learning or comprehension. Skin warm, dry, pink to lips and nailbeds. Normal turgor. Respirations regular and unlabored. HEENT: NCAT. No scleral icterus or conjunctival injection. TM's clear. Nose and oropharynx free from injection or lesion. Oral membranes moist and pink. No cervical lymph nodes. Thyroid non-tender, no masses, or enlargement. Carotids pulses 2+/4+ without bruits. No JVD with HOB at 30 degrees. Chest is normal shape. Lungs are clear to all alcantar with good air exchange through out. HRRR without murmur or gallop. No lifts, heaves, or rubs. Extrem: no clubbing or cyanosis. Edema: none. Extremities are warm and pink with prompt capillary refill. Romberg negative. No pass pointing. Normal saccades. No focal weakness. Normal gait. ASSESSMENT/PLAN: 1. Dizziness - ICD9: 780.4, ICD10: R42 Push fluids. Notify if any recurrence Solange Kruger PA-C documented in this encounter [facility] 07-01-2022 Miscellaneous Notes Patient call in for dizziness. Nurse Triage assessment completed with protocol recommending for disposition of See PCP in 3 days. Patient sent up appointment with Anthony tomorrow afternoon Care advice reviewed with patient, patient stated understanding. Patient advised to contact office or seek evaluation in ER if symptoms persist or gets worse. Reason for Disposition [1] MILD dizziness (e.g., walking normally) AND [2] has NOT been evaluated by physician for this (Exception: dizziness caused by heat exposure, sudden standing, or poor fluid intake) Answer Assessment - Initial Assessment Questions 1. DESCRIPTION: Feels like everything is wavy 2. LIGHTHEADED: faint 3. VERTIGO: Denies 4. SEVERITY: Mild 5. ONSET: An Hour Ago 6. AGGRAVATING FACTORS: Denies 7. HEART RATE: 80 8. CAUSE: What do you think is causing the dizziness? Unsure 9. RECURRENT SYMPTOM: Denies 10. OTHER SYMPTOMS: 1 hour ago patient's blood pressure was 131/89 HR 76; At 1145 blood pressures was 133/85 HR 80 Protocols used: Dizziness - [id number] documented in this encounter [facility] 06-01-2022 Note HNO ID: [id number] Author: Solange Kruger PA-C Service: ? Author Type: Physician Patcher Type: Progress Notes Filed: 06/01/2022 6:21 PM Note Text: 56 year old female with c/o persistent URI sx since 05/01/2022. 05/03/22 EC visit: + [id number], negative flu and strep, Rx benonatate 05/06/2022 distance health visit me: doubled steroids 05/12/2022 EC visit persistent sx: Diaphoresis, fatigue, congestion, postnasal drip, sinus pressure, sinus pain, cough productive of clear mucus, chest tightness and shortness of breath with cough. No prescriptions were given. Was feeling about 80% better and then declined Feels fatigued. Stuffy, sore throat on waking Pulse in left eye Pain right ear. Face is tender. Taking Dayquil last 4 days. If doesn't, can't breathe through nose. Little cough. No fever. HISTORIES FAMILY HISTORY Problem Relation Age of Onset other (RA) Mother other (Hypothyroid) Mother other (chrones) Mother Cancer Father lung with brain mestastases Cancer Sister Thyroid PAST MEDICAL HISTORY Diagnosis Date Acute bronchitis with chronic obstructive pulmonary disease (COPD) (HCC) 04/21/2016 06/07/2018 CTA chest with and without contrast: Bilateral breast implants. Normal thoracic arteries and aorta. Hyperinflation, emphysematous changes with bullous formation in both lungs more prominent in upper lobes. Asthma Endometriosis Menopause Migraine PUD (peptic ulcer disease) in high school Rheumatoid arthritis (HCC) Dr. Sarah PAST SURGICAL HISTORY Procedure Laterality Date BREAST AUGMENTATION W/PROSTHETIC IMPLANT ELBOW SURGERY HX 07/14/2016, 11/10/2016 tendons and nerve torn from bone LAPAROSCOPY DIAGNOSTIC 1994 PAST SURGICAL HISTORY OF deviated septum/sinus PAST SURGICAL HISTORY OF impacted wisdom teeth Social History Tobacco Use Smoking status: Former Packs/day: 1.00 Years: 20.00 Pack years: 20.00 Types: Cigarettes Quit date: 04/14/2021 Years since quittin.1 Smokeless tobacco: Never Substance Use Topics Alcohol use: No Drug use: No ACTIVE PROBLEM LIST Symptomatic Menopausal Or Female Climacteric States Migraine Asthma Pud (Peptic Ulcer Disease) Endometriosis Menopause Right Shoulder Pain Iatrogenic Nely's Disease (Hcc) Hyperinflation of Lungs Cervicothoracic Somatic Dysfunction Rheumatoid Arthritis Involving Multiple Sites With Positive Rheumatoid Factor (Hcc) Adrenal Suppression (Hcc) Osteoporosis Current Chronic Use of Systemic Steroids Bullous Emphysema (Hcc) Current Outpatient Medications Medication Sig Dispense Refill SUMAtriptan (IMITREX) 6 mg/0.5 mL kit Inject 0.5 mL subcutaneously as needed. 1 Each 5 docosahexaenoic acid/epa (FISH OIL ORAL) Take by mouth. folic acid 1 mg tablet Take 1 tablet by mouth twice daily. predniSONE (DELTASONE) 1 mg tablet Take 4 mg by mouth once daily. alendronate (FOSAMAX) 70 mg tablet Take 1 tablet by mouth one time a week. Take with a full glass of water, on an empty stomach; do NOT lie down for 30minutes. 12 tablet 3 CALCIUM ORAL Take 600 mg by mouth twice daily. albuterol HFA (PROAIR HFA) 90 mcg/actuation inhaler Inhale 2 Puffs as instructed every 4 hours as needed. 1 Inhaler 1 ORENCIA CLICKJECT 125 mg/mL AutoInjector one time a week. BIOTIN ORAL Take by mouth. LEUCOVORIN CALCIUM ORAL Take 25 mg by mouth one time a week. Cholecalciferol, Vitamin D3, 1,000 unit cap Take 1,000 Units by mouth once daily. methotrexate 2.5 mg tablet Take 7 tablets by mouth every Tuesday. 0 No current facility-administered medications for this visit. HEPATITIS C SCREENING Never done DTAP,TDAP,TD(1 - Tdap) Never done LUNG CANCER SCREENING Never done LIPID SCREEN due on 09/08/2017 MAMMOGRAM due on 11/13/2021 EXAM: BP 110/68 Pulse 71 Resp 16 LMP 07/25/2013 SpO2 100% Pleasant well appearing adult woman in no acute distress. Alert and oriented all spheres. Normal affect and cognition. Speech normal. No deficits to learning or comprehension. Skin warm, dry, pink to lips and nailbeds. Normal turgor. Respirations regular and unlabored. HEENT: NCAT. No scleral icterus or conjunctival injection. TM's clear. Nose and oropharynx free from injection or lesion. Oral membranes moist and pink. No cervical lymph nodes. Thyroid non-tender, no masses, or enlargement. Carotids pulses 2+/4+ without bruits. No JVD with HOB at 30 degrees. Chest is normal shape. Lungs are clear to all alcantar with good air exchange through out. HRRR without murmur or gallop. No lifts, heaves, or rubs. Extrem: no clubbing or cyanosis. Edema: none. Extremities are warm and pink with prompt capillary refill. ASSESSMENT/PLAN: 1. Bacterial sinusitis - ICD9: 473.9, 041.9, ICD10: J32.9, B96.89 - Will begin treatment with Bactrim DS BID 10 days due to immunosuppression. Will hold MTX and Orencia until better. - SULFAMETHOXAZOLE 800 MG-TRIMETHOPRIM 160 MG TABLET F/u (more content not included)... [facility] 06-01-2022 Instructions M Emeterio Kruger PA-C - 06/01/2022 5:12 PM EDT Bactrim DS is a sulfa based antibiotic. Please take it as directed. If you should breakout in a rash, stop the medicine and call the office. Any antibiotic has the potential to cause diarrhea due to alteration in the normal bacterial andrey of the gut. This can be reduced by eating yogurt with active cultures daily while on the medication. If diarrhea becomes severe (watery, large volumes or more than 3-4/day) call the office. If you do not like yogurt, ask the pharmacist for a probiotic supplement such as lactobacillus or acidophillus. Women may experience yeast vaginitis due to alteration in the vaginal andrey. Symptoms include vaginal itching, irritation, and often a clumpy white discharge. If this occurs, there are several effective over the counter remedies available, including one-dose treatments. If these are unsuccessful, call the office. Antibiotics may interfer with control. If you are on oral contraceptives, use another form of protection (condoms, foams, jellies, diaphragm) throught the end of whatever pill pack you are on in 10 days. Hold MTX and Orencia until illness clears. If fever, worsening call me right away. documented in this encounter [facility] 06-01-2022 History of Present illness Narrative 56 year old female with c/o persistent URI sx since 05/01/2022. 05/03/22 EC visit: + [id number], negative flu and strep, Rx benonatate 05/06/2022 distance health visit me: doubled steroids 05/12/2022 EC visit persistent sx: Diaphoresis, fatigue, congestion, postnasal drip, sinus pressure, sinus pain, cough productive of clear mucus, chest tightness and shortness of breath with cough. No prescriptions were given. Was feeling about 80% better and then declined Feels fatigued. Stuffy, sore throat on waking Pulse in left eye Pain right ear. Face is tender. Taking Dayquil last 4 days. If doesn't, can't breathe through nose. Little cough. No fever. HISTORIES FAMILY HISTORY Problem Relation Age of Onset other (RA) Mother other (Hypothyroid) Mother other (chrones) Mother Cancer Father lung with brain mestastases Cancer Sister Thyroid PAST MEDICAL HISTORY Diagnosis Date Acute bronchitis with chronic obstructive pulmonary disease (COPD) ([facility]) 04/21/2016 06/07/2018 CTA chest with and without contrast: Bilateral breast implants. Normal thoracic arteries and aorta. Hyperinflation, emphysematous changes with bullous formation in both lungs more prominent in upper lobes. Asthma Endometriosis Menopause Migraine PUD (peptic ulcer disease) in high school Rheumatoid arthritis (HCC) Dr. Sarah PAST SURGICAL HISTORY Procedure Laterality Date BREAST AUGMENTATION W/PROSTHETIC IMPLANT ELBOW SURGERY HX 07/14/2016, 11/10/2016 tendons and nerve torn from bone LAPAROSCOPY DIAGNOSTIC 1994 PAST SURGICAL HISTORY OF deviated septum/sinus PAST SURGICAL HISTORY OF impacted wisdom teeth Social History Tobacco Use Smoking status: Former Packs/day: 1.00 Years: 20.00 Pack years: 20.00 Types: Cigarettes Quit date: 04/14/2021 Years since quittin.1 Smokeless tobacco: Never Substance Use Topics Alcohol use: No Drug use: No ACTIVE PROBLEM LIST Symptomatic Menopausal Or Female Climacteric States Migraine Asthma Pud (Peptic Ulcer Disease) Endometriosis Menopause Right Shoulder Pain Iatrogenic Nely's Disease (Hcc) Hyperinflation of Lungs Cervicothoracic Somatic Dysfunction Rheumatoid Arthritis Involving Multiple Sites With Positive Rheumatoid Factor (Hcc) Adrenal Suppression (Hcc) Osteoporosis Current Chronic Use of Systemic Steroids Bullous Emphysema (Hcc) Current Outpatient Medications Medication Sig Dispense Refill SUMAtriptan (IMITREX) 6 mg/0.5 mL kit Inject 0.5 mL subcutaneously as needed. 1 Each 5 docosahexaenoic acid/epa (FISH OIL ORAL) Take by mouth. folic acid 1 mg tablet Take 1 tablet by mouth twice daily. predniSONE (DELTASONE) 1 mg tablet Take 4 mg by mouth once daily. alendronate (FOSAMAX) 70 mg tablet Take 1 tablet by mouth one time a week. Take with a full glass of water, on an empty stomach; do NOT lie down for 30minutes. 12 tablet 3 CALCIUM ORAL Take 600 mg by mouth twice daily. albuterol HFA (PROAIR HFA) 90 mcg/actuation inhaler Inhale 2 Puffs as instructed every 4 hours as needed. 1 Inhaler 1 ORENCIA CLICKJECT 125 mg/mL AutoInjector one time a week. BIOTIN ORAL Take by mouth. LEUCOVORIN CALCIUM ORAL Take 25 mg by mouth one time a week. Cholecalciferol, Vitamin D3, 1,000 unit cap Take 1,000 Units by mouth once daily. methotrexate 2.5 mg tablet Take 7 tablets by mouth every Tuesday. 0 No current facility-administered medications for this visit. HEPATITIS C SCREENING Never done DTAP,TDAP,TD(1 - Tdap) Never done LUNG CANCER SCREENING Never done LIPID SCREEN due on 09/08/2017 MAMMOGRAM due on 11/13/2021 EXAM: BP 110/68 Pulse 71 Resp 16 LMP 07/25/2013 SpO2 100% Pleasant well appearing adult woman in no acute distress. Alert and oriented all spheres. Normal affect and cognition. Speech normal. No deficits to learning or comprehension. Skin warm, dry, pink to lips and nailbeds. Normal turgor. Respirations regular and unlabored. HEENT: NCAT. No scleral icterus or conjunctival injection. TM's clear. Nose and oropharynx free from injection or lesion. Oral membranes moist and pink. No cervical lymph nodes. Thyroid non-tender, no masses, or enlargement. Carotids pulses 2+/4+ without bruits. No JVD with HOB at 30 degrees. Chest is normal shape. Lungs are clear to all alcantar with good air exchange through out. HRRR without murmur or gallop. No lifts, heaves, or rubs. Extrem: no clubbing or cyanosis. Edema: none. Extremities are warm and pink with prompt capillary refill. ASSESSMENT/PLAN: 1. Bacterial sinusitis - ICD9: 473.9, 041.9, ICD10: J32.9, B96.89 - Will begin treatment with Bactrim DS BID 10 days due to immunosuppression. Will hold MTX and Orencia until better. - SULFAMETHOXAZOLE 800 MG-TRIMETHOPRIM 160 MG TABLET F/u prn Solange Kruger PA-C documented in this encounter [facility] 05-12-2022 Miscellaneous Notes The following approved medication requests have been transmitted electronically. Requested Prescriptions Signed Prescriptions Disp Refills SUMAtriptan (IMITREX) 6 mg/0.5 mL kit 1 Each 5 Sig: Inject 0.5 mL subcutaneously as needed. Authorizing Provider: Solange KRUGER PA-C documented in this encounter [facility] 05-12-2022 Note HNO ID: [id number] Author: Maria Elena Bueno APRN.CREW MANAGER Service: ? Author Type: Nurse Practitioner Type: Progress Notes Filed: 05/12/2022 9:07 AM Note Text: This note was created using [employer]. Subjective Leena Yip is a 56 year old female who presents for recent COVID-19 infection (dx: 05/03) with ongoing fatigue, cough and congestion. Patient reports that she feel like she shouldn't be sick anymore . She completed telehealth visit with PCP a week ago where her Prednisone dose was increased to 8mg. Reports that she took 10mg this morning to which her chest feels a little better this morning. She has been taking daily Dayquil (x10 days) which has helped symptoms including malaise as well as Benzonatate as needed for only a few days which helped her cough. Reports taking Sinex yesterday in hopes to help new onset sinus pressure but had little relief. Overall she still feels tired and has a productive cough with clear sputum but she is feeling better than what she was including no sore throat. Hx of asthma controled by albuterol. Has not had to use except for one administration last week. Review of Systems Constitutional: Positive for diaphoresis and fatigue. Negative for chills and fever. HENT: Positive for congestion, postnasal drip, sinus pressure and sinus pain. Negative for ear pain, rhinorrhea and sore throat. Eyes: Negative for visual disturbance. Respiratory: Positive for cough (productive. clear), chest tightness and shortness of breath (with cough). Negative for wheezing. Cardiovascular: Negative for chest pain and palpitations. Gastrointestinal: Negative for abdominal pain, nausea and vomiting. Musculoskeletal: Positive for neck stiffness. Skin: Negative for rash. Neurological: Positive for headaches (bilateral frontal and neck. 4/10. Constant, dull.). PAST MEDICAL HISTORY Diagnosis Date Acute bronchitis with chronic obstructive pulmonary disease (COPD) ([facility]) 04/21/2016 06/07/2018 CTA chest with and without contrast: Bilateral breast implants. Normal thoracic arteries and aorta. Hyperinflation, emphysematous changes with bullous formation in both lungs more prominent in upper lobes. Asthma Endometriosis Menopause Migraine PUD (peptic ulcer disease) in high school Rheumatoid arthritis ([facility]) Dr. Sarah PAST SURGICAL HISTORY Procedure Laterality Date BREAST AUGMENTATION W/PROSTHETIC IMPLANT ELBOW SURGERY HX 07/14/2016, 11/10/2016 tendons and nerve torn from bone LAPAROSCOPY DIAGNOSTIC 1994 PAST SURGICAL HISTORY OF deviated septum/sinus PAST SURGICAL HISTORY OF impacted wisdom teeth ALLERGIES Clindamycin, Aspirin, Ciprofloxacin, Erythromycin, [id number] [Polyethylene Glycol 3350], and Penicillins MEDICATIONS SUMAtriptan Succinate (IMITREX STAT) 6 mg/0.5 mL cartridge Inject 0.5 mL subcutaneously once daily as needed. migraine benzonatate (TESSALON PERLE) 100 mg capsule Take 2 capsules by mouth three times daily as needed for up to 10 days. docosahexaenoic acid/epa (FISH OIL ORAL) Take by mouth. folic acid 1 mg tablet Take 1 tablet by mouth twice daily. predniSONE (DELTASONE) 1 mg tablet Take 4 mg by mouth once daily. alendronate (FOSAMAX) 70 mg tablet Take 1 tablet by mouth one time a week. Take with a full glass of water, on an empty stomach; do NOT lie down for 30minutes. CALCIUM ORAL Take 600 mg by mouth twice daily. albuterol HFA (PROAIR HFA) 90 mcg/actuation inhaler Inhale 2 Puffs as instructed every 4 hours as needed. ORENCIA CLICKJECT 125 mg/mL AutoInjector one time a week. BIOTIN ORAL Take by mouth. LEUCOVORIN CALCIUM ORAL Take 25 mg by mouth one time a week. Cholecalciferol, Vitamin D3, 1,000 unit cap Take 1,000 Units by mouth once daily. methotrexate 2.5 mg tablet Take 7 tablets by mouth every Tuesday. FAMILY HISTORY Problem Relation Age of Onset other (RA) Mother other (Hypothyroid) Mother other (chrones) Mother Cancer Father lung with brain mestastases Cancer Sister Thyroid Social History Tobacco Use Smoking status: Former Packs/day: 1.00 Years: 20.00 Pack years: 20.00 Types: Cigarettes Quit date: 04/14/2021 Years since quittin.0 Smokeless tobacco: Never Substance Use Topics Alcohol use: No Drug use: No Objective BP 122/80 Pulse 74 Temp 36.5 ?C (97.7 ?F) Resp 16 Wt 49 kg (108 lb) LMP 07/25/2013 SpO2 98% BMI 20.39 kg/m? Physical Exam Vitals reviewed. Constitutional: General: She is not in acute distress. Appearance: Normal appearance. She is not ill-appearing. HENT: Head: Normocephalic and atraumatic. Right Ear: There is impacted cerumen. Left Ear: Tympanic membrane, ear canal and external ear normal. Nose: No congestion or rhinorrhea. Mouth/Throat: Mouth: Mucous membranes are moist. Pharynx: Oropharynx is clear. No oropharyngeal exudate or posterior oropharyngeal erythema. Eyes: General: No scleral icterus. Neck: Meningeal: Bru (more content not included)... [facility] 05-06-2022 Note HNO ID: [id number] Author: Solange Kruger PA-C Service: ? Author Type: Physician Patcher Type: Progress Notes Filed: 05/06/2022 8:45 AM Note Text: MyChart video visit was used for evaluation of this patient. Location of patient: [place] Patient was offered a virtual/telemedicine appointment in lieu of an office visit due to recommendations to reduce patient exposure to COVID-19. Patient is aware of limitations of performing the visit without a face to face visit in the office setting and agrees. 8:00 AM 56 year old female with c/o urgent care follow-up for cough, positive for SARS-CoV-2. Negative for flu, negative for strep. Patient was given benzonatate 100 mg capsules for cough. Symptoms reported at the visit: Chills, headache, nasal congestion, sore throat, myalgias, nausea, vomiting. Terrible sore throat and backache. Negative for loss of taste or smell, shortness of breath, difficulty breathing, diarrhea. Currently improving. Throat still sore but nothing like it was. Back still aches but nothing like it was. HISTORIES FAMILY HISTORY Problem Relation Age of Onset other (RA) Mother other (Hypothyroid) Mother other (chrones) Mother Cancer Father lung with brain mestastases Cancer Sister Thyroid PAST MEDICAL HISTORY Diagnosis Date Acute bronchitis with chronic obstructive pulmonary disease (COPD) (HCC) 04/21/2016 06/07/2018 CTA chest with and without contrast: Bilateral breast implants. Normal thoracic arteries and aorta. Hyperinflation, emphysematous changes with bullous formation in both lungs more prominent in upper lobes. Asthma Endometriosis Menopause Migraine PUD (peptic ulcer disease) in high school Rheumatoid arthritis ([facility]) Dr. Sarah PAST SURGICAL HISTORY Procedure Laterality Date BREAST AUGMENTATION W/PROSTHETIC IMPLANT ELBOW SURGERY HX 07/14/2016, 11/10/2016 tendons and nerve torn from bone LAPAROSCOPY DIAGNOSTIC 1994 PAST SURGICAL HISTORY OF deviated septum/sinus PAST SURGICAL HISTORY OF impacted wisdom teeth Social History Tobacco Use Smoking status: Former Packs/day: 1.00 Years: 20.00 Pack years: 20.00 Types: Cigarettes Quit date: 04/14/2021 Years since quittin.0 Smokeless tobacco: Never Substance Use Topics Alcohol use: No Drug use: No ACTIVE PROBLEM LIST Symptomatic Menopausal Or Female Climacteric States Migraine Asthma Pud (Peptic Ulcer Disease) Endometriosis Menopause Right Shoulder Pain 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 migraine 1 mL 5 benzonatate (TESSALON PERLE) 100 mg capsule Take 2 capsules by mouth three times daily as needed for up to 10 days. 60 capsule 0 docosahexaenoic acid/epa (FISH OIL ORAL) Take by mouth. folic acid 1 mg tablet Take 1 tablet by mouth twice daily. predniSONE (DELTASONE) 1 mg tablet Take 4 mg by mouth once daily. alendronate (FOSAMAX) 70 mg tablet Take 1 tablet by mouth one time a week. Take with a full glass of water, on an empty stomach; do NOT lie down for 30minutes. 12 tablet 3 CALCIUM ORAL Take 600 mg by mouth twice daily. albuterol HFA (PROAIR HFA) 90 mcg/actuation inhaler Inhale 2 Puffs as instructed every 4 hours as needed. 1 Inhaler 1 ORENCIA CLICKJECT 125 mg/mL AutoInjector one time a week. BIOTIN ORAL Take by mouth. LEUCOVORIN CALCIUM ORAL Take 25 mg by mouth one time a week. Cholecalciferol, Vitamin D3, 1,000 unit cap Take 1,000 Units by mouth once daily. methotrexate 2.5 mg tablet Take 7 tablets by mouth every Tuesday. 0 No current facility-administered medications for this visit. HEPATITIS C SCREENING Never done DTAP,TDAP,TD(1 - Tdap) Never done LUNG CANCER SCREENING Never done LIPID SCREEN due on 09/08/2017 MAMMOGRAM due on 11/13/2021 EXAM: LMP 07/25/2013 Pleasant well appearing adult woman in no acute distress. Alert and oriented all spheres. Normal affect and cognition. Speech normal. No deficits to learning or comprehension. No sclearal icterus or conjunctival injection. [place] to lips, moist oral membranes. Respirations regular and unlabored. No cough or congestion noted in visit ASSESSMENT/PLAN: 1. Upper respiratory tract infection due to COVID-19 virus - ICD9: 465.9, 079.89, ICD10: U07.1, J06.9 - Discussed viral etiology and rationale for treatment. - Symptomatic treatment with prn analgesia - Supportive care with fluids and rest - double steroids for a week to 8mg and then back to usual once feeling better. Reviewed options for antivirals, monoclonals: does not want (more content not included)... [facility] 05-06-2022 History of Present illness Narrative [place] video visit was used for evaluation of this patient. Location of patient: [place] Patient was offered a virtual/telemedicine appointment in lieu of an office visit due to recommendations to reduce patient exposure to COVID-19. Patient is aware of limitations of performing the visit without a face to face visit in the office setting and agrees. 8:00 AM 56 year old female with c/o urgent care follow-up for cough, positive for SARS-CoV-2. Negative for flu, negative for strep. Patient was given benzonatate 100 mg capsules for cough. Symptoms reported at the visit: Chills, headache, nasal congestion, sore throat, myalgias, nausea, vomiting. Terrible sore throat and backache. Negative for loss of taste or smell, shortness of breath, difficulty breathing, diarrhea. Currently improving. Throat still sore but nothing like it was. Back still aches but nothing like it was. HISTORIES FAMILY HISTORY Problem Relation Age of Onset other (RA) Mother other (Hypothyroid) Mother other (chrones) Mother Cancer Father lung with brain mestastases Cancer Sister Thyroid PAST MEDICAL HISTORY Diagnosis Date Acute bronchitis with chronic obstructive pulmonary disease (COPD) ([facility]) 04/21/2016 06/07/2018 CTA chest with and without contrast: Bilateral breast implants. Normal thoracic arteries and aorta. Hyperinflation, emphysematous changes with bullous formation in both lungs more prominent in upper lobes. Asthma Endometriosis Menopause Migraine PUD (peptic ulcer disease) in high school Rheumatoid arthritis (HCC) Dr. Sarah PAST SURGICAL HISTORY Procedure Laterality Date BREAST AUGMENTATION W/PROSTHETIC IMPLANT ELBOW SURGERY HX 07/14/2016, 11/10/2016 tendons and nerve torn from bone LAPAROSCOPY DIAGNOSTIC 1994 PAST SURGICAL HISTORY OF deviated septum/sinus PAST SURGICAL HISTORY OF impacted wisdom teeth Social History Tobacco Use Smoking status: Former Packs/day: 1.00 Years: 20.00 Pack years: 20.00 Types: Cigarettes Quit date: 04/14/2021 Years since quittin.0 Smokeless tobacco: Never Substance Use Topics Alcohol use: No Drug use: No ACTIVE PROBLEM LIST Symptomatic Menopausal Or Female Climacteric States Migraine Asthma Pud (Peptic Ulcer Disease) Endometriosis Menopause Right Shoulder Pain 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 migraine 1 mL 5 benzonatate (TESSALON PERLE) 100 mg capsule Take 2 capsules by mouth three times daily as needed for up to 10 days. 60 capsule 0 docosahexaenoic acid/epa (FISH OIL ORAL) Take by mouth. folic acid 1 mg tablet Take 1 tablet by mouth twice daily. predniSONE (DELTASONE) 1 mg tablet Take 4 mg by mouth once daily. alendronate (FOSAMAX) 70 mg tablet Take 1 tablet by mouth one time a week. Take with a full glass of water, on an empty stomach; do NOT lie down for 30minutes. 12 tablet 3 CALCIUM ORAL Take 600 mg by mouth twice daily. albuterol HFA (PROAIR HFA) 90 mcg/actuation inhaler Inhale 2 Puffs as instructed every 4 hours as needed. 1 Inhaler 1 ORENCIA CLICKJECT 125 mg/mL AutoInjector one time a week. BIOTIN ORAL Take by mouth. LEUCOVORIN CALCIUM ORAL Take 25 mg by mouth one time a week. Cholecalciferol, Vitamin D3, 1,000 unit cap Take 1,000 Units by mouth once daily. methotrexate 2.5 mg tablet Take 7 tablets by mouth every Tuesday. 0 No current facility-administered medications for this visit. HEPATITIS C SCREENING Never done DTAP,TDAP,TD(1 - Tdap) Never done LUNG CANCER SCREENING Never done LIPID SCREEN due on 09/08/2017 MAMMOGRAM due on 11/13/2021 EXAM: LMP 07/25/2013 Pleasant well appearing adult woman in no acute distress. Alert and oriented all spheres. Normal affect and cognition. Speech normal. No deficits to learning or comprehension. No sclearal icterus or conjunctival injection. [place] to lips, moist oral membranes. Respirations regular and unlabored. No cough or congestion noted in visit ASSESSMENT/PLAN: 1. Upper respiratory tract infection due to COVID-19 virus - ICD9: 465.9, 079.89, ICD10: U07.1, J06.9 - Discussed viral etiology and rationale for treatment. - Symptomatic treatment with prn analgesia - Supportive care with fluids and rest - double steroids for a week to 8mg and then back to usual once feeling better. Reviewed options for antivirals, monoclonals: does not want to pursue. Did caution on risk due to immune suppression. Reviewed 5 days personal isolation, 5 days masking. should isolate if symptomatic. Discussed potential serious complications which could occur. To go to ER if chest pain, SOB or labored breathing, leg swelling, feeling faint. 2. 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 Jane Avalos LPN Please call and let patient know she tested positive for COVID-19. Due to her past medical history would recommend a virtual follow-up with PCP to discuss oral antivirals for COVID. Please help her set this up. Continue self-isolation for 5 days from first day of symptom. On day 6 may come out of isolation but needs to wear a mask for another 5 days around others and be afebrile for 24 hours. documented in this encounter [facility] 05-03-2022 Miscellaneous Notes Patient has been identified by name and date of : Yes Requested Prescriptions Pending Prescriptions Disp Refills SUMAtriptan Succinate (IMITREX STAT) 6 mg/0.5 mL cartridge 1 mL 5 Sig: Inject 0.5 mL subcutaneously once daily as needed. migraine TAL 04/22/22 NOV none scheduled RX INSTRUCTIONS: Patient aware RX will be sent to pharmacy. No need to notify patient. Paula Villalobos Ma documented in this encounter [facility] 05-03-2022 Note HNO ID: [id number] Author: Maria Elena Bueno APRN.CREW MANAGER Service: ? Author Type: Nurse Practitioner Type: Progress Notes Filed: 05/03/2022 8:52 AM Note Text: Subjective Cough Associated symptoms include chills, headaches, sore throat and myalgias. Pertinent negatives include no shortness of breath. Leena Yip is a 56 year old female who presents with 2 days of illness. Symptoms include: Fever (>100.4F): No Chills: YES Cough: YES Shortness of breath: No Difficulty breathing: No Fatigue: YES Muscle aches:YES Headache: YES New loss of smell or taste: No Sore throat: YES Nasal congestion: YES Rhinorrhea: No Nausea: YES Vomiting: YES Diarrhea: No Recent sick contacts: YES- coworker sick currently. She has taken Dayquil at home for her symptoms. Review of Systems Constitutional: Positive for chills and malaise/fatigue. Negative for fever. HENT: Positive for congestion and sore throat. Respiratory: Positive for cough. Negative for shortness of breath. Cardiovascular: Negative. Gastrointestinal: Positive for nausea and vomiting. Negative for diarrhea. Musculoskeletal: Positive for myalgias. Neurological: Positive for weakness and headaches. BP 120/84 Pulse 99 Temp 36.8 ?C (98.2 ?F) Resp 18 Wt 49 kg (108 lb) LMP 07/25/2013 SpO2 98% BMI 20.39 kg/m? PAST MEDICAL HISTORY Diagnosis Date Acute bronchitis with chronic obstructive pulmonary disease (COPD) ([facility]) 04/21/2016 06/07/2018 CTA chest with and without contrast: Bilateral breast implants. Normal thoracic arteries and aorta. Hyperinflation, emphysematous changes with bullous formation in both lungs more prominent in upper lobes. Asthma Endometriosis Menopause Migraine PUD (peptic ulcer disease) in high school Rheumatoid arthritis (HCC) Dr. Sarah PAST SURGICAL HISTORY Procedure Laterality Date BREAST AUGMENTATION W/PROSTHETIC IMPLANT ELBOW SURGERY HX 07/14/2016, 11/10/2016 tendons and nerve torn from bone LAPAROSCOPY DIAGNOSTIC 1994 PAST SURGICAL HISTORY OF deviated septum/sinus PAST SURGICAL HISTORY OF impacted wisdom teeth ALLERGIES Clindamycin, Aspirin, Ciprofloxacin, Erythromycin, [id number] [Polyethylene Glycol 3350], and Penicillins MEDICATIONS docosahexaenoic acid/epa (FISH OIL ORAL) Take by mouth. folic acid 1 mg tablet Take 1 tablet by mouth twice daily. SUMAtriptan Succinate (IMITREX STAT) 6 mg/0.5 mL cartridge Inject 0.5 mL subcutaneously once daily as needed. migraine predniSONE (DELTASONE) 1 mg tablet Take 4 mg by mouth once daily. alendronate (FOSAMAX) 70 mg tablet Take 1 tablet by mouth one time a week. Take with a full glass of water, on an empty stomach; do NOT lie down for 30minutes. CALCIUM ORAL Take 600 mg by mouth twice daily. albuterol HFA (PROAIR HFA) 90 mcg/actuation inhaler Inhale 2 Puffs as instructed every 4 hours as needed. ORENCIA CLICKJECT 125 mg/mL AutoInjector one time a week. BIOTIN ORAL Take by mouth. LEUCOVORIN CALCIUM ORAL Take 25 mg by mouth one time a week. Cholecalciferol, Vitamin D3, 1,000 unit cap Take 1,000 Units by mouth once daily. methotrexate 2.5 mg tablet Take 7 tablets by mouth every Tuesday. FAMILY HISTORY Problem Relation Age of Onset other (RA) Mother other (Hypothyroid) Mother other (chrones) Mother Cancer Father lung with brain mestastases Cancer Sister Thyroid Social History Tobacco Use Smoking status: Former Packs/day: 1.00 Years: 20.00 Pack years: 20.00 Types: Cigarettes Quit date: 04/14/2021 Years since quittin.0 Smokeless tobacco: Never Substance Use Topics Alcohol use: No Drug use: No Objective Physical Exam Vitals and nursing note reviewed. Constitutional: General: She is not in acute distress. Appearance: Normal appearance. She is not toxic-appearing. HENT: Mouth/Throat: Mouth: Mucous membranes are moist. Pharynx: No oropharyngeal exudate or posterior oropharyngeal erythema. Cardiovascular: Rate and Rhythm: Normal rate and regular rhythm. Heart sounds: Normal heart sounds. Pulmonary: Effort: Pulmonary effort is normal. No respiratory distress. Breath sounds: Normal breath sounds. No wheezing or rales. Skin: General: Skin is warm and dry. Findings: No erythema or rash. Neurological: Mental Status: She is alert. ASSESSMENT/PLAN: 1. Flu-like symptoms - ICD9: 780.99, ICD10: R68.89 - INFLUENZA AANDB MOLECULAR (POC)- negative in office. - 2019 CORONAVIRUS - BENZONATATE 100 MG CAPSULE 2. Sore throat - ICD9: 462, ICD10: J02.9 - suspect viral - [place] Strep Test negative, no culture pending - Discussed supportive care treatment with fluids, rest and analgesia. - STREP A MOLECULAR (POC) - Follow-up with your PCP in 3-5 days if symptoms have not improved or sooner if symptoms worsen - Discussed red flags and need for immediate medical evaluation if any occur. - Discussed supportive care treatment with fluids, rest and anal (more content not included)... [facility] 05-03-2022 Instructions Maria Elena Bueno APRN.EMMA - 05/03/2022 8:51 AM EST ASSESSMENT/PLAN: 1. Flu-like symptoms - ICD9: 780.99, ICD10: R68.89 - INFLUENZA A&B MOLECULAR (POC)- negative in office. - 2019 CORONAVIRUS - BENZONATATE 100 MG CAPSULE 2. Sore throat - ICD9: 462, ICD10: J02.9 - suspect viral - Alere Strep Test negative, no culture pending - Discussed supportive care treatment with fluids, rest and analgesia. - STREP A MOLECULAR (POC) - Follow-up with your PCP in 3-5 days if symptoms have not improved or sooner if symptoms worsen - Discussed red flags and need for immediate medical evaluation if any occur. - Discussed supportive care treatment with fluids, rest and analgesia. - Discussed expected course of illness Maria Elena Bueno APRN.CREW MANAGER Treatment for Viral Upper Respiratory Tract Infections Your body will kill off the virus by itself. Additionally, you can prime your body's immune system. This may help you get better more quickly. Drink lots of fluids Make sure you are eating well Get plenty of rest We do not have any medications that kill off these viruses. Antibiotics are used to treat bacterial infections; however, they are not active against viral infections. There are some things that might help you feel better, though. Vaporizers, humidifiers, hot showers, and hot fluids help open respiratory and sinus passages [place] Nasal Mather may offer relief of nasal and head congestion Too's Vapor Rub may relieve congestion Tylenol and Advil help control fevers and headaches Salt water gargles help relieve sore throats Chloraceptic spray or throat lozenges may also help relieve sore throat symptoms Occasionally, viral infections turn into something more serious. You should see your doctor or return to the Urgent Care if: You have fevers for longer than five days You have fevers above 102 degrees You are still sick after 10 days You have shortness of breath or wheezing After several days you are getting worse rather than better documented in this encounter [facility] 05-03-2022 History of Present illness Narrative Subjective Cough Associated symptoms include chills, headaches, sore throat and myalgias. Pertinent negatives include no shortness of breath. Leena Yip is a 56 year old female who presents with 2 days of illness. Symptoms include: Fever (>100.4F): No Chills: YES Cough: YES Shortness of breath: No Difficulty breathing: No Fatigue: YES Muscle aches:YES Headache: YES New loss of smell or taste: No Sore throat: YES Nasal congestion: YES Rhinorrhea: No Nausea: YES Vomiting: YES Diarrhea: No Recent sick contacts: YES- coworker sick currently. She has taken Dayquil at home for her symptoms. Review of Systems Constitutional: Positive for chills and malaise/fatigue. Negative for fever. HENT: Positive for congestion and sore throat. Respiratory: Positive for cough. Negative for shortness of breath. Cardiovascular: Negative. Gastrointestinal: Positive for nausea and vomiting. Negative for diarrhea. Musculoskeletal: Positive for myalgias. Neurological: Positive for weakness and headaches. BP 120/84 Pulse 99 Temp 36.8 C (98.2 F) Resp 18 Wt 49 kg (108 lb) LMP 07/25/2013 SpO2 98% BMI 20.39 kg/m PAST MEDICAL HISTORY Diagnosis Date Acute bronchitis with chronic obstructive pulmonary disease (COPD) ([facility]) 04/21/2016 06/07/2018 CTA chest with and without contrast: Bilateral breast implants. Normal thoracic arteries and aorta. Hyperinflation, emphysematous changes with bullous formation in both lungs more prominent in upper lobes. Asthma Endometriosis Menopause Migraine PUD (peptic ulcer disease) in high school Rheumatoid arthritis ([facility]) Dr. Sarah PAST SURGICAL HISTORY Procedure Laterality Date BREAST AUGMENTATION W/PROSTHETIC IMPLANT ELBOW SURGERY HX 07/14/2016, 11/10/2016 tendons and nerve torn from bone LAPAROSCOPY DIAGNOSTIC 1994 PAST SURGICAL HISTORY OF deviated septum/sinus PAST SURGICAL HISTORY OF impacted wisdom teeth ALLERGIES Clindamycin, Aspirin, Ciprofloxacin, Erythromycin, [id number] [Polyethylene Glycol 3350], and Penicillins MEDICATIONS docosahexaenoic acid/epa (FISH OIL ORAL) Take by mouth. folic acid 1 mg tablet Take 1 tablet by mouth twice daily. SUMAtriptan Succinate (IMITREX STAT) 6 mg/0.5 mL cartridge Inject 0.5 mL subcutaneously once daily as needed. migraine predniSONE (DELTASONE) 1 mg tablet Take 4 mg by mouth once daily. alendronate (FOSAMAX) 70 mg tablet Take 1 tablet by mouth one time a week. Take with a full glass of water, on an empty stomach; do NOT lie down for 30minutes. CALCIUM ORAL Take 600 mg by mouth twice daily. albuterol HFA (PROAIR HFA) 90 mcg/actuation inhaler Inhale 2 Puffs as instructed every 4 hours as needed. ORENCIA CLICKJECT 125 mg/mL AutoInjector one time a week. BIOTIN ORAL Take by mouth. LEUCOVORIN CALCIUM ORAL Take 25 mg by mouth one time a week. Cholecalciferol, Vitamin D3, 1,000 unit cap Take 1,000 Units by mouth once daily. methotrexate 2.5 mg tablet Take 7 tablets by mouth every Tuesday. FAMILY HISTORY Problem Relation Age of Onset other (RA) Mother other (Hypothyroid) Mother other (chrones) Mother Cancer Father lung with brain mestastases Cancer Sister Thyroid Social History Tobacco Use Smoking status: Former Packs/day: 1.00 Years: 20.00 Pack years: 20.00 Types: Cigarettes Quit date: 04/14/2021 Years since quittin.0 Smokeless tobacco: Never Substance Use Topics Alcohol use: No Drug use: No Objective Physical Exam Vitals and nursing note reviewed. Constitutional: General: She is not in acute distress. Appearance: Normal appearance. She is not toxic-appearing. HENT: Mouth/Throat: Mouth: Mucous membranes are moist. Pharynx: No oropharyngeal exudate or posterior oropharyngeal erythema. Cardiovascular: Rate and Rhythm: Normal rate and regular rhythm. Heart sounds: Normal heart sounds. Pulmonary: Effort: Pulmonary effort is normal. No respiratory distress. Breath sounds: Normal breath sounds. No wheezing or rales. Skin: General: Skin is warm and dry. Findings: No erythema or rash. Neurological: Mental Status: She is alert. ASSESSMENT/PLAN: 1. Flu-like symptoms - ICD9: 780.99, ICD10: R68.89 - INFLUENZA A&B MOLECULAR (POC)- negative in office. - 2019 CORONAVIRUS - BENZONATATE 100 MG CAPSULE 2. Sore throat - ICD9: 462, ICD10: J02.9 - suspect viral - Alere Strep Test negative, no culture pending - Discussed supportive care treatment with fluids, rest and analgesia. - STREP A MOLECULAR (POC) - Follow-up with your PCP in 3-5 days if symptoms have not improved or sooner if symptoms worsen - Discussed red flags and need for immediate medical evaluation if any occur. - Discussed supportive care treatment with fluids, rest and analgesia. - Discussed expected course of illness Maria Elena Bueno APRN.CNP documented in this encounter [facility] 05-02-2022 Note HNO ID: [id number] Author: Colette Gómez APRN.CNP Service: ? Author Type: Nurse Practitioner Type: Progress Notes Filed: 05/02/2022 11:42 AM Note Text: This is an Express [facility] eVisit note for Leena Yip eVisit/Questionnaire reviewed The chief complaint for the visit - Patient presents with: Sinusitis Recommendations/Treatment plan - See My Chart Message to patient Time spent <1 minute Colette Gómez APRN.CNP [facility] 02-19-2023 History of Present illness Narrative This is an [facility] eVisit note for Leena Yip eVisit/Questionnaire reviewed The chief complaint for the visit - Patient presents with: Sinusitis Recommendations/Treatment plan - See My Chart Message to patient Time spent <1 minute Colette Gómez APRN.EMMA documented in this encounter [facility] 04-27-2022 Miscellaneous Notes Completed form faxed as requested Type of form: FMLA Form received via fax When form is completed, Fax form to [phone] Form has been forwarded to MATIAS Bassett Ma documented in this encounter [facility] 04-22-2022 Note HNO ID: [id number] Author: Solange Kruger PA-C Service: ? Author Type: Physician Patcher Type: Progress Notes Filed: 04/23/2022 5:58 AM Note Text: 56 year old female with c/o annual physical and problem review. Current concerns: Hair loss Ringworm back from last visit Chest pain from last visit: Today having feeling like someone is standing on the right side of her anterior chest. Was out walling, stopped to pay attention for 4-5 sec and resumed walk and got no worse. Lasted or several hours and then went away, mild pressure, 4-5 /10. Not bad but couldn't ignore. [place] hot, SOB during discomfort. No sweating. Had heart burn a couple days last week. Lasted a couple hours and went away. No palpitations or rapid heart rate., No syncopal sx. Hyperinflation of lungs (primary encounter diagnosis) Bullous emphysema (hcc) [employer] Worker: none. Interval history: no new events. Current medications: Albuterol 90 mcg 2 puffs q4h prn Worsening shortness of breath: No. Cough: No. Wheezing: No. Smoking: No. 11 months off cigarettes!! Compliant with medications: Yes. Using rescue inhaler: 1-2 time a month. Rheumatoid arthritis involving multiple sites with positive rheumatoid factor ([facility]) Rheum: Dr. Sarah [facility] Current medications: Orencia 125mg weekly Prednisone 4mg daily Folic acid 1mg daily 2 tabs Leucovorin 25mg daily MTX 2.5mg 7 tabs once a week Alendronate 70mg daily 09/08/2021 [facility] labs: CMP WNL, CBC WNL except RBC 3.94L 01/22/2021 BMD t-scores: LS -2.0, LH -1.5, LFN -3.3 In November Had fluid on knee: Dr. Sarah agreed to aspirate but no fluid. Gave cortisone injection. Joint pain relatively well controlled. 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 No change in pattern of headaches. Mild intermittent asthma without complication Stable off meds, no sx. Last need for treatment with bronchitis 2 years ago Pud (peptic ulcer disease) No issues, no meds. Symptomatic menopausal or female climacteric states Endometriosis Hot flashes: not as often. HISTORIES FAMILY HISTORY Problem Relation Age of Onset other (RA) Mother other (Hypothyroid) Mother other (chrones) Mother Cancer Father lung with brain mestastases Cancer Sister Thyroid PAST MEDICAL HISTORY Diagnosis Date Acute bronchitis with chronic obstructive pulmonary disease (COPD) ([facility]) 04/21/2016 06/07/2018 CTA chest with and without contrast: Bilateral breast implants. Normal thoracic arteries and aorta. Hyperinflation, emphysematous changes with bullous formation in both lungs more prominent in upper lobes. Asthma Endometriosis Menopause Migraine PUD (peptic ulcer disease) in high school Rheumatoid arthritis ([facility]) Dr. Sarah PAST SURGICAL HISTORY Procedure Laterality Date BREAST AUGMENTATION W/PROSTHETIC IMPLANT ELBOW SURGERY HX 07/14/2016, 11/10/2016 tendons and nerve torn from bone LAPAROSCOPY DIAGNOSTIC 1994 PAST SURGICAL HISTORY OF deviated septum/sinus PAST SURGICAL HISTORY OF impacted wisdom teeth Social History Tobacco Use Smoking status: Former Packs/day: 1.00 Years: 20.00 Pack years: 20.00 Types: Cigarettes Quit date: 04/14/2021 Years since quittin.0 Smokeless tobacco: Never Substance Use Topics Alcohol use: No Drug use: No ACTIVE PROBLEM LIST Symptomatic Menopausal Or Female Climacteric States Migraine Asthma Pud (Peptic Ulcer Disease) Endometriosis Menopause Right Shoulder Pain Iatrogenic Nely's Disease (Hcc) Hyperinflation of Lungs Cervicothoracic Somatic Dysfunction Rheumatoid Arthritis Involving Multiple Sites With Positive Rheumatoid Factor (Hcc) Adrenal Suppression (Hcc) Osteoporosis Current Chronic Use of Systemic Steroids Bullous Emphysema (Hcc) Current Outpatient Medications Medication Sig Dispense Refill folic acid 1 mg tablet Take 1 tablet by mouth twice daily. SUMAtriptan Succinate (IMITREX STAT) 6 mg/0.5 mL cartridge Inject 0.5 mL subcutaneously once daily as needed. migraine 1 mL 5 predniSONE (DELTASONE) 1 mg tablet Take 4 mg by mouth once daily. alendronate (FOSAMAX) 70 mg tablet Take 1 tablet by mouth one time a week. Take with a full glass of water, on an empty stomach; do NOT lie down for 30minutes. 12 tablet 3 CALCIUM ORAL Take 600 mg by mouth twice daily. albuterol HFA (PROAIR HFA) 90 mcg/actuation inhaler Inhale 2 Puffs as (more content not included)... [facility] 04-22-2022 History of Present illness Narrative 56 year old female with c/o annual physical and problem review. Current concerns: Hair loss Ringworm back from last visit Chest pain from last visit: Today having feeling like someone is standing on the right side of her anterior chest. Was out walling, stopped to pay attention for 4-5 sec and resumed walk and got no worse. Lasted or several hours and then went away, mild pressure, 4-5 /10. Not bad but couldn't ignore. [place] hot, SOB during discomfort. No sweating. Had heart burn a couple days last week. Lasted a couple hours and went away. No palpitations or rapid heart rate., No syncopal sx. Hyperinflation of lungs (primary encounter diagnosis) Bullous emphysema ([facility]) [employer]ag [employer] Worker: none. Interval history: no new events. Current medications: Albuterol 90 mcg 2 puffs q4h prn Worsening shortness of breath: No. Cough: No. Wheezing: No. Smoking: No. 11 months off cigarettes!! Compliant with medications: Yes. Using rescue inhaler: 1-2 time a month. Rheumatoid arthritis involving multiple sites with positive rheumatoid factor ([facility]) Rheum: Dr. Sarah [facility] Current medications: Orencia 125mg weekly Prednisone 4mg daily Folic acid 1mg daily 2 tabs Leucovorin 25mg daily MTX 2.5mg 7 tabs once a week Alendronate 70mg daily 09/08/2021 [facility] labs: CMP WNL, CBC WNL except RBC 3.94L 01/22/2021 BMD t-scores: LS -2.0, LH -1.5, LFN -3.3 In November Had fluid on knee: Dr. Sarah agreed to aspirate but no fluid. Gave cortisone injection. Joint pain relatively well controlled. 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 No change in pattern of headaches. Mild intermittent asthma without complication Stable off meds, no sx. Last need for treatment with bronchitis 2 years ago Pud (peptic ulcer disease) No issues, no meds. Symptomatic menopausal or female climacteric states Endometriosis Hot flashes: not as often. HISTORIES FAMILY HISTORY Problem Relation Age of Onset other (RA) Mother other (Hypothyroid) Mother other (chrones) Mother Cancer Father lung with brain mestastases Cancer Sister Thyroid PAST MEDICAL HISTORY Diagnosis Date Acute bronchitis with chronic obstructive pulmonary disease (COPD) ([facility]) 04/21/2016 06/07/2018 CTA chest with and without contrast: Bilateral breast implants. Normal thoracic arteries and aorta. Hyperinflation, emphysematous changes with bullous formation in both lungs more prominent in upper lobes. Asthma Endometriosis Menopause Migraine PUD (peptic ulcer disease) in high school Rheumatoid arthritis ([facility]) Dr. Sarah PAST SURGICAL HISTORY Procedure Laterality Date BREAST AUGMENTATION W/PROSTHETIC IMPLANT ELBOW SURGERY HX 07/14/2016, 11/10/2016 tendons and nerve torn from bone LAPAROSCOPY DIAGNOSTIC 1994 PAST SURGICAL HISTORY OF deviated septum/sinus PAST SURGICAL HISTORY OF impacted wisdom teeth Social History Tobacco Use Smoking status: Former Packs/day: 1.00 Years: 20.00 Pack years: 20.00 Types: Cigarettes Quit date: 04/14/2021 Years since quittin.0 Smokeless tobacco: Never Substance Use Topics Alcohol use: No Drug use: No ACTIVE PROBLEM LIST Symptomatic Menopausal Or Female Climacteric States Migraine Asthma Pud (Peptic Ulcer Disease) Endometriosis Menopause Right Shoulder Pain 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 SUMAtriptan Succinate (IMITREX STAT) 6 mg/0.5 mL cartridge Inject 0.5 mL subcutaneously once daily as needed. migraine 1 mL 5 predniSONE (DELTASONE) 1 mg tablet Take 4 mg by mouth once daily. alendronate (FOSAMAX) 70 mg tablet Take 1 tablet by mouth one time a week. Take with a full glass of water, on an empty stomach; do NOT lie down for 30minutes. 12 tablet 3 CALCIUM ORAL Take 600 mg by mouth twice daily. albuterol HFA (PROAIR HFA) 90 mcg/actuation inhaler Inhale 2 Puffs as instructed every 4 hours as needed. 1 Inhaler 1 ORENCIA CLICKJECT 125 mg/mL AutoInjector one time a week. BIOTIN ORAL Take by mouth. LEUCOVORIN CALCIUM ORAL Take 25 mg by mouth one time a week. Cholecalciferol, Vitamin D3, 1,000 unit cap Take 1,000 Units by mouth once daily. methotrexate 2.5 mg tablet Take 7 tablets by mouth every Tuesday. 0 No current facility-administered medications for this visit. HEPATITIS B(1 of 3 - 3-dose series) Never done SPIROMETRY Never done HEPATITIS C SCREENING Never done HIV SCREENING Never done DTAP,TDAP,TD(1 - Tdap) Never done SHINGRIX VACCINE(1 of 2) Never done ALPHA-1 ANTITRYPSIN DEFICIENCY SCREENING Never done LUNG CANCER SCREENING Never done PNEUMOCOCCAL(2 - PCV) due on 07/12/2015 LIPID SCREEN due on 09/08/2017 COVID-19 VACCINE(3 - Moderna risk series) due on 07/23/2020 MAMMOGRAM due on 11/13/2021 DEPRESSION ASSESSMENT Never done Yes: updated , , problem list today 04/22/2022 REVIEW OF SYSTEMS REVIEW OF SYMPTOMS: General: denies fatigue, unusual weight loss or gain, fevers, chills. Energy Level: some days good, some days not. Exercise walks some Sleep: hours: doesn't sleep well. About 4 hours and then wakes. Diet: Tobacco use: remains abstinent. Caffeine use: 2 cups coffee. ETOH use: very occasional. Marijuana use: no. Illicit drug use: no. Eyes: denies change in vision, glaucoma, cataracts. Wears glasses/contacts. Last eye exam: 1 year ago. EENT: + tinnitus denies recurrent sinus infection, unusual nasal drainage, hoarsemess, sore throat, or recurrent sore in mouth or tongue. Cardiovascular: denies chest pain , SOB, palpitation, irregular or racing heart beats, orthopnea, leg swelling, history of rheumatic fever or prior heart conditions Respiratory: denies unusual cough, SOB, wheezing, history of recurrent bronchitis, pneumonia or tuberculosis. Denies day time drowsiness. + Snoring. No witnessed sleep apnea. GI: denies difficulty swallowing, nausea, vomiting, change in appetite. No change in bowel habits. Denies constipation, diarrhea, rectal bleeding or hemorrhoids, incontinence. No history of GERD, PUD, jaundice/hepatitis, GB disease, diverticulosis, colorectal cancer, hernias. Kidney/Bladder: Denies frequency, burning. Nocturiax 1, incontinence is sneezes a little. No history of kidney stones, recurrent UTI or kidney infection. Females: climacteric, no post-menopausal bleeding. Sexually active without complication. Skin: denies unusual rashes. No history of skin cancer, bleeding/changing moles, or unusual skin lesions. Neurologic: Denies recurrent WALLS, change in vision, hearing or smell, tremors, unusual weakness, loss of sensation, or difficulty with balance or gait. No history of epilepsy/convulsions, migraine, head/spinal injuries, or stroke/TIA. Psychiatric: denies unusual worry, moodiness, depression, suicidal ideation or unusual disturbance in relationships. No history of psychiatric illness. Endocrine: denies unusual thirst, hunger, excessive urination, change in skin or hair texture, emotional lability. No history of thryoid, pituitary or hormonal problems. Hematologic: denies unusual bleeding, bruising, or history of anemia or blood transfusion. Denies hx blood clots. Infections: denies risk factors for HIV, hepatitis or history of unusual infection. Immunizations are up to date. Musculoskeletal: pain in index and middle finger on right, Hx RA. Stiffness not bad. Muscles aches, joint pain, or swelling. Denies recurrent sprain or disruption of joints, debilitating arthritis, gout, or other musculoskeletal disease. Hx back injury, spinal stenosis, radiculopathy. EXAM: BP 124/66 Pulse 68 Resp 16 Ht 155 cm (5' 1.02 ) Wt 49.9 kg (110 lb) LMP 07/25/2013 SpO2 97% BMI 20.77 kg/m Pleasant adult woman in no acute distress. Alert and oriented all spheres. Euthymic with congruent, easy rapport, normal cognition. Speech normal. No deficits to learning or comprehension. Skin warm, dry, pink to lips and nailbeds. Normal turgor. Hair thinning noted globally with evidence of persistent hair follicles with nubs. Respirations regular and unlabored. HEENT: NCAT. PERRLA. EOMI. No scleral icterus or conjunctival injection. TM's clear. Nose and oropharynx free from injection or lesion. Oral membranes moist and pink. Mild recession anterior lower gum, well maintained dentition. No cervical lymph nodes. Thyroid non-tender, no masses, or enlargement. Carotids pulses 2+/4+ without bruits. No JVD with HOB at 30 degrees. Chest is affected by scoliosis. Lungs are clear to all alcantar with good air exchange through out. HRRR without murmur or gallop. No lifts, heaves, or rubs. Abdomen: active bowel sounds throughout, soft, nontender, no masses or organomegaly. No CVAT. No abdominal bruits, axillary or inguinal nodes. Femoral pulses 2/4+ without bruit. Kyphoscoliosis. Able to touch toes. Extrem: no clubbing or cyanosis. Edema: none. Extremities are warm and pink with prompt capillary refill. [place] and radial pulses 2/4+ with warm pink digits and normal nails. Gait and balance normal. Sensation grossly intact. Negative findings: speech normal, mental status intact, cranial nerves 2-12 intact, muscle tone normal, DTRs 2/4+ and symmetric ASSESSMENT/PLAN: 1. Hyperinflation of lungs - ICD9: 786.9, ICD10: R09.89 (primary diagnosis) 2. Bullous emphysema (HCC) - ICD9: 492.0, ICD10: J43.9 No use of inhalers. Maintaining abstinence with smoking and feeling better 3. Rheumatoid arthritis involving multiple sites with positive rheumatoid factor (HCC) - ICD9: 714.0, ICD10: M05.[address] Sarah rheum. stable 4. Current chronic use of systemic steroids - ICD9: V58.65, ICD10: Z79.52 5. 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 Will need lifelong steroid. 6. Osteoporosis, unspecified osteoporosis type, unspecified pathological fracture presence - ICD9: 733.00, ICD10: M81.0 - set up for BMD AP Spine and Hip Unilateral - Reviewed the need for Calcium and Vitamin D supplements and weight bearing exercise as tolerated - DXA-AXIAL SKELETON 7. Migraine without aura and without status migrainosus, not intractable - ICD9: 346.10, ICD10: G43.009 Improvement in frequency, managing with OTC meds 8. Mild intermittent asthma without complication - ICD9: 493.90, ICD10: J45.20 Mild intermittent Asthma stable - Avoidance of triggers recommended - hasn't needed inhaler. 9. PUD (peptic ulcer disease) - ICD9: 533.90, ICD10: K27.9 Asymptomatic off medication 10. Symptomatic menopausal or female climacteric states - ICD9: 627.2, ICD10: N95.1 11. Endometriosis - ICD9: 617.9, ICD10: N80.9 Stable with no current sx, follows with [facility] 12. Wellness examination - ICD9: V70.0, ICD10: Z00.00 - Counseled on healthy diet and regular exercise - Calcium intake with supplements or by diet of 1000 mg/day for under 50, 1048-7233 mg/day for 50+ - Depression screening tool completed and reviewed with patient. Based on score and interview, patient is not at risk for depression and recommended no further intervention at this time. - Patient was counseled [id number] by myself (the billing provider) for the following immunizations and vaccine components, including side effects: DTaP declined but will come in if injury - Follow up for annual exam in one year 13. Other type of migraine - ICD9: 346.80, ICD10: G43.809 As above 14. Encounter for screening for lung cancer - ICD9: V76.0, ICD10: Z12.2 Agrees to routine screening - CONSULT [facility]G [facility]ER SCREENING [facility]IN[facility] 15. Special screening examination for viral disease - ICD9: V73.99, ICD10: Z11.59 - HEP C AB IA W/CONF SCRN 16. Screening for lipid disorders - ICD9: V77.91, ICD10: Z13.220 - LIPID PANEL BASIC 17. Screening for diabetes mellitus - ICD9: V77.1, ICD10: Z13.1 - HGB A1C - BASIC METABOLIC PNL Will complete work forms. Brought in paper from work to have of file for [employer] or disability. Explained this is not FMLA, she will discuss with HR Solange Kruger PA-C documented in this encounter [facility] 03-31-2022 History of Present illness Narrative Patient presents with: Nasal Congestion HPI: Patient presents today for office visit for acute visit. ENT: Patient complains of sinus pressure. Duration: started yesterday Fever: today but not yesterday. Headache: Yes. Sore throat: not really sore just a little spot. Ear pain: Yes. Right. Nasal drainage: Yes. Cough: Yes. Nonproductive. Shortness of breath: No. Nausea: Just a little yesterday. Vomiting: No. Diarrhea: No. Previous treatment: mucinex, dayquil, nyquil. Did a COVID yesterday that was negative. MEDICATIONS: Current Outpatient Medications Medication Sig folic acid 1 mg tablet Take 1 tablet by mouth twice daily. SUMAtriptan Succinate (IMITREX STAT) 6 mg/0.5 mL cartridge Inject 0.5 mL subcutaneously once daily as needed. migraine predniSONE (DELTASONE) 1 mg tablet Take 4 mg by mouth once daily. alendronate (FOSAMAX) 70 mg tablet Take 1 tablet by mouth one time a week. Take with a full glass of water, on an empty stomach; do NOT lie down for 30minutes. CALCIUM ORAL Take 600 mg by mouth twice daily. albuterol HFA (PROAIR HFA) 90 mcg/actuation inhaler Inhale 2 Puffs as instructed every 4 hours as needed. BIOTIN ORAL Take by mouth. LEUCOVORIN CALCIUM ORAL Take 25 mg by mouth one time a week. Cholecalciferol, Vitamin D3, 1,000 unit cap Take 1,000 Units by mouth once daily. methotrexate 2.5 mg tablet Take 7 tablets by mouth every Tuesday. ORENCIA CLICKJECT 125 mg/mL AutoInjector one time a week. No current facility-administered medications for this visit. ALLERGIES: ALLERGIES Allergen Reactions Clindamycin Rash Aspirin Other: See Comments Scratch test at a child. Ciprofloxacin Rash, Hives Erythromycin Vomiting [id number] [Polyethyle* Intolerance Nausea Penicillins Other: See Comments Childhood allergy/cephalosporins are ok-has used in the past. Can take augmentin PAST MEDICAL HISTORY Diagnosis Date Acute bronchitis with chronic obstructive pulmonary disease (COPD) ([facility]) 04/21/2016 06/07/2018 CTA chest with and without contrast: Bilateral breast implants. Normal thoracic arteries and aorta. Hyperinflation, emphysematous changes with bullous formation in both lungs more prominent in upper lobes. Asthma Endometriosis Menopause Migraine PUD (peptic ulcer disease) in high school Rheumatoid arthritis ([facility]) Dr. Sarah PAST SURGICAL HISTORY Procedure Laterality Date BREAST AUGMENTATION W/PROSTHETIC IMPLANT ELBOW SURGERY HX 07/14/2016, 11/10/2016 tendons and nerve torn from bone LAPAROSCOPY DIAGNOSTIC 1994 PAST SURGICAL HISTORY OF deviated septum/sinus PAST SURGICAL HISTORY OF impacted wisdom teeth FAMILY HISTORY Problem Relation Age of Onset other (RA) Mother other (Hypothyroid) Mother other (chrones) Mother Cancer Father lung with brain mestastases Cancer Sister Thyroid Social History Tobacco Use Smoking status: Former Packs/day: 1.00 Years: 20.00 Pack years: 20.00 Types: Cigarettes Quit date: 04/14/2021 Years since quittin.9 Smokeless tobacco: Never Substance Use Topics Alcohol use: No Drug use: No Reviewed current medications, allergies, past medical history, surgical history, family history and social history today. REVIEW OF SYSTEMS All other reviewed and negative other than HPI. VITALS: BP 110/82 Pulse 76 Temp 37.3 C (99.2 F) (Tympanic) Wt 48.5 kg (107 lb) LMP 07/27/2013 BMI 20.22 kg/m Last 4 Encounter Wt Readings: Date: Wt: 02/18/2022 49.4 kg (109 lb) 10/28/2021 49 kg (108 lb) 10/15/2021 49 kg (108 lb) 08/20/2021 49 kg (108 lb) PHYSICAL EXAMINATION: General appearance: Well appearing, alert, in no acute distress, well-hydrated, well nourished. Skin: Skin color, texture, turgor normal, no suspicious rashes or lesions Head: Normocephalic, no masses, lesions, tenderness or abnormalities Eyes: Anicteric sclera. Pupils are equally round and reactive to light. Extraocular movements are intact. Ears: External ears normal, canals clear Nose/Sinuses: Nares normal, septum midline, mucosa normal, no drainage or sinus tenderness Oropharynx: Lips, mucosa, and tongue normal, teeth and gums normal, oropharynx normal Neck: Negative findings: no adenopathy Lungs: Lungs clear to auscultation. No wheezing, rhonchi, rales Heart: RRR without murmur, gallop, or rubs. No ectopy Abdomen: Normal abdominal exam, Abdomen soft, non-tender. Bowel sounds normal. No masses, organomegaly Extremities: No deformities, edema, skin discoloration, clubbing or cyanosis. Good capillary refill. ASSESSMENT/PLAN: 1. URI, acute - ICD9: 465.9, ICD10: J06.9 Supportive care. Did discuss tamiflu or paxlovid if either below is positive. Red flags for re-assessment reviewed with patient in detail. Call if symptoms worsen at all or if not better in one to two weeks - COVID WITH FLUA+B, ROUTINE Santino Elizondo MD documented in this encounter [facility] 02-18-2022 Instructions M Emeterio Kruger PA-C - 02/18/2022 5:51 PM EST Chest pain: When to seek help -- If you have chest pain that is new, severe, prolonged, or if chest pain causes concern, call 911 immediately. The emergency medical services (EMS) personnel in your community are prepared to respond rapidly, and will take you to the nearest hospital. For a patient having a heart attack, every minute is important. Remember, the faster you get to a hospital, the sooner you can receive treatment. Do not drive yourself to the hospital and do not ask someone else to drive you. Calling 911 is safer than driving for two reasons: From the moment EMS personnel arrive, they can begin evaluating and treating chest pain. If you drive to the hospital, treatment cannot begin until you arrive in the emergency department. If a dangerous complication of a heart attack (eg, a serious irregular heart rhythm) occurs on the way to the hospital, EMS personnel are trained to treat the problem immediately. While waiting for the squad, rest sitting or laying down and try to remain calm. If you are not allergic: chew 4 Baby Aspirin or 2 adult aspirin. Aspirin has been shown to reduce incidence and severity with heart attacks. documented in this encounter [facility] 02-18-2022 History of Present illness Narrative 56 year old female with c/o Has ringworm on back persistent 10/28/2021 Saw Bibi Del Castillo: prescribed triamcinolone 0.1% 3 times a day 12/07/2021 Dr. Mikhail denton 100,000u twice a day Today having feeling like someone is standing on the right side of her anterior chest. Was out walling, stopped to pay attention for 4-5 sec and resumed walk and got no worse. Lasted or several hours and then went away, mild pressure, 4-5 /10. Not bad but couldn't ignore. [place] hot, SOB during discomfort. No sweating. Had heart burn a couple days last week. Lasted a couple hours and went away. No palpitations or rapid heart rate., No syncopal sx. 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 Interval history: no new events. Current medications: Albuterol 90 mcg 2 puffs q4h prn Worsening shortness of breath: No. Cough: No. Wheezing: No. Smoking: No. 11 months off cigarettes!! Compliant with medications: Yes. Using rescue inhaler: 1-2 time a month. Rheumatoid arthritis involving multiple sites with positive rheumatoid factor (hcc) Current chronic use of systemic steroids Osteoporosis, unspecified osteoporosis type, unspecified pathological fracture presence Iatrogenic nely's disease (hcc) Adrenal suppression (hcc) Rheum: Dr. Sarah [facility] Current medications: Orencia 125mg weekly Prednisone 4mg daily Folic acid 1mg daily 2 tabs Leucovorin 25mg daily MTX 2.5mg 7 tabs once a week Alendronate 70mg daily 09/08/2021 [facility] labs: CMP WNL, CBC WNL except RBC 3.94L 01/22/2021 BMD t-scores: LS -2.0, LH -1.5, LFN -3.3 In November Had fluid on knee: Dr. Sarah agreed to aspirate but no fluid. Gave cortisone injection. Joint pain relatively well controlled. Migraine without aura and without status migrainosus, not intractable Current medications: Sumatriptan succinate 6mg SC daily as needed migraine Having a lot of sinus headaches related to weather. Also getting migraines more frequently r/t weather changes. No change in pattern of headaches. Pud (peptic ulcer disease) Stable off meds, no sx. HISTORIES FAMILY HISTORY Problem Relation Age of Onset other (RA) Mother other (Hypothyroid) Mother other (chrones) Mother Cancer Father lung with brain mestastases Cancer Sister Thyroid PAST MEDICAL HISTORY Diagnosis Date Asthma Endometriosis Menopause Migraine PUD (peptic ulcer disease) in high school Rheumatoid arthritis (HCC) Dr. Sarah PAST SURGICAL HISTORY Procedure Laterality Date BREAST AUGMENTATION W/PROSTHETIC IMPLANT ELBOW SURGERY HX 07/14/2016, 11/10/2016 tendons and nerve torn from bone LAPAROSCOPY DIAGNOSTIC 1994 PAST SURGICAL HISTORY OF deviated septum/sinus PAST SURGICAL HISTORY OF impacted wisdom teeth Social History Tobacco Use Smoking status: Former Packs/day: 1.00 Years: 20.00 Pack years: 20.00 Types: Cigarettes Quit date: 04/14/2021 Years since quittin.8 Smokeless tobacco: Never Substance Use Topics Alcohol use: No Drug use: No ACTIVE PROBLEM LIST Symptomatic Menopausal Or Female Climacteric States Migraine Asthma Pud (Peptic Ulcer Disease) Endometriosis Menopause Right Shoulder Pain Iatrogenic Nely's Disease (Hcc) Acute Bronchitis With Chronic Obstructive Pulmonary Disease (Copd) (Hcc) Cervicothoracic Somatic Dysfunction Rheumatoid Arthritis Involving Multiple Sites With Positive Rheumatoid Factor (Hcc) Adrenal Suppression (Hcc) Osteoporosis Current Chronic Use of Systemic Steroids Current Outpatient Medications Medication Sig Dispense Refill folic acid 1 mg tablet Take 1 tablet by mouth twice daily. predniSONE (DELTASONE) 10 mg tablet 2 tabs once a day for three days, then one tab once a day for three days and then resume previous prednisone dose. 9 tablet 1 SUMAtriptan Succinate (IMITREX STAT) 6 mg/0.5 mL cartridge Inject 0.5 mL subcutaneously once daily as needed. migraine 1 mL 5 predniSONE (DELTASONE) 1 mg tablet Take 4 mg by mouth once daily. alendronate (FOSAMAX) 70 mg tablet Take 1 tablet by mouth one time a week. Take with a full glass of water, on an empty stomach; do NOT lie down for 30minutes. 12 tablet 3 CALCIUM ORAL Take 600 mg by mouth twice daily. albuterol HFA (PROAIR HFA) 90 mcg/actuation inhaler Inhale 2 Puffs as instructed every 4 hours as needed. 1 Inhaler 1 ORENCIA CLICKJECT 125 mg/mL AutoInjector one time a week. BIOTIN ORAL Take by mouth. LEUCOVORIN CALCIUM ORAL Take 25 mg by mouth one time a week. Cholecalciferol, Vitamin D3, 1,000 unit cap Take 1,000 Units by mouth once daily. methotrexate 2.5 mg tablet Take 7 tablets by mouth every Tuesday. 0 No current facility-administered medications for this visit. HEPATITIS B(1 of 3 - 3-dose series) Never done SPIROMETRY Never done HEPATITIS C SCREENING Never done HIV SCREENING Never done DTAP,TDAP,TD(1 - Tdap) Never done SHINGRIX VACCINE(1 of 2) Never done ALPHA-1 ANTITRYPSIN DEFICIENCY SCREENING Never done LUNG CANCER SCREENING Never done PNEUMOCOCCAL(2 - PCV) due on 07/12/2015 LIPID SCREEN due on 09/08/2017 COVID-19 VACCINE(3 - Moderna risk series) due on 07/23/2020 DEPRESSION ASSESSMENT Never done MAMMOGRAM due on 11/13/2021 EXAM: BP 108/64 Pulse 71 Resp 16 Wt 49.4 kg (109 lb) LMP 07/27/2013 SpO2 96% BMI 20.60 kg/m Pleasant well appearing adult woman mild cushinoid appearance, in no acute distress. Alert and oriented all spheres. Normal affect and cognition. Speech normal. No deficits to learning or comprehension. Skin warm, dry, pink to lips and nailbeds. Normal turgor. Respirations regular and unlabored. Chest normal shape, mild scoliosis. + tenderness coracobrachialis which is similar to pain area earlier. Also tender in pterygoid complex right posterior. Chest is normal shape. Lungs are clear to all alcantar with good air exchange through out. HRRR without murmur or gallop. No lifts, heaves, or rubs. Extrem: no clubbing or cyanosis. Edema: none. Extremities are warm and pink with prompt capillary refill. ASSESSMENT/PLAN: 1. Hyperinflation of lungs - ICD9: 786.9, ICD10: R09.89 (primary diagnosis) Continue current meds. Congratulated on successful cessation of cigarettes. Continue to monitor. 2. Rheumatoid arthritis involving multiple sites with positive rheumatoid factor (HCC) - ICD9: 714.0, ICD10: M05.[address] Sarah, disease is kept in check with current medications. 3. Current chronic use of systemic steroids - ICD9: V58.65, ICD10: Z79.52 Will likely require lifelong low-dose steroids to discuss immunosuppression, continue current prednisone 4. Osteoporosis, unspecified osteoporosis type, unspecified pathological fracture presence - ICD9: 733.00, ICD10: M81.0 - continue tx with alendronate (Fosamax) - Reviewed the need for Calcium and Vitamin D supplements and weight bearing exercise as tolerated 5. 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) - ICD9: 255.0, E980.5, ICD10: E24.2 As above 6. Adrenal suppression (HCC) - ICD9: 255.41, ICD10: E27.49 As above 7. Migraine without aura and without status migrainosus, not intractable - ICD9: 346.10, ICD10: G43.009 Recent increase in headaches, possibly related to situational stress Follow-up patterns and use of medications. 8. Mild intermittent asthma without complication - ICD9: 493.90, ICD10: J45.20 Mild intermittent Asthma stable - Continue current meds - Avoidance of triggers recommended 9. PUD (peptic ulcer disease) - ICD9: 533.90, ICD10: K27.9 Currently on no medication asymptomatic. Will monitor. 10. Chest pain, unspecified type - ICD9: 786.50, ICD10: R07.9 Chest pain of unclear etiology, patient with significant risk factor(s) of smoking and chronic steroid use, RA. -Patient's description warrants attention, this is first episode of reported chest discomfort. Patient is advised to report any further episodes of chest pain, and sustained to call 911, chew 1 adult aspirin or 4 baby aspirin and present to the emergency department - ECG COMPLETE: Normal sinus rhythm, normal axis, pending cardiology review - D-DIMER - XR CHEST 2V FRONTAL/LAT 11. Bullous emphysema (HCC) - ICD9: 492.0, ICD10: J43.9 Solange Kruger PA-C documented in this encounter [facility] 10-28-2021 Instructions Bibi Del Castillo APRN.[facility] - 10/28/2021 5:02 PM EDT 1.) Start Steroid cream to lesion on back, use as direction. 2.) Keep area clean and dry. 3.) Follow up as needed or sooner if symptoms do no improve. CONTACT DERMATITIS What is contact dermatitis? Contact dermatitis is inflammation of the skin (rash) that may result when the skin is touched by irritants or substances that cause an allergic reaction. Contact dermatitis can occur from exposure to many different compounds found both in the home and at work. There are two types of contact dermatitis: 1. Allergic contact dermatitis -- occurs when skin, which has become sensitized to a certain substance (allergen), comes in contact with that substance again 2. Irritant contact dermatitis -- occurs when the skin is exposed to a mild irritant (such as detergent or solvents) repeatedly over a long period of time or a strong irritant (such as acid, alkali, solvent, strong soap or detergent), which can cause immediate skin damage Common sources of allergic contact dermatitis Not everyone reacts to allergens. However, some people will react to an allergen which they had previously tolerated for many years. Skin can become allergic to a substance after many exposures or after just one exposure. Most people will have an allergic reaction to poison eh after one exposure, for instance. This is a delayed skin reaction that typically develops 12 to 72 hours after exposure. Common sources of allergic contact dermatitis include: Nickel (a common metal used in jewelry) and other metals. Nickel has been reported to cause contact dermatitis in up to 10 percent of women. Gold is also becoming a widespread allergen. This type of allergic contact dermatitis can begin with intermittent rashes under earrings or other jewelry. Fragrances -- for example, those found in perfumes, soaps, lotions, and shampoos Cosmetics Topical medications such as antibiotics or anti-itch preparations -- these cause worsening of the problem and are often misinterpreted as infection Preservatives, which keep topical products from spoiling Sunscreens -- commonly cause a hive-like rash that can appear hours or days after sun exposure Rubber ingredients -- common source of work-related allergy. Rubber can cause immediate allergic reactions, such as itching, burning, or welts. Some people experience itching and tearing eyes or even shortness of breath. Common sources of irritant contact dermatitis Detergents, soaps, correctional therapy teacher, waxes and chemicals are substances that can irritate the skin. They can wear down the oily, protective layer on skin's surface and lead to irritant contact dermatitis. Irritant contact dermatitis is most common among people who regularly work with strong chemicals, such as restaurant, maintenance, and chemical workers. Are certain occupations at greater risk? Some occupations have more exposure to chemicals or substances that can result in sensitization and cause allergic contact dermatitis. These include dental workers, health care workers, florists, hairdressers, machinists, and photographers among many others. What are the symptoms of contact dermatitis? Contact dermatitis symptoms can range from mild redness and dryness to severe pain and peeling that can be disabling. Allergic contact dermatitis Reddening of skin (either in patches or all over the body) Intermittent dry, scaly patches of skin Blisters that ooze Burning or itching that is usually intense without visible skin sores (lesions) Swelling in the eyes, face, and genital areas (severe cases) Hives Sun sensitivity Darkened, leathery and cracked skin Allergic contact dermatitis can be very difficult to distinguish from other rashes. Irritant contact dermatitis Mild swelling of skin Stiff, tight feeling skin Dry, cracking skin Blisters Painful ulcers on the skin Symptoms vary depending on the cause of dermatitis. How can I know if I have contact dermatitis? If you have a skin rash that won't go away, visit your health care provider. If he or she suspects allergic contact dermatitis, patch testing may be performed. In this test, small samples of chemicals are placed on an area of skin to see if a rash develops. There are no needles or pricking of the skin. The areas of the skin are then evaluated after 48 hours and again at 96 hours or one week. The advantage of patch testing is that the allergens can be identified and your health care provider can effectively treat the rash. This avoids the need for chronic medications that have many potential side effects. There are no tests that can be done for irritant contact dermatitis. Tell your health care provider about any irritating substances or chemicals that you regularly come into contact with (including cosmetics, lotions, and nail [place] citizen). With either type of contact dermatitis, you can avoid substances you suspect and see if the rash goes away. How is contact dermatitis treated? The form of treatment will depend on the cause of contact dermatitis. Common treatments include: cortisone-type creams, antihistamines, lotions and creams or oatmeal baths (to relieve itching). How can I prevent contact dermatitis? For allergic contact dermatitis: Avoid contact with substances that cause the skin rash. Wash any area that comes into contact with allergic substances. Learn to recognize poison oak and poison eh. For irritant contact dermatitis: Wear cotton gloves under rubber gloves for all wet work. Or, use petroleum jelly to the protect the skin. Reapply the petroleum jelly two or three times a day and after washing your hands. Avoid contact with substances that irritate the skin. Use mild soaps. Use hand creams and lotions frequently. documented in this encounter [facility] 10-28-2021 History of Present illness Narrative This is a 56 year old female who presents today with: Patient presents with: Acute Visit: Red spot on my back HISTORY OF PRESENT ILLNESS: Leena Yip is a 56 year old female. Patient presents with: Acute Visit: Red spot on my back Patient of Anthony Kruger PA-C here in the office for skin concern. Noticed red, itchy skin lesion last week. She has difficulty reaching/seeing the area due to location. Some concerns due to cats being outside. Has not applied anything to the skin. No new health and beauty products. Throbbing pain at times. PAST MEDICAL HISTORY: PAST MEDICAL HISTORY Diagnosis Date Asthma Endometriosis Menopause Migraine PUD (peptic ulcer disease) in high school Rheumatoid arthritis (HCC) Dr. Sarah PAST SURGICAL HISTORY Procedure Laterality Date BREAST AUGMENTATION W/PROSTHETIC IMPLANT ELBOW SURGERY HX 07/14/2016, 11/10/2016 tendons and nerve torn from bone LAPAROSCOPY DIAGNOSTIC 1994 PAST SURGICAL HISTORY OF deviated septum/sinus PAST SURGICAL HISTORY OF impacted wisdom teeth ALLERGIES Clindamycin, Aspirin, Ciprofloxacin, Erythromycin, [id number] [Polyethylene Glycol 3350], and Penicillins MEDICATIONS Current Outpatient Medications Medication Sig folic acid 1 mg tablet Take 1 tablet by mouth twice daily. predniSONE (DELTASONE) 10 mg tablet 2 tabs once a day for three days, then one tab once a day for three days and then resume previous prednisone dose. SUMAtriptan Succinate (IMITREX STAT) 6 mg/0.5 mL cartridge Inject 0.5 mL subcutaneously once daily as needed. migraine predniSONE (DELTASONE) 1 mg tablet Take 4 mg by mouth once daily. alendronate (FOSAMAX) 70 mg tablet Take 1 tablet by mouth one time a week. Take with a full glass of water, on an empty stomach; do NOT lie down for 30minutes. CALCIUM ORAL Take 600 mg by mouth twice daily. albuterol HFA (PROAIR HFA) 90 mcg/actuation inhaler Inhale 2 Puffs as instructed every 4 hours as needed. ORENCIA CLICKJECT 125 mg/mL AutoInjector one time a week. BIOTIN ORAL Take by mouth. LEUCOVORIN CALCIUM ORAL Take 25 mg by mouth one time a week. Cholecalciferol, Vitamin D3, 1,000 unit cap Take 1,000 Units by mouth once daily. methotrexate 2.5 mg tablet Take 7 tablets by mouth every Tuesday. No current facility-administered medications for this visit. FAMILY HISTORY Problem Relation Age of Onset other (RA) Mother other (Hypothyroid) Mother other (chrones) Mother Cancer Father lung with brain mestastases Cancer Sister Thyroid Social History Tobacco Use Smoking status: Former Packs/day: 1.00 Years: 20.00 Pack years: 20.00 Types: Cigarettes Quit date: 04/14/2021 Years since quittin.5 Smokeless tobacco: Never Substance Use Topics Alcohol use: No Drug use: No REVIEW OF SYSTEMS GENERAL: No weight loss, malaise or fevers/chills HEENT: Negative for frequent or significant headaches, No changes in hearing or vision. NECK: Negative for lumps, goiter, pain and significant neck swelling RESPIRATORY: Negative for cough, hemoptysis, wheezing, dyspnea or shortness of breath CARDIOVASCULAR: Negative for chest pain, leg swelling, orthopnea, or palpitations GI: No nausea, vomiting, or diarrhea/constipation. No hematochezia/melena. No heartburn or reflux symptoms. : No history of dysuria, frequency or incontinence MUSCULOSKELETAL: Negative for joint pain or swelling. SKIN: + Skin lesion ENDOCRINE: Negative for cold or heat intolerance, polyuria, polydipsia and goiter NEURO: No history of headaches, syncope, paralysis, seizures or tremors MOOD: Negative for depression, anxiety, or suicidal ideation. EXAM: BP 96/62 Pulse 71 Resp 16 Wt 49 kg (108 lb) LMP 07/27/2013 SpO2 96% BMI 20.41 kg/m PHYSICAL EXAM: General Appearance: Well appearing, alert, in no acute distress, well-hydrated, well nourished. Skin: + 1x1 cm circular, dry, crusted, central clearing, lesion noted between shoulders. Mild erythema . Head: Normocephalic, no masses, lesions, tenderness or abnormalities. Eyes: Anicteric sclera. Extraocular movements are intact. Lungs: Lungs clear to auscultation. No wheezing, rhonchi, rales. Heart: RRR without murmur, gallop, or rubs. No ectopy. Extremities: No deformities, edema, skin discoloration, clubbing or cyanosis. Good capillary refill. Peripheral Pulses: Normal, Capillary refill <2secs, strong peripheral pulses, Pulses palpable. Neurologic: Gait normal. Sensation grossly intact.. ASSESSMENT/PLAN: 1. Contact dermatitis, unspecified contact dermatitis type, unspecified trigger - ICD9: 692.9, ICD10: L25.9 - Contact dermatitis versus fungal, lesion looks responsive to a steroid. - Topical steriod tx with Rx for steriod cream/ointment- see orders - discussed skin care of rash - follow up if symptoms persist or worsen. - TRIAMCINOLONE ACETONIDE 0.1 % TOPICAL CREAM Follow-up as needed or sooner if symptoms get worse or do not improve. Discussed treatment plan and patient voices understanding. Patient's questions answered appropriately. Medications and potential side effects were discussed and patient voices understanding. Bibi Del Castillo APRN.[facility] This note was partially generated using Animeeple voice recognition system. Note was reviewed for accuracy. There may be minor misspellings or grammar miscues with Animeeple voice recognition. documented in this encounter [facility] 10-15-2021 History of Present illness Narrative Patient presents with: Knee Swelling: X 3 days HPI: Patient presents today for office visit for acute visit. Sees Dr. Sarah for her RA who is off work this week. Noted increased pain. Started three or four days ago. Has been in an RA flare in hind sight for several weeks. Took one tramadol and a large amount of ibuprofen. It was in her ankles which is better. Still both knees. Swelling is better than it was. Using tiger balm. No redness. No injury. No fever. Not giving out. Has not increased her steroids. Quit by using laser acupuncture in [place]. Now six months out. MEDICATIONS: Current Outpatient Medications Medication Sig folic acid 1 mg tablet Take 1 tablet by mouth twice daily. SUMAtriptan Succinate (IMITREX STAT) 6 mg/0.5 mL cartridge Inject 0.5 mL subcutaneously once daily as needed. migraine predniSONE (DELTASONE) 1 mg tablet Take 4 mg by mouth once daily. alendronate (FOSAMAX) 70 mg tablet Take 1 tablet by mouth one time a week. Take with a full glass of water, on an empty stomach; do NOT lie down for 30minutes. CALCIUM ORAL Take 600 mg by mouth twice daily. albuterol HFA (PROAIR HFA) 90 mcg/actuation inhaler Inhale 2 Puffs as instructed every 4 hours as needed. ORENCIA CLICKJECT 125 mg/mL AutoInjector one time a week. BIOTIN ORAL Take by mouth. LEUCOVORIN CALCIUM ORAL Take 25 mg by mouth one time a week. Cholecalciferol, Vitamin D3, 1,000 unit cap Take 1,000 Units by mouth once daily. methotrexate 2.5 mg tablet Take 7 tablets by mouth every Tuesday. No current facility-administered medications for this visit. ALLERGIES: ALLERGIES Allergen Reactions Clindamycin Rash Aspirin Other: See Comments Scratch test at a child. Ciprofloxacin Rash, Hives Erythromycin Vomiting [id number] [Polyethyle* Intolerance Nausea Penicillins Other: See Comments Childhood allergy/cephalosporins are ok-has used in the past. Can take augmentin PAST MEDICAL HISTORY Diagnosis Date Asthma Endometriosis Menopause Migraine PUD (peptic ulcer disease) in high school Rheumatoid arthritis (HCC) Dr. Sarah PAST SURGICAL HISTORY Procedure Laterality Date BREAST AUGMENTATION W/PROSTHETIC IMPLANT ELBOW SURGERY HX 07/14/2016, 11/10/2016 tendons and nerve torn from bone LAPAROSCOPY DIAGNOSTIC 1994 PAST SURGICAL HISTORY OF deviated septum/sinus PAST SURGICAL HISTORY OF impacted wisdom teeth FAMILY HISTORY Problem Relation Age of Onset other (RA) Mother other (Hypothyroid) Mother other (chrones) Mother Cancer Father lung with brain mestastases Cancer Sister Thyroid Social History Tobacco Use Smoking status: Former Smoker Packs/day: 1.00 Years: 20.00 Pack years: 20.00 Quit date: 04/14/2021 Years since quittin.5 Smokeless tobacco: Never Used Substance Use Topics Alcohol use: No Drug use: No Reviewed current medications, allergies, past medical history, surgical history, family history and social history today. REVIEW OF SYSTEMS All other reviewed and negative other than HPI. VITALS: BP 124/70 Pulse 74 Resp 14 Wt 49 kg (108 lb) LMP 07/27/2013 BMI 20.41 kg/m Last 4 Encounter Wt Readings: Date: Wt: 10/15/2021 49 kg (108 lb) 08/20/2021 49 kg (108 lb) 01/27/2021 45.6 kg (100 lb 9.6 oz) 01/23/2020 46.3 kg (102 lb) PHYSICAL EXAMINATION: General appearance: Well appearing, alert, in no acute distress, well-hydrated, well nourished. Skin: Skin color, texture, turgor normal, no suspicious rashes or lesions Extremities: both knees are examined. Negative meniscal or ligamental instability. Small effusion on left. No redness or warmth. Negative drawer signs. Peripheral pulses: Normal Neuro: Negative. ASSESSMENT/PLAN: 1. Acute pain of both knees - ICD9: 338.19, 719.46, ICD10: M25.561, M25.562 (primary diagnosis) - Red flags for re-assessment reviewed with patient in detail. No need for aspiration Discussed risks and benefits of new medication with the patient. Advised them to call if any side effects or questions. - PREDNISONE 10 MG TABLET- use taper and resume meds. - XR KNEE GENERAL 4V AP BOTH/PA BOTH/LAT/MERC BILATERAL 2. Rheumatoid arthritis involving multiple sites with positive rheumatoid factor (HCC) - ICD9: 714.0, ICD10: M05.79 - stable Santino Elizondo Medical Decision Making: Problems: Moderate: New problem with uncertain prognosis Data: Unique test(s) ordered: 1 Risk: Moderate: Drug management Medical Decision Making Level: 4 - Moderate documented in this encounter [facility] 10-05-2021 Miscellaneous Notes Patient has been identified by name and date of : Yes Pending Prescriptions Disp Refills SUMATRIPTAN 6 MG/0.5 ML SUBCUTANEOUS CARTRIDGE (REFILL) 1 mL 5 Sig: Inject 0.5 mL subcutaneously once daily as needed. migraine MALLORY: No RX INSTRUCTIONS: Patient aware RX will be sent to pharmacy. No need to notify patient. [place] Rai MA Tal: 08/2021 Nov: 02/2022 Last refill: 11/2019 documented in this encounter [facility] 08-20-2021 History of Present illness Narrative 56 year old female with c/o here for follow up. Has been doing really well. Feels better than she has in years Quit Smoking in March!! 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 Negative for Covid 19. Recovered well. Rheumatoid arthritis involving multiple sites with positive rheumatoid factor (hcc) (primary encounter diagnosis) Dr. Sarah Current medications: Prednisone 1mg 4 tabs daily Orencia 125mg/mL once a week MTX 2.5mg 7 tabs every Sat Leucovorin calcium 25mg daily Folic acid 1 mg daily Biotin 10mg daily Osteoporosis, unspecified osteoporosis type, unspecified pathological fracture presence Current medications: aledronate 70mg weekly Calcium 600mg twice a day Vit D 1000u daily 01/22/2021 BMD osteoporosis in left hip Iatrogenic nely's disease (hcc) Migraine without aura and without status migrainosus, not intractable Current medications: Sumatriptan 6mg SC One migraine in last year, 2 weeks ago Pud (peptic ulcer disease) No abdominal pain, heartburn, reflux. BM daily, brown, formed. Current medications: Albuterol MDI: on uses with bronchitis HISTORIES FAMILY HISTORY Problem Relation Age of Onset other (RA) Mother other (Hypothyroid) Mother other (chrones) Mother Cancer Father lung with brain mestastases Cancer Sister Thyroid PAST MEDICAL HISTORY Diagnosis Date Asthma Endometriosis Menopause Migraine PUD (peptic ulcer disease) in high school Rheumatoid arthritis (HCC) Dr. Sarah PAST SURGICAL HISTORY Procedure Laterality Date BREAST AUGMENTATION W/PROSTHETIC IMPLANT ELBOW SURGERY HX 07/14/2016, 11/10/2016 tendons and nerve torn from bone LAPAROSCOPY DIAGNOSTIC 1994 PAST SURGICAL HISTORY OF deviated septum/sinus PAST SURGICAL HISTORY OF impacted wisdom teeth Social History Tobacco Use Smoking status: Current Every Day Smoker Packs/day: 1.00 Years: 20.00 Pack years: 20.00 Last attempt to quit: 06/11/2018 Years since quittin.1 Smokeless tobacco: Never Used Substance Use Topics Alcohol use: No Drug use: No ACTIVE PROBLEM LIST Symptomatic Menopausal Or Female Climacteric States Migraine Asthma Pud (Peptic Ulcer Disease) Endometriosis Menopause Right Shoulder Pain 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 Take with a full glass of water, on an empty stomach; do NOT lie down for 30minutes. 12 tablet 0 pseudoephedrine-guaiFENesin (MUCINEX D) 60-600 mg per tablet Take 1 tablet by mouth every 12 hours as needed for cold/allergy symptoms. 18 tablet 1 SUMAtriptan Succinate (IMITREX STAT) 6 mg/0.5 mL cartridge Inject 0.5 mL subcutaneously once daily as needed. migraine 1 mL 5 CALCIUM ORAL Take 600 mg by mouth twice daily. predniSONE (DELTASONE) 5 mg tablet Take 0.5 tablets by mouth once daily. (Patient taking differently: Take 1 mg by mouth three times daily. ) albuterol HFA (PROAIR HFA) 90 mcg/actuation inhaler Inhale 2 Puffs as instructed every 4 hours as needed. 1 Inhaler 1 ORENCIA CLICKJECT 125 mg/mL AutoInjector one time a week. BIOTIN ORAL Take by mouth. LEUCOVORIN CALCIUM ORAL Take 25 mg by mouth one time a week. Cholecalciferol, Vitamin D3, 1,000 unit cap Take 1,000 Units by mouth once daily. prochlorperazine (COMPRO) 25 mg suppository 1 Suppository by RECTAL route every 12 hours as needed. 12 Suppository 0 methotrexate 2.5 mg tablet Take 7 tablets by mouth every Tuesday. 0 folic acid 1 mg tablet Take 1 tablet by mouth once daily. (Patient taking differently: Take 1 mg by mouth twice daily. ) 0 No current facility-administered medications for this visit. SPIROMETRY Never done HEPATITIS C SCREENING Never done HIV SCREENING Never done DTAP,TDAP,TD(1 - Tdap) Never done SHINGRIX VACCINE(1 of 2) Never done COLORECTAL CANCER SCREENING Never done LUNG CANCER SCREENING Never done PNEUMOCOCCAL(2 - PCV) due on 07/12/2015 LIPID SCREEN due on 09/08/2017 DEPRESSION SCREENING due on 02/27/2020 COVID-19 VACCINE(3 - Moderna risk series) due on 07/23/2020 MAMMOGRAM due on 11/13/2021 EXAM: BP 108/56 Pulse 72 Wt 49 kg (108 lb) LMP 07/27/2013 SpO2 98% BMI 20.41 kg/m Pleasant thin adult woman in no acute distress. Alert and oriented all spheres. Normal affect and cognition. Speech normal. No deficits to learning or comprehension. Skin warm, dry, pink to lips and nailbeds. Normal turgor. Respirations regular and unlabored. HEENT: NCAT. No scleral icterus or conjunctival injection. TM's clear. Nose and oropharynx free from injection or lesion. Oral membranes moist and pink. No cervical lymph nodes. Thyroid non-tender, no masses, or enlargement. Carotids pulses 2+/4+ without bruits. Chest is normal shape. Lungs are clear to all alcantar with good air exchange through out. HRRR without murmur or gallop. No lifts, heaves, or rubs. Extrem: no clubbing or cyanosis. Edema: none. Extremities are warm and pink with prompt capillary refill. No swollen or erythematous joints noted. ASSESSMENT/PLAN: 1. Rheumatoid arthritis involving multiple sites with positive rheumatoid factor (HCC) - ICD9: 714.0, ICD10: M05.79 (primary diagnosis) Baseline good control- sees rheumatology 2. Osteoporosis, unspecified osteoporosis type, unspecified pathological fracture presence - ICD9: 733.00, ICD10: M81.0 Other osteoporosis without current pathological fracture - ICD9: 733.09, ICD10: M81.8 - Reviewed the need for Calcium and Vitamin D supplements and weight bearing exercise as tolerated - ALENDRONATE 70 MG TABLET 3. 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 Migraine without aura and without status migrainosus, not intractable - ICD9: 346.10, ICD10: G43.009 Stable with decreased frequentcy 5. PUD (peptic ulcer disease) - ICD9: 533.90, ICD10: K27.9 Asymptomatic 6. Screening for colon cancer - ICD9: V76.51, ICD10: Z12.11 - COLOGUARD F/u 6 months Solange Kruger PA-C [facility] Diagnosis Migraine without aura and without status migrainosus, not intractable Migraine without aura, without mention of intractable migraine without mention of status migrainosus [facility] Diagnosis Acute pain of both knees- Primary Rheumatoid arthritis involving multiple sites with positive rheumatoid factor (HCC) [facility] Diagnosis Contact dermatitis, unspecified contact dermatitis type, unspecified trigger- Primary [facility] Diagnosis Encounter for screening [facility]ogram for breast cancer [facility] Diagnosis Hyperinflation of lungs- Primary Other symptoms involving respiratory system and chest Rheumatoid arthritis involving multiple sites with positive rheumatoid factor (HCC) Current chronic use of systemic steroids Osteoporosis, unspecified osteoporosis type, unspecified pathological fracture presence 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 Adrenal suppression (HCC) Glucocorticoid deficiency Migraine without aura and without status migrainosus, not intractable Migraine without aura, without mention of intractable migraine without mention of status migrainosus Mild intermittent asthma without complication Unspecified asthma PUD (peptic ulcer disease) Peptic ulcer, unspecified site, unspecified as acute or chronic, without mention of hemorrhage, perforation, or obstruction Chest pain, unspecified type Bullous emphysema (HCC) Emphysematous bleb documented in [facility]* Diagnosis URI, acute- Primary Acute upper respiratory infections of unspecified site [facility] Diagnosis Hyperinflation of lungs- Primary Other symptoms involving respiratory system and chest Bullous emphysema (HCC) Emphysematous bleb Rheumatoid arthritis involving multiple sites with positive rheumatoid factor (HCC) Current chronic use of systemic steroids Iatrogenic Nely's disease (HCC) Nely's syndrome Osteoporosis, unspecified osteoporosis type, unspecified pathological fracture presence Migraine without aura and without status migrainosus, not intractable Migraine without aura, without mention of intractable migraine without mention of status migrainosus Mild intermittent asthma without complication Unspecified asthma PUD (peptic ulcer disease) Peptic ulcer, unspecified site, unspecified as acute or chronic, without mention of hemorrhage, perforation, or obstruction Symptomatic menopausal or female climacteric states Endometriosis Endometriosis, site unspecified Wellness examination Other type of migraine Encounter for screening for lung cancer Special screening examination for viral disease Special screening examination for unspecified viral disease Screening for lipid disorders Screening for diabetes mellitus documented in [facility]* Diagnosis Treatment not available- Primary Procedure not carried out for other reasons documented in this encounter [facility]* Diagnosis Flu-like symptoms- Primary Other general symptoms Sore throat Acute pharyngitis documented in this encounter [facility]* Diagnosis Migraine without aura and without status migrainosus, not intractable Migraine without aura, without mention of intractable migraine without mention of status migrainosus [facility] Diagnosis Upper respiratory tract infection due to COVID-19 virus- Primary 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) [place]'s syndrome [facility]* Diagnosis Bacterial sinusitis- Primary Unspecified sinusitis (chronic) documented in [facility]* Diagnosis Dizziness- Primary Dizziness and giddiness [facility]* Diagnosis Encounter for screening mammogram for breast cancer documented in this encounter [facility]* Diagnosis COPD with exacerbation (HCC)- Primary Obstructive chronic bronchitis with exacerbation Rhinosinusitis Unspecified sinusitis (chronic) documented in this encounter [facility]* Diagnosis Superficial foreign body of right hand, initial encounter- Primary documented in [facility] encounter [facility]* Diagnosis Osteoporosis, unspecified osteoporosis type, unspecified pathological fracture presence documented in this encounter [facility] for referral (narrative)* Diagnostic Procedure Only (Routine) - Closed Specialty Diagnoses / Procedures Referred By Gerry mckinnon Referred To Contact XR IMAGING Diagnoses Acute pain of both knees Procedures XR KNEE GENERAL 4V AP BOTH/PA BOTH/LAT/MERC BILATERAL RADIOLOGIC EXAM KNEE COMPLETE 4/MORE VIEWS Santino Elizondo MD [address] [place] [address] Xr Imaging Referral ID Status Reason Start Date Expiration Date V isits Requested Visits Authorized [id number] Closed Auto-Generate d Referral 10/15/2021 11/14/2022 1 1 [facility] for referral (narrative)* Diagnostic Procedure Only (Routine) - Pending Review Specialty Diagnoses / Procedures Referred By Gerry mckinnon Referred To Contact [facility] Diagnoses Encounter for screening mammogram for breast cancer Procedures SASCHA SCREENING W ARASELI SCREENING DIGITAL BREAST TOMOSYNTHESIS BI SCREENING MAMMOGRAPHY BI 2-VIEW BREAST INC CAD Solange Kruger PA-C [address] [place] [address] [facility] [address] [place] [address] Referral ID Status Reason Start Date Expiration Date Visits Requested Visits Authorized [id number] Pending Review Auto-Generat ed Referral 01/22/2023 1 1 [facility] for referral (narrative)* Outpatient Procedure (Routine) - Closed Specialty Diagnoses / Procedures Referred By Contac t Referred To Contact [facility] Diagnoses Chest pain, unspecified type Procedures ECG COMPLETE ECG ROUTINE ECG W/LEAST 12 LDS W/I&R Solange Kruger PA-C [address] [place] [address] [facility] [address] [place] [address] Referral ID Status Reason Start Date Expiration Date V isits Requested Visits Authorized [id number] Closed Auto-Generate d Referral 02/18/2022 02/18/2023 1 1 [facility] for referral (narrative)* Diagnostic Procedure Only (Routine) - Pending Review Specialty Diagnoses / Procedures Referred By Gerry t Referred To Contact [facility] Diagnoses Encounter for screening mammogram for breast cancer Procedures SASCHA SCREENING W ARASELI SCREENING DIGITAL BREAST TOMOSYNTHESIS BI SCREENING MAMMOGRAPHY BI 2-VIEW BREAST INC CAD Solange Kruger PA-C [address] [place] [address] [facility] [address] [place] [address] Referral ID Status Reason Start Date Expiration Date Visits Requested Visits Authorized [id number] Pending Review Auto-Generat ed Referral 12/01/2022 12/31/2023 1 1 [facility] Summary Purpose Family History No Family History Records FoundNo Family History Records FoundNo Family History Records FoundNo Family History Records Found Advance Directives No Advanced Directives Records FoundNo Advanced Directives Records FoundNo Advanced Directives Records FoundNo Advanced Directives Records Found Health Concerns Infection Onset Date Last Indicated Resolved Time COVID-19 Confirmed 05/03/2022 05/03/2022 Additional Source Comments INFORMATION SOURCE (unrecogn ized section and content) DATE CREATED AUTHOR AUTHOR'S ORGANIZ ATION 10/14/2018 [facility] DATE CREATED AUTHOR AUTHOR'S ORGANIZ ATION 12/18/2019 [facility] DATE CREATED AUTHOR AUTHOR'S ORGANIZ ATION 04/19/2023 [facility] Source Comments (unrecognize d section and content) In the event this informatio n is protected by the Federal Confidentiality of Alcohol and Drug Abuse Patient Records regulations: The Federal rules restrict any use of the information to criminally investigate or prosecute any alcohol or drug abuse patient.[facility] the event this information is protected by the Federal Confidentiality of Alcohol and Drug Abuse Patient Records regulations: The Federal rules restrict any use of the information to criminally investigate or prosecute any alcohol or drug abuse patient.[facility] the event this information is protected by the Federal Confidentiality of Alcohol and Drug Abuse Patient Records regulations: The Federal rules restrict any use of the information to criminally investigate or prosecute any alcohol or drug abuse patient.[facility] the event this information is protected by the Federal Confidentiality of Alcohol and Drug Abuse Patient Records regulations: The Federal rules restrict any use of the information to criminally investigate or prosecute any alcohol or drug abuse patient.[facility] the event this information is protected by the Federal Confidentiality of Alcohol and Drug Abuse Patient Records regulations: The Federal rules restrict any use of the information to criminally investigate or prosecute any alcohol or drug abuse patient.[facility] the event this information is protected by the Federal Confidentiality of Alcohol and Drug Abuse Patient Records regulations: The Federal rules restrict any use of the information to criminally investigate or prosecute any alcohol or drug abuse patient.[facility] the event this information is protected by the Federal Confidentiality of Alcohol and Drug Abuse Patient Records regulations: The Federal rules restrict any use of the information to criminally investigate or prosecute any alcohol or drug abuse patient.[facility] the event this information is protected by the Federal Confidentiality of Alcohol and Drug Abuse Patient Records regulations: The Federal rules restrict any use of the information to criminally investigate or prosecute any alcohol or drug abuse patient.[facility] the event this information is protected by the Federal Confidentiality of Alcohol and Drug Abuse Patient Records regulations: The Federal rules restrict any use of the information to criminally investigate or prosecute any alcohol or drug abuse patient.[facility] the event this information is protected by the Federal Confidentiality of Alcohol and Drug Abuse Patient Records regulations: The Federal rules restrict any use of the information to criminally investigate or prosecute any alcohol or drug abuse patient.[facility] the event this information is protected by the Federal Confidentiality of Alcohol and Drug Abuse Patient Records regulations: The Federal rules restrict any use of the information to criminally investigate or prosecute any alcohol or drug abuse patient.[facility] Center[facility] the event this information is protected by the Federal Confidentiality of Alcohol and Drug Abuse Patient Records regulations: The Federal rules restrict any use of the information to criminally investigate or prosecute any alcohol or drug abuse patient.[facility] Center[facility] the event this information is protected by the Federal Confidentiality of Alcohol and Drug Abuse Patient Records regulations: The Federal rules restrict any use of the information to criminally investigate or prosecute any alcohol or drug abuse patient.[facility] the event this information is protected by the Federal Confidentiality of Alcohol and Drug Abuse Patient Records regulations: The Federal rules restrict any use of the information to criminally investigate or prosecute any alcohol or drug abuse patient.[facility] Center[facility] the event this information is protected by the Federal Confidentiality of Alcohol and Drug Abuse Patient Records regulations: The Federal rules restrict any use of the information to criminally investigate or prosecute any alcohol or drug abuse patient.[facility] Center[facility] the event this information is protected by the Federal Confidentiality of Alcohol and Drug Abuse Patient Records regulations: The Federal rules restrict any use of the information to criminally investigate or prosecute any alcohol or drug abuse patient.[facility] Center[facility] the event this information is protected by the Federal Confidentiality of Alcohol and Drug Abuse Patient Records regulations: The Federal rules restrict any use of the information to criminally investigate or prosecute any alcohol or drug abuse patient.[facility] Center[facility] the event this information is protected by the Federal Confidentiality of Alcohol and Drug Abuse Patient Records regulations: The Federal rules restrict any use of the information to criminally investigate or prosecute any alcohol or drug abuse patient.[facility] Center[facility] the event this information is protected by the Federal Confidentiality of Alcohol and Drug Abuse Patient Records regulations: The Federal rules restrict any use of the information to criminally investigate or prosecute any alcohol or drug abuse patient.[facility] Center[facility] the event this information is protected by the Federal Confidentiality of Alcohol and Drug Abuse Patient Records regulations: The Federal rules restrict any use of the information to criminally investigate or prosecute any alcohol or drug abuse patient.[facility] CenterIn the event this information is protected by the Federal Confidentiality of Alcohol and Drug Abuse Patient Records regulations: The Federal rules restrict any use of the information to criminally investigate or prosecute any alcohol or drug abuse patient.[facility] Center[facility] the event this information is protected by the Federal Confidentiality of Alcohol and Drug Abuse Patient Records regulations: The Federal rules restrict any use of the information to criminally investigate or prosecute any alcohol or drug abuse patient.[facility] Center[facility] the event this information is protected by the Federal Confidentiality of Alcohol and Drug Abuse Patient Records regulations: The Federal rules restrict any use of the information to criminally investigate or prosecute any alcohol or drug abuse patient.[facility] CenterIn the event this information is protected by the Federal Confidentiality of Alcohol and Drug Abuse Patient Records regulations: The Federal rules restrict any use of the information to criminally investigate or prosecute any alcohol or drug abuse patient.[facility] CenterIn the event this information is protected by the Federal Confidentiality of Alcohol and Drug Abuse Patient Records regulations: The Federal rules restrict any use of the information to criminally investigate or prosecute any alcohol or drug abuse patient.[facility] CenterIn the event this information is protected by the Federal Confidentiality of Alcohol and Drug Abuse Patient Records regulations: The Federal rules restrict any use of the information to criminally investigate or prosecute any alcohol or drug abuse patient.[facility] CenterIn the event this information is protected by the Federal Confidentiality of Alcohol and Drug Abuse Patient Records regulations: The Federal rules restrict any use of the information to criminally investigate or prosecute any alcohol or drug abuse patient.[facility] Care Teams (unrecognized sec tion and content) Failure Analysis Technician Relationship Specialty Start Date End Date Solange Kruger PA-C [address] [place] [address] PCP - General Family Practice 08/03/18 Failure Analysis Technician Relationship Specialty Start Date End Date Solange Kruger PA-C [address] [place] [address] PCP - General Family Practice 08/03/18 Failure Analysis Technician Relationship Specialty Start Date End Date Solange Kruger PA-C [address] [place] [address] PCP - General Family Practice 08/03/18 Failure Analysis Technician Relationship Specialty Start Date End Date Solange Kruger PA-C [address] [place] [address] PCP - General Family Medicine 08/03/18 Failure Analysis Technician Relationship Specialty Start Date End Date Solange Kruger PA-C [address] [place] [address] PCP - General Family Medicine 08/03/18 Failure Analysis Technician Relationship Specialty Start Date End Date Solange Kruger PA-C [address] [facility] [place] [address] PCP - General Family Medicine 08/03/18 Failure Analysis Technician Relationship Specialty Start Date End Date Solange Kruger PA-C [address] [place] [address] PCP - General Family Medicine 08/03/18 Failure Analysis Technician Relationship Specialty Start Date End Date Solange Kruger PA-C [address] [place] [address] PCP - General Family Medicine 08/03/18 Failure Analysis Technician Relationship Specialty Start Date End Date Solange Kruger PA-C [address] [place] [address] PCP - General Family Medicine 08/03/18 Failure Analysis Technician Relationship Specialty Start Date End Date Solange Kruger PA-C [address] [place] [address] PCP - General Family Medicine 08/03/18 Failure Analysis Technician Relationship Specialty Start Date End Date Solange Kruger PA-C [address] [place] [address] PCP - General Family Medicine 08/03/18 Failure Analysis Technician Relationship Specialty Start Date End Date Solange Kruger PA-C [address] [place] [address] PCP - General Family Medicine 08/03/18 Failure Analysis Technician Relationship Specialty Start Date End Date Solange Kruger PA-C [address] [place] [address] PCP - General Family Medicine 08/03/18 Failure Analysis Technician Relationship Specialty Start Date End Date Solange Kruger PA-C [address] [place] [address] PCP - General Family Medicine 08/03/18 Failure Analysis Technician Relationship Specialty Start Date End Date Solange Kruger PA-C [address] [place] [address] PCP - General Family Medicine 08/03/18 Failure Analysis Technician Relationship Specialty Start Date End Date Solange Kruger PA-C [address] [facility] [place], [place] [address] PCP - General Family Medicine 08/03/18 Failure Analysis Technician Relationship Specialty Start Date End Date Solange Kruger PA-C [address] [facility], [place] [address] PCP - General Family Medicine 08/03/18 Failure Analysis Technician Relationship Specialty Start Date End Date Solange Kruger PA-C [address] [facility], [place] [address] PCP - General Family Medicine 08/03/18 Failure Analysis Technician Relationship Specialty Start Date End Date Solange Kruger PA-C [address] [facility], [place] [address] PCP - General Family Medicine 08/03/18 Failure Analysis Technician Relationship Specialty Start Date End Date Solange Kruger PA-C [address] [facility], [place] [address] PCP - General Family Medicine 08/03/18 Failure Analysis Technician Relationship Specialty Start Date End Date Solange Kruger PA-C [address] [facility], [place] [address] PCP - General Family Medicine 08/03/18 Failure Analysis Technician Relationship Specialty Start Date End Date Solange Kruger PA-C [address] [facility], [place] [address] PCP - General Family Medicine 08/03/18 Reason for Visit (unrecogniz ed section and content) Reason Comments Knee Swelling X 3 days Reason Comments Acute Visit Red spot on my back Reason Comments 6 Month Exam Rash Still has rash on ba ck. Now has 4 spots. Reason Comments Nasal Congestion Reason Comments Erroneous encounter-disregard Reason Comments Physical Reason Comments Forms FMLA Reason Comments Sinusitis Reason Comments Cough Sinus congestion, fe lolis, chills, bodyaches, vomiting x2 days Reason Onset Date Comments Refill Request 05/03/2022 Reason Comments Results Reason Comments Covid Follow Up Reason Comments Refill Request Reason Comments Dizziness Reason Comments Sinus Problem Cough and congestion . X2 days. Reason Comments splinter right index finger X 8 days FOR RECORDS PERTAINING TO PATIENTS WHO ARE OR HAVE BEEN ENROLLED IN A CHEMICAL DEPENDENCY/SUBSTANCEABUSE PROGRAM, SOME INFORMATION MAY BE OMITTED. This clinical summary was aggregated from multiple sources. Caution should be exercised in using it in the provision of clinical care. This summary normalizes information from multiple sources, and as a consequence, information in this document may materially change the coding, format and clinical context of patient data. In addition, data may be omitted in some cases. CLINICAL DECISIONS SHOULD BE BASED ON THE PRIMARY CLINICAL RECORDS. [facility]. provides no warranty or guarantee of the accuracy or completeness of information in this document.
== END | disposition home or self-care (01) ==
PROVIDERS: PCP Physician Assistant; Referring Provider Internal Medicine Rheumatology; Visit Provider Internal Medicine Rheumatology
DX: M06.09 Rheumatoid arthritis without rheumatoid factor, multiple sites (principal); Z79.899 Other long term (current) drug therapy
CPT/HCPCS: 36415; 80053; 85025

== ENCOUNTER → 2023-08-17 | Outpatient (CLI) | payer OTHER, SELFPAY ==
[2023-08-17 17:34] LABS: Absolute Lymphocyte Count 2.63 X10^3/uL (0.83-4.51); Absolute Neutrophil Count 4.1 X10^3/uL (2.0-7.7); Basophil# 0.02 X10^3/uL; Basophil% 0.3 % (0-1); Eosinophil# 0.03 X10^3/uL; Eosinophils% 0.4 % (0-5); Hematocrit 37.3 % (37-47); Hemoglobin 12.2 g/dL (12.0-15.0); Lymphocyte # 2.63 X10^3/ul (0.83-4.51); Lymphocyte % 35.5 % (19-41); Mean Corp Hgb Conc 32.7 g/dL (32-36); Mean Corpuscular Hgb 31.4 pg (27.0-32.0); Mean Corpuscular Volume 95.9 fL (81-99); Mean Platelet Vol. 9.3 fl (6.2-12.0); Monocyte# 0.58 X10^3/uL; Monocyte% 7.8 % (0-10); NRBC Flagged by Analyzer 0 % (0-5); Neutrophil # 4.12 X10^3/uL (2.7-7.7); Neutrophil % 55.7 % (47-70); Platelet Count 268 K/mm3 (150-450); RBC Distribution Width CV 14.7 % (11.6-14.6); RBC Distribution Width SD 50.9 fl (35.1-43.9); Red Blood Count 3.89 M/mm3 (4.2-5.4); White Blood Count 7.4 K/mm3 (4.4-11.0)
[2023-08-17 18:12] LABS: ALB/GLOB Ratio 1.4 RATIO (0.9-2.4); AST(SGOT) 23 U/L (15-37); Alanine Aminotransfer ALT/SGPT 25 U/L (13-56); Albumin, Serum 3.7 g/dL (3.2-5.0); Alkaline Phosphatase 61 U/L (45-117); Anion Gap 7 (5-15); BUN 14 mg/dL (7-18); BUN/Creat Ratio 18.6 RATIO (10-20); Chloride 105 mmol/L (98-107); Creatinine, Serum 0.75 mg/dL (0.55-1.02); EST Glomerular Filtration Rate 84 mL/min (>60); Est Glom Filt Rate - Afr Amer 102 mL/min (>60); Globulin 2.7 g/dL (2.2-4.2); Glucose 85 mg/dL (74-106); Potassium 3.7 mmol/L (3.5-5.1); Protein, Total 6.4 g/dL (6.4-8.2); Sodium Level 138 mmol/L (136-145)
== END | disposition home or self-care (01) ==
LOC: MTLAB 15:43
PROVIDERS: PCP Physician Assistant; Referring Provider Internal Medicine Rheumatology; Visit Provider Internal Medicine Rheumatology
DX: M06.09 Rheumatoid arthritis without rheumatoid factor, multiple sites (principal); Z79.899 Other long term (current) drug therapy
CPT/HCPCS: 36415; 80053; 85025

== ENCOUNTER → 2023-11-15 | Outpatient (CLI) | payer OTHER, SELFPAY ==
[2023-11-15 17:46] LABS: Absolute Lymphocyte Count 2.59 X10^3/uL (0.83-4.51); Absolute Neutrophil Count 5.1 X10^3/uL (2.0-7.7); Basophil# 0.02 X10^3/uL; Basophil% 0.2 % (0-1); Eosinophil# 0.03 X10^3/uL; Eosinophils% 0.4 % (0-5); Hematocrit 38.6 % (37-47); Hemoglobin 12.7 g/dL (12.0-15.0); Lymphocyte # 2.59 X10^3/ul (0.83-4.51); Mean Corp Hgb Conc 32.9 g/dL (32-36); Mean Corpuscular Hgb 31.8 pg (27.0-32.0); Mean Corpuscular Volume 96.5 fL (81-99); Mean Platelet Vol. 9.1 fl (6.2-12.0); Monocyte# 0.62 X10^3/uL; Monocyte% 7.4 % (0-10); NRBC Flagged by Analyzer 0 % (0-5); Neutrophil # 5.08 X10^3/uL (2.7-7.7); Neutrophil % 60.8 % (47-70); Platelet Count 273 K/mm3 (150-450); RBC Distribution Width CV 13.8 % (11.6-14.6); RBC Distribution Width SD 48.3 fl (35.1-43.9); White Blood Count 8.4 K/mm3 (4.4-11.0)
[2023-11-15 18:23] LABS: ALB/GLOB Ratio 1.5 RATIO (0.9-2.4); AST(SGOT) 22 U/L (15-37); Alanine Aminotransfer ALT/SGPT 23 U/L (13-56); Alkaline Phosphatase 64 U/L (45-117); Anion Gap 5 (5-15); BUN 15 mg/dL (7-18); Calcium,Total 9.5 mg/dL (8.5-10.1); Chloride 101 mmol/L (98-107); Creatinine, Serum 0.83 mg/dL (0.55-1.02); EST Glomerular Filtration Rate 75 mL/min (>60); Est Glom Filt Rate - Afr Amer 90 mL/min (>60); Globulin 2.7 g/dL (2.2-4.2); Glucose 94 mg/dL (74-106); Potassium 3.6 mmol/L (3.5-5.1); Protein, Total 6.7 g/dL (6.4-8.2); Sodium Level 137 mmol/L (136-145)
== END | disposition home or self-care (01) ==
LOC: MTLAB 15:31
PROVIDERS: PCP Physician Assistant; Referring Provider Internal Medicine Rheumatology; Visit Provider Internal Medicine Rheumatology
DX: M06.00 Rheumatoid arthritis without rheumatoid factor, unspecified site (principal); M18.11 Unilateral primary osteoarthritis of first carpometacarpal joint, right hand; Z79.899 Other long term (current) drug therapy
CPT/HCPCS: 36415; 80053; 85025

== ENCOUNTER 2024-02-15 08:31 | Outpatient (RCR) | payer OTHER, SELFPAY ==
[2024-02-15 10:41] LABS: Absolute Neutrophil Count 6.2 X10^3/uL (2.0-7.7); Basophil# 0.02 X10^3/uL; Basophil% 0.3 % (0-1); Eosinophil# 0.03 X10^3/uL; Eosinophils% 0.4 % (0-5); Hematocrit 43.3 % (37-47); Lymphocyte % 16.6 % (19-41); Mean Corp Hgb Conc 32.3 g/dL (32-36); Mean Corpuscular Hgb 31.1 pg (27.0-32.0); Mean Corpuscular Volume 96.2 fL (81-99); Mean Platelet Vol. 9.3 fl (6.2-12.0); Monocyte# 0.27 X10^3/uL; Monocyte% 3.5 % (0-10); NRBC Flagged by Analyzer 0 % (0-5); Neutrophil # 6.16 X10^3/uL (2.7-7.7); Neutrophil % 78.8 % (47-70); Platelet Count 301 K/mm3 (150-450); RBC Distribution Width CV 13.5 % (11.6-14.6); RBC Distribution Width SD 47.7 fl (35.1-43.9); White Blood Count 7.8 K/mm3 (4.4-11.0)
[2024-02-15 11:16] LABS: ALB/GLOB Ratio 1.5 RATIO (0.9-2.4); AST(SGOT) 26 U/L (15-37); Alanine Aminotransfer ALT/SGPT 32 U/L (13-56); Albumin, Serum 4.1 g/dL (3.2-5.0); Alkaline Phosphatase 66 U/L (45-117); Anion Gap 5 (5-15); BUN 15 mg/dL (7-18); BUN/Creat Ratio 20.5 RATIO (10-20); Calcium,Total 9.8 mg/dL (8.5-10.1); Chloride 106 mmol/L (98-107); Creatinine, Serum 0.73 mg/dL (0.55-1.02); EST Glomerular Filtration Rate 87 mL/min (>60); Est Glom Filt Rate - Afr Amer 105 mL/min (>60); Globulin 2.7 g/dL (2.2-4.2); Glucose 116 mg/dL (74-106); Potassium 4.7 mmol/L (3.5-5.1); Protein, Total 6.8 g/dL (6.4-8.2); Sodium Level 140 mmol/L (136-145)
== END 2024-02-15 18:00 | disposition home or self-care (01) ==
LOC: MTLAB 08:31
PROVIDERS: PCP Physician Assistant; Referring Provider Internal Medicine Rheumatology; Visit Provider Internal Medicine Rheumatology
DX: Z79.899 Other long term (current) drug therapy (principal); M18.11 Unilateral primary osteoarthritis of first carpometacarpal joint, right hand; M06.00 Rheumatoid arthritis without rheumatoid factor, unspecified site
CPT/HCPCS: 36415; 80053; 85025

== ENCOUNTER → 2024-03-30 | Outpatient (CLI) | payer BC, SELFPAY ==
[2024-03-30 17:40] LABS: Absolute Lymphocyte Count 2.66 X10^3/uL (0.83-4.51); Absolute Neutrophil Count 5.8 X10^3/uL (2.0-7.7); Basophil# 0.02 X10^3/uL; Basophil% 0.2 % (0-1); Eosinophil# 0.04 X10^3/uL; Eosinophils% 0.4 % (0-5); Hematocrit 42.2 % (37-47); Hemoglobin 13.8 g/dL (12.0-15.0); Lymphocyte # 2.66 X10^3/ul (0.83-4.51); Lymphocyte % 28.9 % (19-41); Mean Corp Hgb Conc 32.7 g/dL (32-36); Mean Corpuscular Hgb 31.4 pg (27.0-32.0); Mean Corpuscular Volume 96.1 fL (81-99); Mean Platelet Vol. 9.3 fl (6.2-12.0); Monocyte# 0.68 X10^3/uL; Monocyte% 7.4 % (0-10); NRBC Flagged by Analyzer 0 % (0-5); Neutrophil # 5.78 X10^3/uL (2.7-7.7); Neutrophil % 62.7 % (47-70); Platelet Count 355 K/mm3 (150-450); RBC Distribution Width CV 14.1 % (11.6-14.6); RBC Distribution Width SD 49.6 fl (35.1-43.9); Red Blood Count 4.39 M/mm3 (4.2-5.4); White Blood Count 9.2 K/mm3 (4.4-11.0)
[2024-03-30 17:54] LABS: ALB/GLOB Ratio 1.4 RATIO (0.9-2.4); AST(SGOT) 29 U/L (15-37); Alanine Aminotransfer ALT/SGPT 29 U/L (13-56); Alkaline Phosphatase 72 U/L (45-117); Anion Gap 3 (5-15); BUN 14 mg/dL (7-18); BUN/Creat Ratio 19.8 RATIO (10-20); Calcium,Total 9.8 mg/dL (8.5-10.1); Chloride 102 mmol/L (98-107); Creatinine, Serum 0.71 mg/dL (0.55-1.02); EST Glomerular Filtration Rate 90 mL/min (>60); Est Glom Filt Rate - Afr Amer 109 mL/min (>60); Globulin 2.9 g/dL (2.2-4.2); Glucose 87 mg/dL (74-106); Protein, Total 6.9 g/dL (6.4-8.2); Sodium Level 136 mmol/L (136-145)
== END | disposition home or self-care (01) ==
LOC: MTLAB 15:34
PROVIDERS: PCP Physician Assistant; Referring Provider Internal Medicine Rheumatology; Visit Provider Internal Medicine Rheumatology
DX: M06.00 Rheumatoid arthritis without rheumatoid factor, unspecified site (principal); Z79.899 Other long term (current) drug therapy
CPT/HCPCS: 36415; 80053; 85025; 86480

== ENCOUNTER → 2024-04-13 | Outpatient (CLI) | payer BC, SELFPAY ==
[2024-04-16 13:07] LABS: QNTFERON TB Mitogen Value > 10.00 IU/mL (.); QNTFERON TB Nil Value 0 IU/mL (.); QNTFERON TB1+ Ag Value 0 IU/mL (.); QNTFERON TB2+ Ag Value 0 IU/mL (.); QNTIFERON TB Positive Criteria Negative (Negative)
== END | disposition home or self-care (01) ==
LOC: MTLAB 16:31
PROVIDERS: PCP Physician Assistant; Referring Provider Internal Medicine Rheumatology; Visit Provider Internal Medicine Rheumatology
DX: M06.00 Rheumatoid arthritis without rheumatoid factor, unspecified site (principal); Z79.899 Other long term (current) drug therapy; M18.11 Unilateral primary osteoarthritis of first carpometacarpal joint, right hand; M47.892 Other spondylosis, cervical region; G43.909 Migraine, unspecified, not intractable, without status migrainosus; J45.909 Unspecified asthma, uncomplicated
CPT/HCPCS: 36415; 86480

== ENCOUNTER 2024-06-11 08:19 | Emergency (ER) | payer BC, SELFPAY ==
[2024-06-11 08:20] VITALS: BP 132/98; PULSE 87; RESP 16; TEMP 37; O2SAT 99; BMI 21.6
--- NOTE | 2024-06-11 08:47 | ED.VIS.BACK ---
HPI History of Present Illness Chief Complaint: Back Informant: patient Narrative Narrative: 58-year-old female with a history of rheumatoid arthritis, currently treated with abatacept injections, daily methotrexate and daily prednisone 4 mg with generalized low back pain that started gradually 3 days ago while she was at work, and worsened the next day suddenly while she was walking. Since then has been worse on the right. No radiation into her lower extremities. No bowel or bladder dysfunction. No fevers or chills or other systemic symptoms or abdominal pain. She states that standing is better than sitting for too long, but walking and moving hurts worse. She states the pain is really gotten severe, so she took someone else's Tylenol with codeine and a muscle relaxer, the latter of which really seem to help. She states at work she stands all day, she is in gym shoes and on concrete but there are pads to stand on as well. 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 [facility] Medical History Rheumatoid arthritis Home Medications ?Medication ?Instructions ?Recorded ?Last Taken ?Type albuterol sulfate 90 mcg/actuation 1 - 2 puff inhalation Q4H PRN PRN 07/07/16 Unknown History aerosol inhaler Asthma biotin 10 mg tablet 10 mg PO DAILY 07/07/16 Unknown History cholecalciferol (vitamin D3) 250 10,000 unit PO DAILY 07/07/16 Unknown History mcg (10,000 unit) capsule folic acid 1 mg tablet 2 mg PO DAILY@0800 07/07/16 Unknown History leucovorin calcium 5 mg tablet 25 mg PO MARKS 07/07/16 10/08/16 History methotrexate sodium 2.5 mg tablet 17.5 mg PO SA 07/07/16 10/08/16 History abatacept 125 mg/mL subcutaneous 125 mg SQ FR 11/04/16 10/08/16 History syringe acetaminophen 300 mg-codeine 30 mg 1 - 2 tab PO Q6H PRN PRN Pain #40 11/10/16 Unknown Rx tablet tabs ondansetron 4 mg disintegrating 4 mg PO Q8H PRN PRN Nausea #7 tabs 01/09/18 Unknown Rx tablet doxycycline monohydrate 100 mg 100 mg PO BID 06/11/18 Unknown History capsule fluticasone propionate 50 2 puff IN DAILY 06/11/18 Unknown History mcg/actuation nasal spray,suspension naproxen 500 mg tablet 500 mg PO BID #20 tabs 06/11/18 Unknown Rx prednisone 10 mg tablet 20 mg PO DAILY 06/11/18 Unknown History Kenalog 40 mg/mL suspension for 40 mg intra-articular ONCE #1 mL 02/02/19 Unknown Clinic injection (triamcinolone acetonide) orphenadrine citrate 100 mg 100 mg PO Q12H PRN muscle pain #14 06/11/24 Unknown Rx tablet,extended release tabs tramadol 50 mg tablet 50 mg PO Q6H PRN pain 3 days #10 06/11/24 Unknown Rx tabs Allergy/AdvReac Type Severity Reaction Status Date / Time clindamycin Allergy Rash Verified 06/11/24 08:20 Penicillins Allergy Other Verified 06/11/24 08:20 erythromycin base AdvReac Vomiting Verified 06/11/24 08:20 oxycodone AdvReac Nausea Verified 06/11/24 08:20 Social History Smoking Status: Current every day smoker tobacco type: cigarettes ROS ROS ED Constitutional Constitutional ED: Denies chills or fever(s) Gastrointestinal Gastrointestinal: Denies abdominal pain, constipation, fecal incontinence, nausea or vomiting Genitourinary Genitourinary ED: Reports other Details: no urinary retention ; Denies abdominal discomfort or urinary incontinence Musculoskeletal Musculoskeletal: Reports as per HPI and back pain; Denies neck pain Integumentary Denies rash or wounds Neurologic Neurologic: Denies headache(s), paresthesias or weakness EXAM Physical Exam Const Vital Signs: 06/11/24 08:20 Temperature 98.6 F Temperature Source Oral Pulse Rate 87 Respiratory Rate 16 Blood Pressure 132/98 H Blood Pressure Mean 109 Pulse Ox 99 Oxygen Delivery Method Room Air Positive well nourished and well developed General Appearance ED: well developed and NAD HEENT Negative for trauma or tenderness Eyes PERRL and EOMs intact bilaterally Neck full ROM and supple GI normal to inspection, nondistended, normoactive bowel sounds, soft to palpation and non-tender Back/Spine normal to inspection Lumbar Spine / Lower Back: paraspinal muscle tenderness right and straight leg raise negative bilaterally; Negative for lumbar spinal tenderness Extremity normal to inspection, full ROM and no pedal edema Neuro oriented x3, no sensory deficits noted and gait normal Sensorium / Orientation: alert Motor Exam: strength 5/5 throughout and clonus absent Deep Tendon Reflexes: Rt Patellar (L4): 2+, Lt Patellar (L4): 2+, Rt Ankle (S1): 2+ and Lt Ankle (S1): 2+ Deep Tendon Reflexes Back: Rt Patellar (L4): 2+, Lt Patellar (L4): 2+, Rt Ankle (S1): 2+ and Lt Ankle (S1): 2+ Plantar Reflex: Downgoing: bilateral Psych mental status grossly normal and thought process normal Skin no rashes or lesions noted and no wounds MDM MDM MDM Narrative Medical decision making narrative: Patient has a very slight length discrepancy of her lower extremities while sitting with legs outstretched, consistent with SI joint dysfunction which is where she is tender mostly on the right. There is no midline tenderness. I certainly think this is musculoskeletal back etiology, given her rheumatoid arthritis and prednisone that she is on as well as her age and sending her for x-rays to rule out a compression fracture or other acute bony abnormality. 3 views of my interpretation are unremarkable. Radiology in agreement. Patient was okay with an injection of Norflex here as well as a prescription for some of that and I gave her some tramadol as well. Advised to follow-up with her doctor. Radiography Diagnostic Testing: Clinical Impression(s) from Imaging Studies Lumbar Spine X-Ray 06/11/24 08:50 IMPRESSION: No acute process detected. Degenerative change Reading Location: [facility] Discharge Plan Triage Chief Complaint: Back ED Provider: Ion Chadwick Dx/Rx/DC Orders Clinical Impression: Acute low back pain Instructions: ED Back Sprain/Strain, ED Sacroiliitis Prescriptions: New orphenadrine citrate 100 mg tablet extended release 100 mg PO Q12H PRN (Reason: muscle pain) Qty: 14 0RF tramadol 50 mg tablet 50 mg PO Q6H PRN (Reason: pain) 3 Days Qty: 10 0RF No Action triamcinolone acetonide [Kenalog] 40 mg/mL suspension 40 mg INTRAARTIC ONCE Qty: 1 0RF biotin 10 MG tablet 10 mg PO DAILY methotrexate sodium 2.5 MG tablet 17.5 mg PO SA leucovorin calcium 5 MG tablet 25 mg PO MARKS folic acid 1 MG tablet 2 mg PO DAILY@0800 cholecalciferol (vitamin D3) 10,000 UNIT capsule 10,000 unit PO DAILY albuterol sulfate 1 INHALER inhaler 1 - 2 puff INHALATION Q4H PRN PRN (Reason: Asthma) abatacept 125 MG/ML syringe 125 mg SQ FR acetaminophen-codeine 1 TABLET tablet 1 - 2 tab PO Q6H PRN PRN (Reason: Pain) Qty: 40 0RF ondansetron 4 MG tablet 4 mg PO Q8H PRN PRN (Reason: Nausea) Qty: 7 0RF doxycycline monohydrate 100 MG capsule 100 mg PO BID fluticasone propionate 16 GM spray,suspension 2 puff IN DAILY Patient Comments: instill 2 sprays into each nostril once daily RINSE MOUTH AFTER USE prednisone 10 MG tablet 20 mg PO DAILY Rx Instructions: Take 4 tablets daily for 3 days, then 3 daily for 3 days, then 2 daily for 3 days, then 1 a day for 3 days then 1 QOD for 3 doses. naproxen 500 MG tablet 500 mg PO BID Qty: 20 0RF Primary Care Provider: Hari Elizondo Referrals: Hari Elizondo MD [Primary Care Provider] - 1 Week if not improving Print Language: Spanish Disposition Disposition: Home, Self Care
--- NOTE | 2024-06-11 08:50 | RAD_ITS ---
PROCEDURE: LUMBAR SPINE 2 OR 3 VIEWS 06/11/2024 REASON FOR EXAM: Pain, possible injury, history of rheumatoid arthritis. TECHNIQUE: 3 view(s) of the lumbar spine COMPARISON: None FINDINGS: Vertebrae: Vertebral body heights are maintained. Discs: Multilevel loss of disc height throughout Alignment: Scoliosis., right convex centered at L4 at AP alignment grossly within normal limits. Other: RAD/Lumbar Spine 2 or 3 Views IMPRESSION: No acute process detected. Degenerative change Reading Location: [facility]
[2024-06-11] MEDS: Orphenadrine 60 MG/2 ML Ampul IM (09:20)
[2024-06-11 10:21] VITALS: BP 142/68; PULSE 84; RESP 16; TEMP 36.6; O2SAT 99
== END 2024-06-11 10:28 | disposition home or self-care (01) ==
PROVIDERS: Emergency Provider Emergency Medicine; PCP Family Medicine; Visit Provider Emergency Medicine
DX: M54.50 Low back pain, unspecified (principal); M06.9 Rheumatoid arthritis, unspecified; F17.210 Nicotine dependence, cigarettes, uncomplicated; Z88.0 Allergy status to penicillin; Z88.1 Allergy status to other antibiotic agents; Z79.52 Long term (current) use of systemic steroids; Z79.899 Other long term (current) drug therapy
CPT/HCPCS: 72100; 96372; 99282

== ENCOUNTER → 2024-06-26 | Outpatient (CLI) | payer BC, SELFPAY ==
[2024-06-26 18:30] LABS: Absolute Lymphocyte Count 3.18 X10^3/uL (0.83-4.51); Absolute Neutrophil Count 4.2 X10^3/uL (2.0-7.7); Basophil# 0.02 X10^3/uL; Basophil% 0.2 % (0-1); Eosinophil# 0.05 X10^3/uL; Eosinophils% 0.6 % (0-5); Hematocrit 39.2 % (37-47); Hemoglobin 12.9 g/dL (12.0-15.0); Lymphocyte # 3.18 X10^3/ul (0.83-4.51); Lymphocyte % 39.7 % (19-41); Mean Corp Hgb Conc 32.9 g/dL (32-36); Mean Corpuscular Hgb 31.2 pg (27.0-32.0); Mean Corpuscular Volume 94.9 fL (81-99); Mean Platelet Vol. 9.2 fl (6.2-12.0); Monocyte# 0.55 X10^3/uL; Monocyte% 6.9 % (0-10); NRBC Flagged by Analyzer 0 % (0-5); Neutrophil # 4.19 X10^3/uL (2.7-7.7); Neutrophil % 52.4 % (47-70); Platelet Count 275 K/mm3 (150-450); RBC Distribution Width CV 13.9 % (11.6-14.6); RBC Distribution Width SD 47.8 fl (35.1-43.9); Red Blood Count 4.13 M/mm3 (4.2-5.4)
[2024-06-26 19:02] LABS: ALB/GLOB Ratio 2.2 RATIO (0.9-2.4); AST(SGOT) 25 U/L (<=31); Alanine Aminotransfer ALT/SGPT 18 U/L (<=34); Albumin, Serum 4.5 g/dL (3.5-5.0); Alkaline Phosphatase 64 U/L (35-104); Anion Gap 11 (5-15); BUN 25 mg/dL (4-19); Calcium,Total 9.5 mg/dL (7.6-11.0); Carbon Dioxide 25.9 mmol/L (21.0-32.0); Chloride 102 mmol/L (98-108); Creatinine, Serum 0.77 mg/dL (0.70-1.20); EST Glomerular Filtration Rate 89 (>60); Glucose 74 mg/dL (70-99); Potassium 4.2 mmol/L (3.3-5.1); Protein, Total 6.5 g/dL (5.9-8.4); Sodium Level 139 mmol/L (133-145); Total Bilirubin 0.24 mg/dL (0.00-1.30)
== END | disposition home or self-care (01) ==
LOC: MTLAB 16:32
PROVIDERS: PCP Family Medicine; Referring Provider Internal Medicine Rheumatology; Visit Provider Internal Medicine Rheumatology
DX: M06.00 Rheumatoid arthritis without rheumatoid factor, unspecified site (principal); Z79.899 Other long term (current) drug therapy; M18.11 Unilateral primary osteoarthritis of first carpometacarpal joint, right hand
CPT/HCPCS: 36415; 80053; 85025

== ENCOUNTER → 2024-09-24 | Outpatient (CLI) | payer BC, SELFPAY ==
[2024-09-24 12:31] LABS: Hematocrit 41.9 % (37-47); Hemoglobin 13.6 g/dL (12.0-15.0); Immature Granulocytes Count 0.030 X10^3/uL (0.0-0.0); Mean Corp Hgb Conc 32.5 g/dL (32-36); Mean Corpuscular Volume 97.0 fL (81-99); Mean Platelet Vol. 9.5 fl (6.2-12.0); NRBC Flagged by Analyzer 0 % (0-5); Platelet Count 250 K/mm3 (150-450); RBC Distribution Width CV 14.4 % (11.6-14.6); RBC Distribution Width SD 51.3 fl (35.1-43.9); Red Blood Count 4.32 M/mm3 (4.2-5.4); White Blood Count 7.8 K/mm3 (4.4-11.0)
[2024-09-24 13:01] LABS: AST(SGOT) 30 U/L (<=31); Alanine Aminotransfer ALT/SGPT 23 U/L (<=34); Albumin, Serum 4.4 g/dL (3.5-5.0); Alkaline Phosphatase 56 U/L (35-104); Anion Gap 11 (5-15); BUN 10 mg/dL (4-19); BUN/Creat Ratio 13.1 RATIO (10-20); Calcium,Total 10.2 mg/dL (7.6-11.0); Carbon Dioxide 25.6 mmol/L (21.0-32.0); Chloride 105 mmol/L (98-108); Globulin 2.1 g/dL (2.2-4.2); Glucose 100 mg/dL (70-99); Potassium 4.8 mmol/L (3.3-5.1)
== END | disposition home or self-care (01) ==
LOC: MTLAB 09:48
PROVIDERS: PCP Family Medicine; Referring Provider Internal Medicine Rheumatology; Visit Provider Internal Medicine Rheumatology
DX: M06.00 Rheumatoid arthritis without rheumatoid factor, unspecified site (principal); Z79.899 Other long term (current) drug therapy; M18.11 Unilateral primary osteoarthritis of first carpometacarpal joint, right hand
CPT/HCPCS: 36415; 80053; 85025

== ENCOUNTER → 2024-12-19 | Outpatient (CLI) | payer BC, SELFPAY ==
[2024-12-19 10:38] LABS: Hematocrit 42.8 % (37-47); Hemoglobin 13.9 g/dL (12.0-15.0); Immature Granulocytes Count 0.010 X10^3/uL (0.0-0.0); Mean Corp Hgb Conc 32.5 g/dL (32-36); Mean Corpuscular Volume 96.0 fL (81-99); Mean Platelet Vol. 9.7 fl (6.2-12.0); NRBC Flagged by Analyzer 0 % (0-5); Platelet Count 254 K/mm3 (150-450); RBC Distribution Width CV 14.0 % (11.6-14.6); RBC Distribution Width SD 49.1 fl (35.1-43.9); Red Blood Count 4.46 M/mm3 (4.2-5.4); White Blood Count 6.4 K/mm3 (4.4-11.0)
[2024-12-19 12:17] LABS: AST(SGOT) 29 U/L (<=31); Alanine Aminotransfer ALT/SGPT 23 U/L (<=34); Albumin, Serum 4.4 g/dL (3.5-5.0); Alkaline Phosphatase 54 U/L (35-104); Anion Gap 11 (5-15); BUN 14 mg/dL (4-19); BUN/Creat Ratio 18.0 RATIO (10-20); Calcium,Total 9.5 mg/dL (7.6-11.0); Carbon Dioxide 25.4 mmol/L (21.0-32.0); Chloride 103 mmol/L (98-108); Cholesterol 233 mg/dL (<=200); Globulin 2.1 g/dL (2.2-4.2); Glucose 92 mg/dL (70-99); Low Density Lipoprotein Calc. 101 mg/dL; Potassium 4.2 mmol/L (3.3-5.1); Triglycerides 100 mg/dL; Very Low Density Lipoprotein 20 mg/dL (5-40); cholesterol:hdl ratio screen 2.08
== END | disposition home or self-care (01) ==
LOC: MTLAB 07:04
PROVIDERS: PCP Family Medicine; Referring Provider Internal Medicine Rheumatology; Visit Provider Registered Nurse
DX: Z00.00 Encounter for general adult medical examination without abnormal findings (principal); M06.00 Rheumatoid arthritis without rheumatoid factor, unspecified site; Z79.899 Other long term (current) drug therapy
CPT/HCPCS: 36415; 80053; 80061; 85025

== ENCOUNTER → 2025-03-13 | Outpatient (CLI) | payer BC, SELFPAY ==
[2025-03-13 12:00] LABS: Hematocrit 42.7 % (37-47); Hemoglobin 13.9 g/dL (12.0-15.0); Immature Granulocytes Count 0.020 X10^3/uL (0.0-0.0); Mean Corp Hgb Conc 32.6 g/dL (32-36); Mean Corpuscular Volume 97.3 fL (81-99); Mean Platelet Vol. 9.1 fl (6.2-12.0); NRBC Flagged by Analyzer 0 % (0-5); Platelet Count 316 K/mm3 (150-450); RBC Distribution Width CV 13.8 % (11.6-14.6); RBC Distribution Width SD 49.5 fl (35.1-43.9); Red Blood Count 4.39 M/mm3 (4.2-5.4); White Blood Count 7.2 K/mm3 (4.4-11.0)
[2025-03-13 12:12] LABS: AST(SGOT) 31 U/L (<=31); Alanine Aminotransfer ALT/SGPT 26 U/L (<=34); Albumin, Serum 4.4 g/dL (3.5-5.0); Alkaline Phosphatase 60 U/L (35-104); Anion Gap 8 (7-18); BUN 11 mg/dL (4-19); BUN/Creat Ratio 16.8 RATIO (10-20); Calcium,Total 10.7 mg/dL (7.6-11.0); Carbon Dioxide 31.1 mmol/L (20.0-29.0); Chloride 100 mmol/L (96-106); Globulin 2.0 g/dL (2.2-4.2); Glucose 82 mg/dL (70-99); Potassium 4.6 mmol/L (3.5-5.1)
== END | disposition home or self-care (01) ==
LOC: MTLAB 09:47
PROVIDERS: PCP Family Medicine; Referring Provider Internal Medicine Rheumatology; Visit Provider Internal Medicine Rheumatology
DX: M06.00 Rheumatoid arthritis without rheumatoid factor, unspecified site (principal); Z79.899 Other long term (current) drug therapy; M18.11 Unilateral primary osteoarthritis of first carpometacarpal joint, right hand; M47.892 Other spondylosis, cervical region; G43.909 Migraine, unspecified, not intractable, without status migrainosus; J45.909 Unspecified asthma, uncomplicated
CPT/HCPCS: 36415; 80053; 85025